=== PATIENT | male | born 1970 | race Caucasian/White ===

== ENCOUNTER 2023-12-08 10:48 | Emergency (ER) | payer SELFPAY ==
[2023-12-08 11:51] VITALS: BP 122/85; PULSE 95; RESP 18; TEMP 36.9; O2SAT 97; BMI 33.0
--- NOTE | 2023-12-08 12:45 | W.ED.RECABL ---
HPI - Recheck/Abnormal Lab/Rx General: Chief Complaint: General Medical Stated Complaint: med refills (just moved in area) Time Seen by Provider: 12/08/23 12:33 Source: patient Mode of arrival: ambulatory Limitations: no limitations History of Present Illness: Patient is a 53-year-old male presents to ED today requesting a prescription for his diabetic needle syringes. Patient states he recently moved from [place] and is out of these. He states they require a prescription. He has no other complaints at this time. He states he has an appointment with primary care in one week to discuss some other chronic issues. MD complaint: medication refill request Initial visit (ago): day(s) Returns today for: request for prescription Symptoms since prior visit: no new symptoms Associated symptoms: none Related Data Allergies Allergy/AdvReac Type Severity Reaction Status Date / Time No Known Allergies Allergy Verified 12/08/23 11:56 Review of Systems Const: Denies: fever(s) Card: Denies: chest pain Resp: Denies: dyspnea GI: Denies: abdominal pain, nausea or vomiting Neuro: Denies: headache(s) or dizziness Physical Exam Const: COMMON NORMALS: no acute distress, patient oriented x3, no limitations, alert and well nourished GENERAL APPEARANCE: cooperative ORIENTATION/CONSCIOUSNESS: Yes awake, Yes oriented to person, Yes oriented to place and Yes oriented to time HENMT: COMMON NORMALS: normocephalic and atraumatic HEAD & SCALP: normal to inspection, normocephalic and atraumatic Resp: COMMON NORMALS: normal respiratory effort and clear to auscultation bilaterally AUSCULTATION: clear to auscultation bilaterally Cardio: COMMON NORMALS: regular rate and regular rhythm RATE: regular rate RHYTHM: regular rhythm : COMMON NORMALS: Yes no CVA tenderness BLADDER/KIDNEY EXAM: Yes no CVA tenderness Back/Pelvis: COMMON NORMALS: no CVA tenderness and thoracic and lumbar spine normal to inspection Extremity: GENERAL: Yes normal exam except as noted Neuro: CHENG COMA SCALE: document GCS findings Cheng coma scale eye opening: Spontaneous Cheng coma scale verbal response: Orientated Cheng coma scale motor response: Obey commands Mcewen coma scale total score: 15 COMMON NORMALS: patient oriented x3, moves all extremities, no focal motor deficits, no sensory deficits noted and gait normal SENSORIUM/ORIENTATION: Yes alert, Yes oriented to person, Yes oriented to place and Yes oriented to time Course Vital Signs: Vital signs: Vital Signs Temperature 97.8 F 12/08/23 12:46 Pulse Rate 90 12/08/23 12:46 Respiratory Rate 18 12/08/23 12:46 Blood Pressure 111/77 12/08/23 12:46 Pulse Oximetry 96 12/08/23 12:46 Oxygen Delivery Me thod Room Air 12/08/23 11:51 MDM - Recheck/Abnormal Lab/Rx Medical Decision Making Akilah Wild was able to speak to Fouzia Merchant/pharmacist and we were able to get patient an entire box of insulin syringes. He is cleared for discharge from an emergency standpoint with instructions to follow-up with primary care next week as scheduled. No radiology studies performed this visit Discharge Plan Discharge Patient Disposition: Home Clinical Impression: Prescription refill Condition: Stable Discharge Orders: Discharge ED (Routine); Ordered 12/08/23 Ordered By: Silva Oneill Coding Level of Care Code ED Technical Solutions Director for Zarina Hernandez
[2023-12-08 12:46] VITALS: BP 111/77; PULSE 90; RESP 18; TEMP 36.6; O2SAT 96
== END 2023-12-08 13:06 | disposition home or self-care (01) ==
PROVIDERS: Emergency Provider Physician Assistant
DX: Z76.0 Encounter for issue of repeat prescription (principal)
CPT/HCPCS: 99281

== ENCOUNTER → 2024-01-25 16:13 | Outpatient (BNVA) | payer BC, MEDICAID, SELFPAY | PROVIDERS: PCP Family Medicine; Visit Provider Family Medicine | DX: I25.5 Ischemic cardiomyopathy (principal); I25.10 Atherosclerotic heart disease of native coronary artery without angina pectoris; E78.00 Pure hypercholesterolemia, unspecified; Z80.42 Family history of malignant neoplasm of prostate; E08.40 Diabetes mellitus due to underlying condition with diabetic neuropathy, unspecified; F17.210 Nicotine dependence, cigarettes, uncomplicated | CPT/HCPCS: 80053; 80061; 83036; 84153; 84443; 85025 ==

== ENCOUNTER → 2024-01-26 09:19 | Outpatient (BNVA) | payer BC, MEDICAID, SELFPAY | PROVIDERS: PCP Family Medicine; Visit Provider Family Medicine | DX: I25.5 Ischemic cardiomyopathy (principal); I25.10 Atherosclerotic heart disease of native coronary artery without angina pectoris; E78.00 Pure hypercholesterolemia, unspecified; E08.40 Diabetes mellitus due to underlying condition with diabetic neuropathy, unspecified; F17.210 Nicotine dependence, cigarettes, uncomplicated; Z80.42 Family history of malignant neoplasm of prostate | CPT/HCPCS: 82043 ==

== ENCOUNTER → 2024-03-14 15:39 | Outpatient (BNVA) | payer BC, MEDICAID, SELFPAY | PROVIDERS: PCP Family Medicine; Visit Provider Internal Medicine Cardiovascular Disease | DX: R07.9 Chest pain, unspecified (principal); R06.02 Shortness of breath; I25.118 Atherosclerotic heart disease of native coronary artery with other forms of angina pectoris; E78.00 Pure hypercholesterolemia, unspecified; I25.5 Ischemic cardiomyopathy; I10 Essential (primary) hypertension; Z86.718 Personal history of other venous thrombosis and embolism; F17.210 Nicotine dependence, cigarettes, uncomplicated; Z82.49 Family history of ischemic heart disease and other diseases of the circulatory system | CPT/HCPCS: 36415; 80048; 83880; 93005 ==

== ENCOUNTER → 2024-04-25 13:45 | Outpatient (BNVA) | payer BC, MEDICAID, SELFPAY | PROVIDERS: PCP Family Medicine; Visit Provider Family Medicine | DX: I25.5 Ischemic cardiomyopathy (principal); E08.40 Diabetes mellitus due to underlying condition with diabetic neuropathy, unspecified | CPT/HCPCS: 80048; 83036 ==

== ENCOUNTER 2024-06-02 10:45 | Emergency (ER) | payer BC, MEDICAID, SELFPAY ==
[2024-06-02 11:11] VITALS: BP 116/79; PULSE 78; RESP 16; TEMP 36.8; O2SAT 100; BMI 30.4
--- NOTE | 2024-06-02 11:17 | USR_ITS ---
PROCEDURE INFORMATION: Exam: US Duplex Left Lower Extremity Arteries Or Arterial Bypass Grafts Exam date and time: 06/02/2024 11:48 AM Age: 53 years old Clinical indication: Pain; Leg, lower; Left; Prior surgery; Surgery date: 6+ months; Surgery type: Unsure of patients correct history. Patient states he had a clot removed from leg and possible stent; Additional info: Leg pain, pvd, TECHNIQUE: Imaging protocol: Left Real-time duplex scan of the arteries or arterial bypass grafts of the left lower extremity with 2-D richard scale, color Doppler flow and spectral waveform analysis. Images documented and saved. COMPARISON: No relevant prior studies available. FINDINGS: Left common femoral artery: No occlusion or significant stenosis. Normal waveform. Left superficial femoral artery: No occlusion or significant stenosis. Normal waveform. Left popliteal artery: No occlusion or significant stenosis. Normal waveform. Left calf/foot arteries: Monophasic waveform is seen in the posterior tibial artery and dorsalis pedis artery. The anterior tibial artery and peroneal artery were not evaluated. Other findings: Ankle-brachial index is 0.55 US/CV arterial duplex [facility] [id number] IMPRESSION: 1. Findings suggest moderate left lower extremity PVD. 2. Findings suggest hemodynamically significant stenosis in the runoff vessels in the calf.
[2024-06-02 11:20] VITALS: BP 116/79; PULSE 76; RESP 18; O2SAT 98
--- NOTE | 2024-06-02 11:37 | W.ED.EXTPRO ---
HPI - Extremity Problem General: Chief complaint: Extremity Problem,Nontraumatic Stated complaint: pain in L leg, numbness, burining, redness Time Seen by Provider: 06/02/24 11:13 History of Present Illness: 53-year-old man with a history of peripheral vascular disease and history of thrombectomy in his left leg, chronic anticoagulation on Eliquis, continued tobacco dependence, hypertension and diabetes who presents to the emergency room with left leg pain. This been going on for few days now worsening. He has noticed some discoloration in his leg. The pain is from scar where he had a fasciotomy in the past when he had a blood clot. He says he also had stents placed. Leg does not feel cool at this time but he says it feels a lot like when he had the clot before. However pain is mostly from his scar down to his foot. Burning type pain. Related Data Home Medications ?Medication ?Instructions ?Recorded ?Confirmed insulin glargine 100 unit/mL 1 unit SUBCUT .sliding scale 12/15/23 06/02/24 subcutaneous solution Previous Rx's ?Medication ?Instructions ?Recorded apixaban 5 mg tablet (Eliquis) 5 mg PO BID #60 tabs 01/25/24 atorvastatin 80 mg tablet 80 mg PO DAILY #30 tabs 01/25/24 empagliflozin 25 mg tablet 25 mg PO DAILY #30 tabs 01/25/24 (Jardiance) losartan 25 mg tablet 12.5 mg (1/2 x 25 mg) PO DAILY #30 01/25/24 tabs methocarbamol 500 mg tablet 500 mg PO TID PRN muscle spasm #90 01/25/24 tabs metoprolol tartrate 25 mg tablet 12.5 mg (1/2 x 25 mg) PO BID #60 01/25/24 tabs spironolactone 25 mg tablet 25 mg PO DAILY #30 tabs 01/25/24 nitroglycerin 0.4 mg sublingual 0.4 mg sublingual Q5M PRN chest 03/14/24 tablet pain 30 days #30 tabs furosemide 20 mg tablet 20 mg PO DAILY PRN fluid retention 03/22/24 #30 tabs potassium chloride 8 mEq 8 meq PO DAILY PRN Take with 03/22/24 capsule,extended release furosemide #30 caps gabapentin 300 mg capsule 300 mg PO TID #90 caps 04/25/24 aspirin 81 mg chewable tablet 81 mg PO DAILY #30 tabs 05/31/24 hydrocodone 5 mg-acetaminophen 325 1 tab PO Q8H PRN pain #14 tabs 06/02/24 mg tablet polyethylene glycol 3350 17 17 g PO DAILY #510 grams 06/02/24 gram/dose oral powder (Miralax) Allergies Allergy/AdvReac Type Severity Reaction Status Date / Time No Known Allergies Allergy Verified 04/25/24 13:13 Review of Systems Narrative: Constitutional symptoms: Negative except as documented in HPI. Skin symptoms: Negative except as documented in HPI. Eye symptoms: Negative except as documented in HPI. ENMT symptoms: Negative except as documented in HPI. Respiratory symptoms: Negative except as documented in HPI. Cardiovascular symptoms: Negative except as documented in HPI. Gastrointestinal symptoms: Negative except as documented in HPI. Genitourinary symptoms: Negative except as documented in HPI. Musculoskeletal symptoms: Negative except as documented in HPI. Neurologic symptoms: Negative except as documented in HPI. Psychiatric symptoms: Negative except as documented in HPI. Endocrine symptoms: Negative except as documented in HPI. PFSH ED PFSH: Medical History Family hx of prostate cancer Uncontrolled type 2 diabetes mellitus with insulin therapy Nicotine dependence, cigarettes, uncomplicated CAD (coronary artery disease) hx of [place] in past (he didn't realize it, testing shows it) Cardiomyopathy EF 21% October 2023; EF 38% on ECHO done in [place] 02.02.24 Diabetic neuropathy associated with diabetes mellitus due to underlying condition History of arterial thrombosis Left leg arterial thromboembolism Hypercholesterolemia Type 2 diabetes mellitus HTN (hypertension) with goal to be determined Surgical History Hx of cardiac cath 10.16.23 [facility]: CAD of LAD and RCA Hx of fasciotomy left lower leg--had 4 compartment fasciotomy for compartment syndrome after arterial thromboembolism 10/24 History of thrombectomy L leg intra-arterial thrombolysis, thromboendarterectomy w/ L SFA stenting Family History Father Hypertension Heart disease Prostate cancer Renal cancer Mother Lung disease Hypertension Brother CAD (coronary artery disease) Chronic kidney disease (CKD) Social History Smoking and tobacco/nicotine status: current every day tobacco/nicotine user cigarettes Packs smoked per day: 1 [ Other cigarette details: now 06/04ppd 04.25.24] Alcohol intake: former Year of sobriety/quit date alcohol: 2019 Substance/Drug Use: never Household members: family Housing: Other Details: currently living with sister and her Marital status: Number of children: 0 Highest education level completed: 10th Grade Current occupational status: unemployed 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 Skin: Warm, dry. There is a mild vasculitic appearing rash on the median side of the left leg. Head: Normocephalic, atraumatic. Neck: Supple, trachea midline. Eye: Extraocular movements are intact. Ears, nose, mouth and throat: mucosa moist. Cardiovascular: Regular, Normal peripheral perfusion. Slightly diminished pedal pulses. However he does have good cap refill. Leg is not cool. Respiratory: Lungs are clear to auscultation, respirations are non-labored, breath sounds are equal, Symmetrical chest wall expansion. Gastrointestinal: Soft, Nontender, Non distended Musculoskeletal: Normal ROM, no deformity. Neurological: Alert and oriented, No focal neurological deficit observed. Psychiatric: Cooperative, appropriate mood & affect. Course Vital Signs: Vital signs: Vital Signs Temperature 98.2 F 06/02/24 11:11 Pulse Rate 76 06/02/24 11:20 Respiratory Rate 18 06/02/24 11:20 Blood Pressure 116/79 06/02/24 11:20 Pulse Oximetry 98 06/02/24 11:20 Oxygen Delivery Me thod Room Air 06/02/24 11:11 MDM - Extremity (Nontraumatic) Medical Decision Making Arterial duplex ultrasound: No evidence of acute arterial occlusion. This was reviewed and interpreted by myself the emergency room physician. I also reviewed the radiology report. Lab Review: Laboratory results were reviewed and interpreted by myself the emergency room physician. No leukocytosis. Stable polycythemia. No renal failure. I reviewed the patient's medical record. Reexamination: Patient remained stable. No increased work of breathing. No altered mental status. No focal motor deficits. Assessment and plan: Neuropathic pain Peripheral vascular disease Tobacco dependence ? Patient is appropriately anticoagulated. I have stressed repeatedly that he must stop smoking. He does appear to have some sort of vasculitic appearing rash on his leg but no major vascular occlusions. He received IV Dilaudid and Zofran here in the emergency room. He will follow-up with his primary care provider and his wrinkle chaser as soon as possible. - Discharged home - Discussed plan with patient. Answered any questions. - Evaluation and treatment of this problem were appropriate in the emergency setting. Lab Data 06/02/24 11:46 06/02/24 11:46 Laboratory Results WBC 10.81 10^3/uL (3.29-11.43) 06/02/24 11:46 RBC 6.14 10^6/uL (3.85-5.65) H 06/02/24 11:46 Hgb 17.00 g/dL (11.27-16.99) H 06/02/24 11:46 Hct 51.6 % (37-53) 06/02/24 11:46 MCV 84.0 fl (82-101) 06/02/24 11:46 MCH 27.7 pg (27-33) 06/02/24 11:46 MCHC 32.9 g/dL (30-55) 06/02/24 11:46 RDW 14.4 % (12.1-15.1) 06/02/24 11:46 Plt Count 867 10^3/cmm (157-399) H 06/02/24 11:46 MPV 9.0 fL (7.4-10.4) 06/02/24 11:46 Neut % (Auto) 59.8 % 06/02/24 11:46 Lymph % (Auto) 32.9 % 06/02/24 11:46 Routt % (Auto) 4.6 % 06/02/24 11:46 Eos % (Auto) 1.9 % 06/02/24 11:46 Baso % (Auto) 0.5 % 06/02/24 11:46 Neut # (Auto) 6.46 10^3/uL (1.8-7.7) 06/02/24 11:46 Lymph # (Auto) 3.6 10^3/uL (0.8-4.8) 06/02/24 11:46 Routt # (Auto) 0.5 10^3/uL (0.2-0.9) 06/02/24 11:46 Eos # (Auto) 0.2 10^3/uL (0.0-0.8) 06/02/24 11:46 Baso # (Auto) 0.1 10^3/uL (0.0-0.1) 06/02/24 11:46 Nucleated RBC % (auto) 0 % 06/02/24 11:46 Nucleated RBCs # 0.0 /100WBC 06/02/24 11:46 PT 14.60 SECONDS (12.1-14.9) 06/02/24 11:46 INR 1.06 (0.8-1.2) 06/02/24 11:46 APTT 34.2 SECONDS (23.9-36.7) 06/02/24 11:46 Sodium 137 mmol/L (136-145) 06/02/24 11:46 Potassium 4.1 mmol/L (3.5-5.1) 06/02/24 11:46 Chloride 100 mmol/L (98-107) 06/02/24 11:46 Carbon Dioxide 24 mmol/L (22-29) 06/02/24 11:46 Anion Gap 17.1 (5-19) 06/02/24 11:46 BUN 17 mg/dL (6-20) 06/02/24 11:46 Creatinine 0.7 mg/dL (0.7-1.2) 06/02/24 11:46 GFR Calculation 118.0 mL/min (90-130) 06/02/24 11:46 Glucose 165 mg/dL (65-115) H 06/02/24 11:46 Calculated Osmolality 289 mOsm/kg (285-295) 06/02/24 11:46 Lactic Acid 1.6 mmol/L (0.5-2.2) 06/02/24 11:46 Calcium 9.2 mg/dL (8.5-10.5) 06/02/24 11:46 Total Bilirubin 0.4 mg/dL (0.15-1.2) 06/02/24 11:46 AST 26 U/L (0-40) 06/02/24 11:46 ALT 43 U/L (0-41) H 06/02/24 11:46 Alkaline Phosphatase 102 U/L (40-130) 06/02/24 11:46 Total Protein 7.4 g/dL (6.6-8.7) 06/02/24 11:46 Albumin 4.2 g/dL (3.5-5.2) 06/02/24 11:46 Globulin 3.2 g/dL (1.3-4.6) 06/02/24 11:46 All radiology interpretation(s) finalized by discharge Discharge Plan Discharge Patient Disposition: Home Clinical Impression: Neuropathic pain, PVD (peripheral vascular disease), Tobacco dependence, Chronic anticoagulation Condition: Stable Prescriptions: New hydrocodone-acetaminophen 5-325 mg tablet 1 tab PO Q8H PRN (Reason: pain) Qty: 14 0RF Rx Instructions: Take 1/2 to 1 tab every 8 hours as needed for pain polyethylene glycol 3350 [Miralax] 17 gram/dose powder 17 g PO DAILY Qty: 510 0RF Rx Instructions: Take 1 scoop daily while taking pain medications. No Action insulin glargine 100 unit/mL solution 1 unit SUBCUT .sliding scale gabapentin 300 mg capsule 300 mg PO TID Qty: 90 1RF Eliquis 5 mg tablet 5 mg PO BID Qty: 60 5RF atorvastatin 80 mg tablet 80 mg PO DAILY Qty: 30 5RF Jardiance 25 mg tablet 25 mg PO DAILY Qty: 30 5RF losartan 25 mg tablet 12.5 mg PO DAILY Qty: 30 5RF methocarbamol 500 mg tablet 500 mg PO TID PRN (Reason: muscle spasm) Qty: 90 5RF metoprolol tartrate 25 mg tablet 12.5 mg PO BID Qty: 60 5RF spironolactone 25 mg tablet 25 mg PO DAILY Qty: 30 5RF nitroglycerin 0.4 mg tablet, sublingual 0.4 mg sublingual Q5M PRN (Reason: chest pain) 30 Days Qty: 30 3RF Rx Instructions: until response; do not exceed 3 doses per episode furosemide 20 mg tablet 20 mg PO DAILY PRN (Reason: fluid retention) Qty: 30 3RF potassium chloride 8 mEq capsule, extended release 8 meq PO DAILY PRN (Reason: Take with furosemide) Qty: 30 3RF aspirin 81 mg tablet,chewable 81 mg PO DAILY Qty: 30 5RF Discharge Orders: Discharge ED (Routine); Ordered 06/02/24 Ordered By: Sonya Addison Referrals: Chayo Gomez MD [Primary Care Provider] - 1-3 days (Please call for urgent follow-up with your primary provider) Discharge Diet: Usual diet Discharge Activity: Increase activity as tolerated Patient Instructions: Opioid Safety, Pain Management Activity Restrictions/Additional Instructions: Thank you for choosing [facility] for your healthcare needs today. Please realize this is an emergency room and that we are providing you with a medical screening exam and this may not be complete and all inclusive of all the testing and or work up that you may need to determine your ailment or severity of your illness. You have been screened and evaluated and felt safe for discharge. Health conditions do change or evolve sometimes and as such it is important that you follow up with your Primary Doctor to be re checked, 3-5 days is a general good time frame for follow up. You are always welcome to return to the ED for re assessment if your symptoms are worsening or you have new concerns Print Language: Maori Coding Level of Care Code ED Certified Welding Inspector for Zarina Hernandez
[2024-06-02 11:53] LABS: Basophils # 0.1 10^3/uL (0.0-0.1); Basophils % 0.5 %; Eosinophils # 0.2 10^3/uL (0.0-0.8); Eosinophils % 1.9 %; Hematocrit 51.6 % (37-53); Lymphocytes # 3.6 10^3/uL (0.8-4.8); Lymphocytes % 32.9 %; Mean Corpuscular HGB Conc 32.9 g/dL (30-55); Mean Corpuscular Hemoglobin 27.7 pg (27-33); Monocytes # 0.5 10^3/uL (0.2-0.9); Monocytes % 4.6 %; Neutrophils # 6.46 10^3/uL (1.8-7.7); Neutrophils % 59.8 %; Nucleated Red Blood Cells % 0 %; Platelet Count 867 10^3/cmm (157-399); Red Blood Count 6.14 10^6/uL (3.85-5.65); Red Cell Distribution Width 14.4 % (12.1-15.1); White Blood Count 10.81 10^3/uL (3.29-11.43)
[2024-06-02 12:03] LABS: INR 1.06 (0.8-1.2)
[2024-06-02 12:04] LABS: Partial Thromboplastin Time 34.2 SECONDS (23.9-36.7)
[2024-06-02 12:08] LABS: Alanine Aminotransferase 43 U/L (0-41); Albumin Level 4.2 g/dL (3.5-5.2); Alkaline Phosphatase 102 U/L (40-130); Anion Gap 17.1 (5-19); Aspartate Amino Transferase 26 U/L (0-40); Blood Urea Nitrogen 17 mg/dL (6-20); Calcium 9.2 mg/dL (8.5-10.5); Carbon Dioxide 24 mmol/L (22-29); Chloride 100 mmol/L (98-107); Creatinine Clr Calc Pharmacy 168.1986; Globulin 3.2 g/dL (1.3-4.6); Glucose 165 mg/dL (65-115); Lactic Sepsis W/Reflex 1.6 mmol/L (0.5-2.2); Osmolality Calculated 289 mOsm/kg (285-295); Potassium 4.1 mmol/L (3.5-5.1); Sodium 137 mmol/L (136-145); Total Bilirubin 0.4 mg/dL (0.15-1.2); Total Protein 7.4 g/dL (6.6-8.7)
[2024-06-02] MEDS: ondansetron 2 mg/ML SDV 2 mL 4 MG IVP (12:27)
[2024-06-02] MEDS: HYDROMORPHONE HCL 0.5 MG/0.5 ML INJ 1 MG IVP (12:29)
[2024-06-02 13:46] VITALS: BP 108/77; PULSE 74; RESP 18; O2SAT 95
== END 2024-06-02 13:48 | disposition home or self-care (01) ==
PROVIDERS: Emergency Provider Emergency Medicine; PCP Family Medicine
DX: I70.202 Unspecified atherosclerosis of native arteries of extremities, left leg (principal); F17.210 Nicotine dependence, cigarettes, uncomplicated; Z79.01 Long term (current) use of anticoagulants; M79.2 Neuralgia and neuritis, unspecified; Z79.4 Long term (current) use of insulin; Z79.82 Long term (current) use of aspirin; I25.10 Atherosclerotic heart disease of native coronary artery without angina pectoris; E11.9 Type 2 diabetes mellitus without complications; I10 Essential (primary) hypertension
CPT/HCPCS: 36415; 80053; 83605; 85025; 85610; 85730; 93926; 96374; 96375; 99284; J1171; J2405

== ENCOUNTER 2024-06-19 15:33 | Outpatient (CLI) | payer BC, MEDICAID, SELFPAY ==
--- NOTE | 2024-06-19 16:00 | CTR_ITS ---
PROCEDURE INFORMATION: Exam: CTA Abdominal Aorta and Bilateral Lower Extremities (Run-off) With Contrast Exam date and time: 06/19/2024 4:00 PM Age: 53 years old Clinical indication: Foot pain; Prior surgery; Surgery date: 1-6 months; Surgery type: Left lower leg blood clot removal and stent; Pain in left lower extremity, left side toes turning black, 1st and 5th with blisters. Heavy smoker; Additional info: Left lower extremity pain TECHNIQUE: Imaging protocol: Computed tomographic angiography of the of the abdominal aorta, pelvis and bilateral lower extremities with contrast. 3D rendering (Not supervised by radiologist): MIP and/or 3D reconstructed images were created by the technologist. Radiation optimization: All CT scans at this facility use at least one of these dose optimization techniques: automated exposure control; mA and/or kV adjustment per patient size (includes targeted exams where dose is matched to clinical indication); or iterative reconstruction. Contrast material: OMNIPAQUE 350; Contrast volume: 125 ml; Contrast route: INTRAVENOUS (IV); COMPARISON: [place] [id number] 06/02/2024 11:48 AM RADIATION DOSE METRICS: Total DLP (mGy-cm): 1871.66 FINDINGS: Aorta: No aortic aneurysm. No aortic dissection. Celiac trunk and mesenteric arteries: No occlusion or significant stenosis. Renal arteries: No occlusion or significant stenosis. Right iliac arteries: The right common iliac and external iliac artery are patent. Right femoral/popliteal arteries: The right common femoral artery, superficial femoral artery and popliteal artery are patent. Right infrapopliteal arteries: The right posterior tibial and peroneal arteries are opacified down to the level of the ankle. The right anterior tibial artery is opacified down to the level of the mid calf. Left iliac arteries: The left common iliac artery and external iliac artery are patent. Left femoral/popliteal arteries: The left common femoral artery is patent. There is severe stenosis in the mid left superficial femoral artery (series 6, image 533) just distal to this stenosis there is a patent stent in the left superficial femoral artery. The left popliteal artery is patent. Left infrapopliteal arteries: The left anterior tibial, posterior tibial and peroneal arteries are occluded at their origin. Lungs: There are 2 juxtapleural pulmonary nodules measuring up to 11 mm (series 6, image 25) impression in the right middle lobe and a triangular juxtapleural pulmonary nodule in the right lung base measuring up to 10 mm. Liver: No mass. Gallbladder and biliary ducts: Unremarkable. No calcified stones. No ductal dilation. Pancreas: Unremarkable. No mass. No ductal dilation. Spleen: Multiple punctate calcifications in the spleen consistent with prior granulomatous infection. Adrenal glands: Normal. No mass. Kidneys and ureters: Bilateral simple appearing renal cysts are present which do not need further follow-up. Stomach and bowel: Unremarkable. No obstruction. No mucosal thickening. Appendix: No evidence of appendicitis. Urinary bladder: Unremarkable. No mass. Reproductive: Unremarkable as visualized. Intraperitoneal space: Unremarkable. No free air. No significant fluid collection. Lymph nodes: No lymphadenopathy. Bones/joints: No acute fracture. No dislocation. Soft tissues: Unremarkable. CT/CT angio abd aorta runof [id number] IMPRESSION: 1. The right common iliac and external iliac artery are patent. 2. The right common femoral artery, superficial femoral artery and popliteal artery are patent. 3. The right posterior tibial and peroneal arteries are opacified down to the level of the ankle. The right anterior tibial artery is opacified down to the level of the mid calf. 4. The left common iliac artery and external iliac artery are patent. 5. The left common femoral artery is patent. There is severe stenosis in the mid left superficial femoral artery (series 6, image 533) just distal to this stenosis there is a patent stent in the left superficial femoral artery. The left popliteal artery is patent. 6. The left anterior tibial, posterior tibial and peroneal arteries are occluded at their origin. 7. There are 2 juxtapleural pulmonary nodules measuring up to 11 mm (series 6, image 25) impression in the right middle lobe and a triangular juxtapleural pulmonary nodule in the right lung base measuring up to 10 mm. For patients at low risk (minimal or absent history of smoking and of other known risk factors), recommend CT Chest at 3-6 months, then consider CT Chest at 18-24 months. For patients at high risk (history of smoking or of other known risk factors), recommend CT Chest at 3-6 months, then CT Chest at 18-24 months. (Reference: Donna) References: Donna Huff et al. Guidelines for Management of Incidental Pulmonary Nodules Detected on CT Images: From the Fleischner Society 2017. Radiology. 2017;284(1):228-243.
[2024-06-19] MEDS: iohexol 350 mg/mL 500 mL Btl (per mL) IV (16:15)
== END 2024-06-19 15:34 | disposition home or self-care (01) ==
PROVIDERS: PCP Family Medicine; Visit Provider Nurse Practitioner Family
DX: Z86.718 Personal history of other venous thrombosis and embolism (principal); R93.89 Abnormal findings on diagnostic imaging of other specified body structures; I70.202 Unspecified atherosclerosis of native arteries of extremities, left leg; I70.8 Atherosclerosis of other arteries; R91.8 Other nonspecific abnormal finding of lung field; D73.89 Other diseases of spleen; N28.1 Cyst of kidney, acquired
CPT/HCPCS: 75635

== ENCOUNTER 2024-06-19 20:08 | Emergency (ER) | payer BC, MEDICAID, SELFPAY ==
[2024-06-19 20:10] VITALS: BP 116/79; PULSE 82; RESP 18; TEMP 36.6; O2SAT 98; BMI 31.0
[2024-06-19 21:35] VITALS: BP 125/94; PULSE 77; RESP 18; O2SAT 95
[2024-06-19] MEDS: morphine 4 mg/mL SDV 1 mL 10 MG IM (21:41)
[2024-06-19] MEDS: ondansetron hcl ODT 4 mg Tab PO (21:41)
[2024-06-19 22:01] VITALS: BP 125/94; PULSE 83; RESP 18; O2SAT 94
[2024-06-19 22:17] VITALS: BP 125/94; PULSE 83; RESP 18; O2SAT 94
--- NOTE | 2024-06-20 03:03 | W.ED.EXTPRO ---
HPI - Extremity Problem General: Chief complaint: Extremity Injury, Lower Stated complaint: Dr Infante Blood Clots in L Leg Below Knee Time Seen by Provider: 06/19/24 20:23 History of Present Illness: This patient is a 53-year-old white male who was sent to the emergency department for arterial clots in the left leg . Patient had undergone a CT angiogram of the lower extremities earlier today. Angiogram did reveal some occlusions. Patient has had pain in the left leg and foot. He has noticed some discoloration of the toes. He does have a history of peripheral vascular disease and had had a stent placed in the left lower extremity in [place]. Related Data Home Medications ?Medication ?Instructions ?Recorded ?Confirmed insulin glargine 100 unit/mL 1 unit SUBCUT .sliding scale 12/15/23 06/17/24 subcutaneous solution Previous Rx's ?Medication ?Instructions ?Recorded apixaban 5 mg tablet (Eliquis) 5 mg PO BID #60 tabs 01/25/24 atorvastatin 80 mg tablet 80 mg PO DAILY #30 tabs 01/25/24 losartan 25 mg tablet 12.5 mg (1/2 x 25 mg) PO DAILY #30 01/25/24 tabs methocarbamol 500 mg tablet 500 mg PO TID PRN muscle spasm #90 01/25/24 tabs metoprolol tartrate 25 mg tablet 12.5 mg (1/2 x 25 mg) PO BID #60 01/25/24 tabs spironolactone 25 mg tablet 25 mg PO DAILY #30 tabs 01/25/24 nitroglycerin 0.4 mg sublingual 0.4 mg sublingual Q5M PRN chest 03/14/24 tablet pain 30 days #30 tabs furosemide 20 mg tablet 20 mg PO DAILY PRN fluid retention 03/22/24 #30 tabs potassium chloride 8 mEq 8 meq PO DAILY PRN Take with 03/22/24 capsule,extended release furosemide #30 caps gabapentin 300 mg capsule 300 mg PO TID #90 caps 04/25/24 aspirin 81 mg chewable tablet 81 mg PO DAILY #30 tabs 05/31/24 polyethylene glycol 3350 17 17 g PO DAILY #510 grams 06/02/24 gram/dose oral powder (Miralax) glimepiride 4 mg tablet 4 mg PO DAILY #90 tabs 03/17/25 oxycodone 5 mg tablet 5 mg PO Q8H PRN pain 7 days #20 06/17/24 tabs oxycodone-acetaminophen 5 mg-325 1 tab PO Q4H PRN pain #30 tabs 06/19/24 mg tablet (Percocet) Allergies Allergy/AdvReac Type Severity Reaction Status Date / Time No Known Allergies Allergy Verified 06/17/24 16:21 Review of Systems General: Reports: 10 or more systems reviewed and unremarkable except in HPI and below Musc: Reports: extremity pain (Left leg and foot) PFSH ED PFSH: Medical History (Updated 06/19/24 @ 22:13 by Luis Gary MD) Blister of foot, left Arterial insufficiency of lower extremity Left lower leg--CTA scheduled 06.19.24 Family hx of prostate cancer Uncontrolled type 2 diabetes mellitus with insulin therapy Nicotine dependence, cigarettes, uncomplicated CAD (coronary artery disease) hx of IA in past (he didn't realize it, testing shows it) Cardiomyopathy EF 21% October 2023; EF 38% on ECHO done in [place] 02.02.24 Diabetic neuropathy associated with diabetes mellitus due to underlying condition History of arterial thrombosis Left leg arterial thromboembolism Hypercholesterolemia Type 2 diabetes mellitus HTN (hypertension) with goal to be determined Surgical History Hx of cardiac cath 10.16.23 [facility]: CAD of LAD and RCA Hx of fasciotomy left lower leg--had 4 compartment fasciotomy for compartment syndrome after arterial thromboembolism 10/24 History of thrombectomy L leg intra-arterial thrombolysis, thromboendarterectomy w/ L SFA stenting Family History Father Hypertension Heart disease Prostate cancer Renal cancer Mother Lung disease Hypertension Brother CAD (coronary artery disease) Chronic kidney disease (CKD) Social History Smoking and tobacco/nicotine status: current every day tobacco/nicotine user cigarettes Packs smoked per day: 1 [ Other cigarette details: now 06/04ppd 04.25.24] Alcohol intake: former Year of sobriety/quit date alcohol: 2019 Substance/Drug Use: never Household members: family Housing: Other Details: currently living with sister and her Marital status: Number of children: 0 Highest education level completed: 10th Grade Current occupational status: unemployed 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 [employer] Physical Exam Const: COMMON NORMALS: no acute distress, patient oriented x3 and no limitations GENERAL APPEARANCE: cooperative and comfortable HENMT: COMMON NORMALS: normocephalic, atraumatic, Normal nasal mucous membranes and turbinates present, moist oral mucous membranes and oropharynx normal HEAD & SCALP: normal to inspection, normocephalic and atraumatic FACE & SINUS: normal facial exam NOSE: Normal nasal mucous membranes and turbinates present Eye: COMMON NORMALS: Equal, round and reactive pupils present, EOMs intact bilaterally and conjunctivae normal GENERAL EYE: appearance normal, both eyes and all related structures CONJUNCTIVA: Yes conjunctivae normal PUPIL: Yes Equal, round and reactive pupils present Neck/C-Spine: COMMON NORMALS: supple and no JVD Chest: COMMONS NORMALS: normal inspection of the chest Resp: COMMON NORMALS: normal respiratory effort and clear to auscultation bilaterally AUSCULTATION: clear to auscultation bilaterally Cardio: COMMON NORMALS: no JVD, regular rate, regular rhythm, No gallops present (Cardio), No murmurs present (Cardio) and No rub (Cardio) RATE: regular rate RHYTHM: regular rhythm GI: COMMON NORMALS: Normal to inspection, nondistended, normoactive bowel sounds present, Soft to palpation and non-tender AUSCULTATION: Yes normoactive bowel sounds PALPATION: Yes Soft to palpation : COMMON NORMALS: Yes no CVA tenderness BLADDER/KIDNEY EXAM: Yes no CVA tenderness Back/Pelvis: COMMON NORMALS: no CVA tenderness and thoracic and lumbar spine normal to inspection Extremity: NARRATIVE EXTREMITY EXAM: The left foot was pink and warm. Brisk capillary refill in all of the toes. He did have some bluish discoloration of the tip of the great toe as well as the second toe on the left foot. Neuro: COMMON NORMALS: patient oriented x3 and CN's II-XII intact bilaterally Psych: COMMON NORMALS: mental status grossly normal, Normal thought process present and cooperative THOUGHT PROCESS: Normal thought process present Skin: COMMON NORMALS: no rashes or lesions noted, turgor normal and no jaundice GENERAL SKIN EXAM: no rashes or lesions noted and turgor normal Course Vital Signs: Vital signs: Vital Signs Temperature 97.9 F 06/19/24 20:10 Pulse Rate 83 06/19/24 22:17 Respiratory Rate 18 06/19/24 22:17 Blood Pressure 125/94 06/19/24 22:17 Pulse Oximetry 94 06/19/24 22:17 Oxygen Delivery Me thod Room Air 06/19/24 21:35 MDM - Extremity (Nontraumatic) Medical Decision Making I discussed the case with the vascular surgeon at [facility], Dr. Engel. I reviewed the CT angiogram with him. He does not feel the patient needs any immediate intervention. He would like the patient contact his clinic tomorrow to schedule an appointment for further workup and recommendations. I did prescribe oxycodone for his pain. Patient was given a morphine injection in the emergency department for his pain. He was discharged in stable condition. No radiology studies performed this visit Discharge Plan Discharge Patient Disposition: Home Clinical Impression: Peripheral vascular disease Condition: Stable Prescriptions: New oxycodone-acetaminophen [Percocet] 5-325 mg tablet 1 tab PO Q4H PRN (Reason: pain) Qty: 30 0RF No Action insulin glargine 100 unit/mL solution 1 unit SUBCUT .sliding scale gabapentin 300 mg capsule 300 mg PO TID Qty: 90 1RF Eliquis 5 mg tablet 5 mg PO BID Qty: 60 5RF atorvastatin 80 mg tablet 80 mg PO DAILY Qty: 30 5RF losartan 25 mg tablet 12.5 mg PO DAILY Qty: 30 5RF methocarbamol 500 mg tablet 500 mg PO TID PRN (Reason: muscle spasm) Qty: 90 5RF metoprolol tartrate 25 mg tablet 12.5 mg PO BID Qty: 60 5RF spironolactone 25 mg tablet 25 mg PO DAILY Qty: 30 5RF nitroglycerin 0.4 mg tablet, sublingual 0.4 mg sublingual Q5M PRN (Reason: chest pain) 30 Days Qty: 30 3RF Rx Instructions: until response; do not exceed 3 doses per episode glimepiride 4 mg tablet 4 mg PO DAILY Qty: 90 0RF oxycodone 5 mg tablet 5 mg PO Q8H PRN (Reason: pain) 7 Days Qty: 20 0RF furosemide 20 mg tablet 20 mg PO DAILY PRN (Reason: fluid retention) Qty: 30 3RF potassium chloride 8 mEq capsule, extended release 8 meq PO DAILY PRN (Reason: Take with furosemide) Qty: 30 3RF aspirin 81 mg tablet,chewable 81 mg PO DAILY Qty: 30 5RF polyethylene glycol 3350 [Miralax] 17 gram/dose powder 17 g PO DAILY Qty: 510 0RF Rx Instructions: Take 1 scoop daily while taking pain medications. Discharge Orders: Discharge ED (Routine); Ordered 06/19/24 Ordered By: Luis Gary Referrals: Chayo Gomez MD [Primary Care Provider] - Patient Instructions: Peripheral Vascular Disease (ED), Opioid Safety, Pain Management Activity Restrictions/Additional Instructions: Call Dr. Engel's office tomorrow to schedule an appointment. Print Language: Macedonian Coding Level of Care Code ED Assistant Administrator for Zarina Hernandez
== END 2024-06-19 22:29 | disposition home or self-care (01) ==
PROVIDERS: Emergency Provider Emergency Medicine; PCP Family Medicine
DX: I73.9 Peripheral vascular disease, unspecified (principal); M79.605 Pain in left leg; Z79.01 Long term (current) use of anticoagulants; Z79.82 Long term (current) use of aspirin; F17.210 Nicotine dependence, cigarettes, uncomplicated; I25.10 Atherosclerotic heart disease of native coronary artery without angina pectoris; I10 Essential (primary) hypertension; E11.40 Type 2 diabetes mellitus with diabetic neuropathy, unspecified
CPT/HCPCS: 96372; 99284; J2270; Q0162

== ENCOUNTER 2024-07-16 15:00 | Outpatient (CLI) | payer BC, MEDICAID, SELFPAY ==
--- NOTE | 2024-07-16 15:05 | XRR_ITS ---
PROCEDURE INFORMATION: Exam: XR Left Foot Exam date and time: 07/16/2024 3:43 PM Age: 53 years old Clinical indication: Pain; Foot; Left; Blood clot in lt leg with stent in lt leg with neuropathy and sores onset after, special attn to L lateral heel and 5th digit, sores present; Additional info: E11.621 - type 2 diabetes mellitus with foot ulcer, special attn to L lateral heel and 5 digit TECHNIQUE: Imaging protocol: Radiologic exam of the left foot. Views: 3 or more views. COMPARISON: CT angio abd aorta runof [id number] 06/19/2024 4:00 PM FINDINGS: Bones/joints: Small plantar calcaneal enthesophyte. Calcaneal Achilles insertional enthesophyte. No acute fracture or dislocation. Mild degenerative changes of the interphalangeal joints. No bone erosion evident. Soft tissues: No significant soft tissue pathology. XR/XR foot LT min 3V* [id number] IMPRESSION: Small plantar calcaneal enthesophyte and mild degenerative change. No acute pathology.
== END 2024-07-16 15:01 | disposition home or self-care (01) ==
PROVIDERS: PCP Family Medicine
DX: E11.621 Type 2 diabetes mellitus with foot ulcer (principal); L97.509 Non-pressure chronic ulcer of other part of unspecified foot with unspecified severity; I73.9 Peripheral vascular disease, unspecified; M77.32 Calcaneal spur, left foot; M19.072 Primary osteoarthritis, left ankle and foot
CPT/HCPCS: 73630; 87070; 87075; 87205

== ENCOUNTER 2024-07-22 08:53 | Outpatient (CLI) | payer BC, MEDICAID, SELFPAY ==
--- NOTE | 2024-07-22 09:15 | USCV_ITS ---
Bennett Millard Age: 53 Gender: M : 1970 Exam Date: 07/22/2024 09:11 Ordering Phys: Silva Pena NP Technologist: Exam Location: [facility] [place] Indication: cp BP: 130 / 80 HR: 70 Rhythm: Sinus Technical Quality: Adequate MEASUREMENTS (Male / Female) Normal Values 2D ECHO LV Diastolic Diameter PLAX 5.7 cm 4.2 - 5.9 / 3.9 - 5.3 cm IVS Diastolic Thickness 1.3 cm 0.6 - 1.0 / 0.6 - 0.9 cm IVS Systolic Thickness 1.9 cm LVPW Diastolic Thickness 1.5 cm 0.6 - 1.0 / 0.6 - 0.9 cm LVPW Systolic Thickness 1.9 cm LVOT Diameter 2.1 cm LV Ejection Fraction 2D Teich 64.8 % LV Ejection Fraction MOD 4C 52.8 % LV Ejection Fraction MOD 2C 46.1 % LV Ejection Fraction 2C AL 44.9 % LA Diameter 4.2 cm Aorta at Sinotubular Diameter 3.5 cm IVC Diameter 2.2 cm M-MODE LA Ao Ratio MM 1.2 AV Cusp Separation MM 2.5 cm DOPPLER AV Peak Velocity 126.7 cm/s LVOT Peak Velocity 114.0 cm/s AV Area Cont Eq vti 3.5 cm squared AV Area Cont Eq pk 3.0 cm squared MV Peak Velocity 101.0 cm/s MV Area PHT 4.0 cm squared Mitral E to A Ratio 0.9 TV Peak Velocity 165.0 cm/s TR Peak Velocity 194.0 cm/s TR Peak Gradient 15.1 mmHg TV Peak E Velocity 88.0 cm/s FINDINGS Left Ventricle Hypokinesis of the mid and apical septum, anteroseptum, apical inferior and inferolateral wall segments. LV ejection fraction around 46%. Mildly dilated LV cavity.Grade I/IV diastolic dysfunction (abnormal relaxation filling pattern), normal to mildly elevated filling pressures. Right Ventricle The right ventricle is normal in size and function. Right Atrium The right atrium is normal in size. Left Atrium The left atrium is normal in size. Mitral Valve Mild mitral valve regurgitation. Aortic Valve No gross abnormalities Tricuspid Valve No gross abnormalities noted Pulmonic Valve Pulmonic valve not well visualized. Pericardium Normal pericardium without effusion. Aorta Normal ascending aorta dimension. IVC Normal inferior vena cava. CONCLUSIONS Hypokinesis of the mid and apical septum, anteroseptum, apical inferior and inferolateral wall segments. LV ejection fraction around 46%. Mildly dilated LV cavity.Grade I/IV diastolic dysfunction (abnormal relaxation filling pattern), normal to mildly elevated filling pressures. Mild mitral valve regurgitation. There is no pericardial effusion. There are no intracardiac masses. No similar previous studies are available for comparison Dr Praveena Bustos MD [facility] (Electronically Signed) Final Date: 24 July 2024 10:02 S
== END 2024-07-22 08:54 | disposition home or self-care (01) ==
LOC: RAD 08:54
PROVIDERS: PCP Family Medicine; Visit Provider Nurse Practitioner Family
DX: I25.5 Ischemic cardiomyopathy (principal); R93.1 Abnormal findings on diagnostic imaging of heart and coronary circulation; I34.0 Nonrheumatic mitral (valve) insufficiency; I51.7 Cardiomegaly
CPT/HCPCS: 93306

== ENCOUNTER → 2024-07-30 13:27 | Outpatient (BNVA) | payer BC, MEDICAID, SELFPAY | PROVIDERS: PCP Family Medicine; Visit Provider Family Medicine | DX: E11.40 Type 2 diabetes mellitus with diabetic neuropathy, unspecified (principal); Z79.4 Long term (current) use of insulin | CPT/HCPCS: 83036 ==

== ENCOUNTER → 2024-10-31 12:15 | Outpatient (BNVA) | payer BC, MEDICAID, SELFPAY | PROVIDERS: PCP Family Medicine; Visit Provider Family Medicine | DX: E11.40 Type 2 diabetes mellitus with diabetic neuropathy, unspecified (principal); I25.5 Ischemic cardiomyopathy | CPT/HCPCS: 80048; 83036 ==

== ENCOUNTER 2024-11-07 09:54 | Outpatient (CLI) | payer BC, MEDICAID, SELFPAY ==
--- NOTE | 2024-11-07 10:00 | CT_ITS ---
WS: [id number] CT chest wo con [id number] HISTORY: R lung nodule on CTA June TECHNIQUE: Axial imaging performed through the thorax. Coronal and sagittal reformats are submitted. All CT scans at [facility] use at least one of these dose optimization techniques: automated exposure control; mA and/or kV adjustment per patient size (includes targeted exams where dose is matched to clinical indication); or iterative reconstruction. CONTRAST: Omnipaque 350; 100 mL IV. DLP: 674.14 mGy.cm COMPARISON: CT 06/19/2024 Lungs and central airway: Hyperexpanded lungs from emphysema. Numerous bilateral nodules and micronodules are present within both lungs. Previously described nodules in the RIGHT middle lobe are reidentified without increase in size. The largest measures 9 mm. Nodule in the RIGHT lower lobe measures 8 mm and is also unchanged. 5 mm nodule medial RIGHT upper lobe abuts the mediastinal fat. There are additional smaller scattered micronodules. Background of chronic emphysema. No pneumonia. Pleura: Normal. No pleural effusion. Heart and pericardium: Normal size heart with no pericardial effusion. Mediastinum and shivani: No pathologically enlarged lymph nodes. Calcified lymph nodes at the LEFT hilum. Vessels: Very mild atherosclerosis aorta. Normal size pulmonary artery. Scattered coronary artery calcifications. Chest wall and lower neck: No soft tissue masses. Upper abdomen: Bilateral upper pole renal cysts. The largest 3.2 cm on the RIGHT. No adrenal mass. Osseous structures: Scoliosis. No destructive bone lesions. CT/CT chest wo con [id number] IMPRESSION: 1. No change in the RIGHT middle and RIGHT lower lobe pulmonary nodule since . 2. There are additional micronodules and nodules as described above. No prior studies for comparison of all of these nodules. Nodules are on a background of emphysema. Recommend follow-up chest CT in [address] abel ging will be necessary to document stability. 3. No adenopathy. 4. Bilateral upper pole renal cyst.
== END 2024-11-07 09:55 | disposition home or self-care (01) ==
LOC: RAD 09:54
PROVIDERS: PCP Family Medicine; Visit Provider Family Medicine
DX: R91.1 Solitary pulmonary nodule (principal); J43.9 Emphysema, unspecified; N28.1 Cyst of kidney, acquired
CPT/HCPCS: 71250

== ENCOUNTER 2024-12-19 11:54 | Emergency (ER) | payer BC, MEDICAID, SELFPAY ==
[2024-12-19] VITALS (7 sets, daily range): BP systolic 105–127; BP diastolic 78–87; PULSE 88–103; RESP 17–18; TEMP 36.4; O2SAT 90–99
--- OUTSIDE RECORDS SUMMARY | 2024-12-19 11:58 | XMS_ITS | Encounter Summary ---
Author Organization [facility] Address [address] [place] [address] Care Team Providers Care Track Car Operator Name Role Phone Unavailable Primary Care Provider Unavailabl e Reason for Visit * Reason Onset Date Comments Question 12/18/2024 Encounter Details Date Type Department Care Team (Late st Contact Info) Description 12/18/2024 Telephone [facility] Vascular Surgery [place] [address] [place] [address] Ronan Engel MD [address] [place] [address] Question Social History Tobacco Use Types Packs/Day Years Used Date Smoking Tobacco: Every Day Cigarettes Alcohol Use Standard Drinks/Week Comments Not Currently 0 (1 standard drink = 0.6 oz pur e alcohol) Feeling Safe Answer Date Recorded Are you in a relationship wi th someone who hurts you emotionally and/or physically? No 08/12/2024 Food Insecurity Answer Date Recorded Patient needs follow up regardin 08/12/2024 Transportation Needs Answer Date Record ed Patient needs follow up regardin 08/12/2024 Utility Needs Answer Date Recorded Patient needs follow up regardin 08/12/2024 Sex and Gender Information Value Date Recorded Sex Assigned at Not on file Legal Sex Male 12:45 PM CDT Gender Identity Not on file Sexual Orientation Not on file documented as of this encounter Miscellaneous Notes * Telephone Encounter - Daniela Varner RN - 12/18/2024 8:56 AM CDT Pt reports pain that radiates up from his foot to his knee but denies any discoloration, temperature change or nonhealing wounds. Pt states his pcp started him on gabapentin so I recommended reachingout to his pcp first to see if there are any adjustments that can be made for his neuropathy as hissymptoms do not seem vascular in nature at this time. * Telephone Encounter - Annette Hutchinson - 12/18/2024 8:47 AM CDT Toro (Provider) MESSAGE PT states had surgery on Left leg October [address] Engel wanted him to call if he had any issues. PT states he is starting to have pain in left leg now and is hard to walk. PT requests an appointment to come in. Please call. documented in this encounter Plan of Treatment Not on file documented as of this encounter Visit Diagnoses Not on filedocumented in this encounter
--- OUTSIDE RECORDS SUMMARY | 2024-12-19 11:58 | XMS_ITS | Clinical Summary ---
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 5 Active glimepiride (AMARYL) 4 mg tablet Take 1 Tablet by mouth daily. 5 Active furosemide (LASIX) 20 mg tablet Take 20 mg by mouth daily. 5 Active potassium CHLORIDE (MICRO-K EXTENCAPS) 8 mEq Extended Release capsule take 1 capsule BY MOUTH DAILY NEEDED; take with furosemide 5 Active nitroglycerin (NITROSTAT) 0.4 mg Tablet, Sublingual Place 0.4 mg under tongue every 5 minutes as needed for Chest Pain. 5 Active methocarbamoL (ROBAXIN) 500 mg tablet Take 500 mg by mouth 3 times daily as needed. for muscle spasms 5 Active losartan (COZAAR) 25 mg tablet Take 0.5 Tablets by mouth daily. 5 Active gabapentin (NEURONTIN) 300 mg capsule Take 1 Capsule by mouth 3 times daily. 5 Active metoprolol tartrate (LOPRESSOR) 25 mg tablet Take 0.5 Tablets by mouth 2 times daily. 5 Active atorvastatin (LIPITOR) 80 mg tablet Take 1 Tablet by mouth daily. 5 Active spironolactone (ALDACTONE) 25 mg tablet Take 1 Tablet by mouth daily. 5 Active aspirin (BART CHEWABLE) 81 mg Tablet, Chewable chew one tablet by mouth every day 5 Active HYDROcodone-rupali taminophen (NORCO) 5-325 mg tablet TAKE 1/2 TO 1 TABLET BY MOUTH EVERY 8 HOURS NEEDED FOR PAIN 5 Active pentoxifylline (TRENtal) 400 mg Extended Release tablet Take 400 mg by mouth 3 times daily. 5 Active Narcan 4 mg/actuation [place], Non-Aerosol CALL 911. SPR CONTENTS OF ONE SPRAYER (0.1ML) INTO ONE NOSTRIL. REPEAT IN 2-3 MIN IF SYMPTOMS OF OPIOID EMERGENCY PERSIST, ALTERNATE NOSTRILS 5 Active clopidogreL (PLAVIX) 75 mg Tablet Take 1 Tablet (75 mg) by mouth daily. 30 Tablet 08/23/2024 4:57 PM CDT 5 Active Active Problems No known active problems Encounters Date Type Department Care Team Description 12/18/2024 Telephone [facility] Vascular Surgery [address] [id number] Ronan Engel MD Question 10/09/2024 3:30 PM CDT Office Visit [facility] Vascular Surgery [address] [phone] Ronan Engel MD PAD (peripheral artery disease) (Primary Dx) 10/09/2024 2:30 PM CDT Ancillary Procedure [facility]- [address] [id number] Ronan Engel MD PAD (peripheral artery disease) 09/24/2024 External Device Data 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, Abstract from Last 3 Months Social History Tobacco Use Types Packs/Day Years Used Date Smoking Tobacco: Every Day Cigarettes Tobacco Cessation:Ready to Q uit: Not Asked; Counseling Given: Not Answered Alcohol Use Standard Drinks/Week Comments Not Currently [...] on file Sexual Orientation Not on file Last Filed Vital Signs Vital Sign Reading Time Taken Comments Blood Pressure 118/84 10/09/2024 3:22 PM CDT Pulse 86 10/09/2024 3:22 PM CDT Temperature 36 C (96.8 F) 08/23/2024 4:40 PM CDT Respiratory Rate 20 08/23/2024 5:00 PM CDT Oxygen Saturation 97% 10/09/2024 3:22 PM CDT Inhaled Oxygen Concentration - - Weight 122.5 kg (270 lb) 10/09/2024 3:22 PM CDT Height 193 cm (6' 4 ) 10/09/2024 3:22 PM CDT Body Mass Index 32.87 10/09/2024 3:22 PM CDT Plan of Treatment Health Maintenance Due Date Last Done Comments Pre-Diabetes and Diabetes Screening 1970 DTAP/TDAP/TD VACCINES (1 - Tdap) 1989 HEPATITIS B VACCINES (1 of 3 - 19+ 3-dose series) 09/02 COLORECTAL SCREENING 09/29/2015 Colorectal Cancer Screening 09/29/2015 FIT-DNA Q 3 years 09/29/2015 FIT/FOBT Q 1 year 09/29/2015 Flex Sig/CT Colonography Q 5 years 09/29/2015 ZOSTER VACCINE (1 of 2) 2020 INFLUENZA VACCINE (#1) 2024 Medical Devices Implanted Type Area Can Filling Room Sweeper Device Identifier Shelf Expiration Date Model / Serial / Lot Dev Closure Angioseal 6fr [facility] [id number] - [id number] Implanted:Qty: 1 on 08/23/2024 by Ronan Engel MD at [facility] Closure Device Right: Groin TERUMO- CARDIOVASC SYS [id number] 05/10/2025 [id number] / / [id number] Procedures Procedure Name Priority Date/Time Associated Diagnosis Comments US DUPLEX ARTERIAL LEG LEFT Routine 10/09/2024 3:45 PM CDT PAD (peripheral artery disease) from Last 3 Months Results * US DUPLEX ARTERIAL LEG LEFT (10/09/2024 3:45 PM CDT) Anatomical Region Laterality Modality Lower Extremity Ultrasound 10/09/2024 2:54 PM CDT Narrative 10/09/2024 3:47 PM CDT [facility] [address] [place] [id number] Noninvasive Vascular Lab Limited Lower Extremity Arterial Duplex Study Patient: Bennett Millard Study ID: 1 Gender: M : 1970 Age: 54 Room: Height: 193cm Weight: 119.6kg BSA: 2.56m^2 Pt status: Study Date: 10/09/2024 Study Time: 02:54:00 PM BSA: 2.56m^2 Ordering: Ronan Engel Interpreting:Ronan Engel Pump Installation And Servicer: Amrita Romano Indications: 6 weeks post angio. Summary Impression: 1. Patent left femoral artery stent. 2. Mild to moderate atherosclerosis visualized throughout extremity. 3. No arterial insufficiency at rest in bilateral extremities. Study data: Limited lower extremity arterial duplex study. Ankle-brachial index. Height: 193cm. Height: 76in. Weight: 119.6kg. Weight: 263.6lb. BMI: 32.1kg/m^2. BSA: 2.56m^2. Procedure: A vascular evaluation was performed with the patient in the supine position. Imaged vessel(s): the left common femoral, left deep femoral, left femoral, left popliteal, left anterior tibial, left posterior tibial, and left dorsal pedal arteries. Presentation case quality. Arterial flow: - Left common femoral: Left common femoral 1.36m/sec Triphasic - Left deep femoral: Left deep femoral 1.33m/sec Triphasic - Left femoral proximal: Left femoral proximal 0.7m/sec Triphasic - Left femoral mid: Left femoral mid 0.93m/sec Triphasic - Left femoral distal: Left femoral distal 0.66m/sec Triphasic - Left popliteal proximal: Left popliteal proximal 0.63m/sec Triphasic - Left anterior tibial distal: Left anterior tibial distal 0.22m/sec Monophasic - Left posterior tibial proximal: Left posterior tibial proximal 0.48m/sec Triphasic - Left posterior tibial distal: Left posterior tibial distal 0.12m/sec Biphasic - Left peroneal proximal: Left peroneal proximal 0.32m/sec Triphasic - Left peroneal distal: Left peroneal distal No apparent waveform Photoplethysmography: - R 1st toe Severely dampened Tbi .73. - R 2nd toe Severely dampened - R 3rd toe Moderately dampened - R 4th toe Moderately dampened - R 5th toe Mildly dampened - L 1st toe Moderately dampened Tbi .77. - L 2nd toe Mildly dampened - L 3rd toe Mildly dampened - L 4th toe Mildly dampened - L 5th toe Moderately dampened Ankle brachial indices Baseline Baseline Rt PT: 124mm Hg Rt DP: 93mm Hg Rt PT: 1.12 Rt DP: 0.84 Lt PT: 98mm Hg Lt DP: 105mm Hg Lt PT: 0.88 Lt DP: 0.95 Brachial pressures: - Rt brachial pressure (sys): 111mm Hg - Lt brachial pressure (sys): 105mm Hg - Max brachial pressure (sys): 111mm Hg [facility] is accredited with the [employer] Commission for the Accreditation of Vascular Laboratories (ICAVL) Prepared and Electronically Authenticated Ronan Engel Confirmed 10/09/2024 15:47 Procedure Note Ronan Engel MD - 10/09/2024 [facility] [address] [place] [address] Noninvasive Vascular Lab Limited Lower Extremity Arterial Duplex Study Patient: Bennett Millard Study ID: 1 Gender: M : 1970 Age: 54 Room: Height: 193cm Weight: 119.6kg BSA: 2.56m^2 Pt status: Study Date: 10/09/2024 Study Time: 02:54:00 PM BSA: 2.56m^2 Ordering: Ronan Engel Interpreting:Ronan Engel Pump Installation And Servicer: Amrita Romano Indications: 6 weeks post angio. Summary Impression: 1. Patent left femoral artery stent. 2. Mild to moderate atherosclerosis visualized throughout extremity. 3. No arterial insufficiency at rest in bilateral extremities. Study data: Limited lower extremity arterial duplex study.Ankle-brachial index. Height: 193cm. Height: 76in. Weight: 119.6kg. Weight:263.6lb. BMI: 32.1kg/m^2. BSA: 2.56m^2. Procedure: A vascular evaluationwas performed with the patient in the supine position. Imaged vessel(s): theleft common femoral, left deep femoral, left femoral, left popliteal, leftanterior tibial, left posterior tibial, and left dorsal pedal arteries.Presentation case quality. Arterial flow: - Left common femoral: Left common femoral 1.36m/sec Triphasic - Left deep femoral: Left deep femoral 1.33m/sec Triphasic - Left femoral proximal: Left femoral proximal 0.7m/sec Triphasic - Left femoral mid: Left femoral mid 0.93m/sec Triphasic - Left femoral distal: Left femoral distal 0.66m/sec Triphasic - Left popliteal proximal: Left popliteal proximal 0.63m/sec Triphasic - Left anterior tibial distal: Left anterior tibial distal 0.22m/sec Monophasic - Left posterior tibial proximal: Left posterior tibial proximal0.48m/sec Triphasic - Left posterior tibial distal: Left posterior tibial distal 0.12m/sec Biphasic - Left peroneal proximal: Left peroneal proximal 0.32m/sec Triphasic - Left peroneal distal: Left peroneal distal No apparent waveform Photoplethysmography: - R 1st toe Severely dampened Tbi .73. - R 2nd toe Severely dampened - R 3rd toe Moderately dampened - R 4th toe Moderately dampened - R 5th toe Mildly dampened - L 1st toe Moderately dampened Tbi .77. - L 2nd toe Mildly dampened - L 3rd toe Mildly dampened - L 4th toe Mildly dampened - L 5th toe Moderately dampened Ankle brachial indices Baseline Baseline Rt PT: 124mm Hg Rt DP:93mm Hg Rt PT: 1.12 Rt DP: 0.84 Lt PT: 98mm Hg Lt DP: 105mm Hg Lt PT: 0.88 Lt DP:0.95 Brachial pressures: - Rt brachial pressure (sys): 111mm Hg - Lt brachial pressure (sys): 105mm Hg - Max brachial pressure (sys): 111mm Hg [facility] is accredited withthe [facility] Commission for the Accreditation of Vascular Laboratories (ICAVL) Prepared and Electronically Authenticated Ronan Engel Confirmed 10/09/2024 15:47 Ronan Engel MD ORDERABLES Final Result from Last 3 Months Insurance [facility] MEDICAID RX INFOCROSSING Medicaid DISABILITY DETERMINATION
--- NOTE | 2024-12-19 13:27 | USR_ITS ---
PROCEDURE INFORMATION: Exam: US Duplex Left Lower Extremity Arteries Or Arterial Bypass Grafts Exam date and time: 12/19/2024 2:36 PM Age: 54 years old Clinical indication: Pain; Leg, lower; Left; Prior surgery; Surgery date: 6+ months; Surgery type: Vascular; Additional info: Lle pain, HX pad with stent TECHNIQUE: Imaging protocol: Left Real-time duplex scan of the arteries or arterial bypass grafts of the left lower extremity with 2-D richard scale, color Doppler flow and spectral waveform analysis. Images documented and saved. COMPARISON: CT angio abd aorta runof [id number] 06/19/2024 4:00 PM FINDINGS: Left common femoral artery: No occlusion or significant stenosis. Normal waveform. Left superficial femoral artery: No occlusion or significant stenosis. Normal waveform. A stent is present. Left popliteal artery: No occlusion or significant stenosis. Possible stent present. Normal waveform. Left calf/foot arteries: No occlusion or significant stenosis in the visualized arteries. Monophasic waveforms the left posterior tibial.. Dorsalis pedis artery is patent. Monophasic waveform. US/[place] [id number] IMPRESSION: Patent SFA stent. If a popliteal stent is present it is patent as well.
--- NOTE | 2024-12-19 13:27 | USCV_ITS ---
Bennett Millard Age: 54 Gender: M : 1970 Exam Date: 12/19/2024 14:29 Ordering Phys: Aidan Johnson MD Technologist: Exam Location: [facility] Indication: lt leg pain art disease PROCEDURES: Venous duplex imaging was performed in only the left lower extremity. The following venous structures were evaluated: common femoral vein, profunda vein, proximal portion of the greater saphenous vein, superficial femoral vein, and the popliteal vein. In addition, the posterior tibial and peroneal trunk were evaluated. FINDINGS: Normal 2-D Doppler and augmentation and compressibility throughout the lower extremity venous structures. Additional imaging through the proximal calf veins also reveals no thrombus. Limited evaluation of the greater saphenous vein is patent with no thrombus. CONCLUSIONS No DVT left lower extremity. Dr. Padmini Cerda DO (Electronically Signed) Final Date: 19 December 2024 15:18 S
[2024-12-19] MEDS: oxyCODONE-APAP 5-325 mg Tablet 1 TAB PO (13:39)
[2024-12-19 13:42] LABS: Hematocrit 49.8 % (37-53); Hemoglobin 16.30 g/dL (11.27-16.99); Mean Corpuscular HGB Conc 32.7 g/dL (30-55); Mean Corpuscular Hemoglobin 27.7 pg (27-33); Mean Corpuscular Volume 84.7 fl (82-101); Nucleated Red Blood Cells % 0 %; Platelet Count 1033 10^3/cmm (157-399); Red Blood Count 5.88 10^6/uL (3.85-5.65); White Blood Count 21.40 10^3/uL (3.29-11.43)
--- NOTE | 2024-12-19 13:58 | W.ED.EXTPRO ---
HPI - Extremity Problem General: Chief complaint: Extremity Problem,Nontraumatic Stated complaint: lt leg inj Time Seen by Provider: 12/19/24 12:51 History of Present Illness: Patient presenting to the emergency department with approximately 2-day history of constant left leg pain, reports that it radiates from the foot up to the knee, pain is present at rest or with weightbearing/exertion, he denies any numbness, he denies any swelling, he denies any falls or trauma, he has an extensive history of vascular issues with peripheral arterial disease requiring emergency surgery and stenting in the past, he follows with vascular surgery at [facility] in [place], he had spoken to his vascular surgeon a couple days ago about the symptoms and was recommended to get ultrasounds performed, he reached out to his PCP but was leaving for vacation and unable to see him for couple weeks so came to the ER. Denies any fevers or chills Related Data Previous Rx's ?Medication ?Instructions ?Recorded losartan 25 mg tablet 12.5 mg (1/2 x 25 mg) PO DAILY #30 01/25/24 tabs metoprolol tartrate 25 mg tablet 12.5 mg (1/2 x 25 mg) PO BID #60 01/25/24 tabs nitroglycerin 0.4 mg sublingual 0.4 mg sublingual Q5M PRN chest 03/14/24 tablet pain 30 days #30 tabs aspirin 81 mg chewable tablet 81 mg PO DAILY #30 tabs 05/31/24 apixaban 5 mg tablet (Eliquis) See Rx Instructions .Route 07/26/24 .COMPLEX #60 tabs atorvastatin 80 mg tablet See Rx Instructions .Route 07/26/24 .COMPLEX #30 tabs spironolactone 25 mg tablet See Rx Instructions .Route 07/26/24 .COMPLEX #30 tabs methocarbamol 500 mg tablet 500 mg PO TID PRN muscle spasm #90 08/23/24 tabs glimepiride 4 mg tablet 4 mg PO DAILY #90 tabs 09/19/24 blood sugar diagnostic (OneTouch #100 ea 10/31/24 Ultra Test strips) blood-glucose meter #1 ea 10/31/24 dulaglutide 0.75 mg/0.5 mL 0.75 mg (0.5 mL) SUBCUT .qwk #1 mL 10/31/24 subcutaneous pen injector (Trulicity) lancets 33 gauge (OneTouch Delica #100 ea 10/31/24 Plus Lancet) furosemide 20 mg tablet See Rx Instructions .Route 11/11/24 .COMPLEX #30 tabs gabapentin 300 mg capsule 600 mg (2 x 300 mg) PO TID #180 12/08/24 caps pentoxifylline 400 mg 400 mg PO TID #90 tabs 12/18/24 tablet,extended release doxycycline hyclate 100 mg capsule 100 mg PO BID 10 days #20 caps 12/19/24 pregabalin 75 mg capsule (Lyrica) 75 mg PO Q12H PRN pain 3 days #6 12/19/24 caps Allergies Allergy/AdvReac Type Severity Reaction Status Date / Time No Known Allergies Allergy Verified 12/19/24 11:59 COUNTS INCLUDE 234 BEDS AT THE [facility] ED PFS: Medical History Lung nodule seen on imaging study CT done 8.10.25--need to repeat 6 months Hypertension, essential Arterial insufficiency of lower extremity Left lower leg--CTA abnormal 06.19.24--now seeing [facility] vascular surgeon Family hx of prostate cancer Uncontrolled type 2 diabetes mellitus with insulin therapy Nicotine dependence, cigarettes, uncomplicated had CT in October 2023 in [place] CAD (coronary artery disease) hx of [place] in past (he didn't realize it, testing shows it) Cardiomyopathy EF 21% October 2023; EF 38% on ECHO done in [place] 02.02.24; .25 46% 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 Engel at [facility]: L lower leg angiogram with balloon angioplasty Hx of cardiac cath 10.16.23 [facility]: CAD of LAD and RCA Hx of fasciotomy left lower leg--had 4 compartment fasciotomy for compartment syndrome after arterial thromboembolism 10/24 History of thrombectomy L leg intra-arterial thrombolysis, thromboendarterectomy w/ L SFA stenting Family History Father Hypertension Heart disease Prostate cancer Renal cancer Mother Lung disease Hypertension Brother CAD (coronary artery disease) Chronic kidney disease (CKD) Social History Smoking and tobacco/nicotine status: current every day tobacco/nicotine user cigarettes Packs smoked per day: 1 [ Other cigarette details: now 06/04ppd 04.25.24] Alcohol intake: former Year of sobriety/quit date alcohol: 2020 Substance/Drug Use: never Household members: family Housing: Other Details: currently living with sister and her Marital status: Number of children: 0 Highest education level completed: 10th Grade Current occupational status: unemployed 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 Physical Exam Narrative: EXAM NARRATIVE: Gen: A&Ox4, no acute distress, nontoxic appearing HEENT: Normocephalic, atraumatic, no scleral icterus, external ears normal, moist mucous membranes Neck: Supple, full range of motion, no observable masses Lungs: No Respiratory distress, Lungs clear to auscultation bilaterally no rales, rhonchi, wheezing CV: Regular rate and rhythm, no murmur, no pitting edema to lower extremities bilaterally Abdomen: Soft, nondistended, nontender to palpation MSK: No joint swelling, FROM all 4 extremities, the left lower extremity has no significant pitting edema, there is a positive strong biphasic dorsalis pedis pulse by Doppler and palpable, there is a weaker dopplerable posterior tibialis pulse that is symmetric to the contralateral leg which has weak dopplerable pulses to both DP and PT in the right lower extremity, there is a palpable and dopplerable popliteal pulse to the left lower extremity, there is medial and lateral calf surgical incisions clean dry and intact, there is no warmth, there is no erythema, there is no obvious deformity or ulcerations, there is some minor areas of patchy redness to the posterior medial lower leg a few centimeters superior to and posterior to the medial malleolus that is mildly tender to touch Skin: No rashes, petechiae, lesions. Normal color per patient. Neuro: Alert and oriented, no slurred speech, sensation and strength grossly intact all 4 extremities Psych: Appropriate for situation. Course Reevaluation(s): Reevaluation #1: Patient reassessed at this time, he was sleeping comfortably, the redness on the lower part of his leg does not appear to be extending or any different than on my initial evaluation, he has no crepitus to exam, his workup shows negative DVT and arterial duplex studies, at this time given the unexplained leukocytosis and acute onset pain we will treat as a possible cellulitis given the new rash although peripheral neuropathy is an alternative consideration. Will trial a 3-day course of Lyrica, doxycycline here in the ED and then at home x 7 days twice daily, follow-up with PCP and vascular surgery in the outpatient setting. Return precautions for any progressively worsening rash or pain, fevers, worsening pain to the leg inability to ambulate color changes or temperature changes to the leg, numbness or weakness, or any other concerns Time: 15:25 Vital Signs: Vital signs: Vital Signs Temperature 97.6 F 12/19/24 11:55 Pulse Rate 103 H 12/19/24 11:55 Respiratory Rate 17 12/19/24 13:39 Blood Pressure 107/78 12/19/24 14:35 Pulse Oximetry 94 12/19/24 14:35 Oxygen Delivery Me thod Room Air 12/19/24 14:35 MDM - Extremity (Nontraumatic) Medical Decision Making 54-year-old male history of PAD, status post what sounds like possible embolectomy and stent placement for acute limb ischemia in the past follows with vascular surgery in [facility], history of hypertension and fdl-qrpekmw-wqarhynzc diabetes, history of hyperlipidemia, history of CAD, on blood thinners aspirin and Eliquis with compliance, presenting with 2-day history of resting left lower extremity pain from the knee down, on exam the foot is warm and well-perfused, there are dopplerable pulses to the DP PT and popliteal regions, there is a couple patchy areas of erythema to the medial lower leg of unclear significance although does not appear to clinically entirely consistent with cellulitis although possibly early infectious, plan for arterial and venous ultrasounds, labs, reassess for disposition. Lab Data Workup significant for leukocytosis and thrombocytosis, no anemia, mild acidosis, normal kidney function, mild hyperglycemia 173, review of old blood work shows episodes of leukocytosis as well but he is not chronically leukocytotic, he does have a history of significant thrombocytosis in the past and I do not see history of a diagnosis related to this in his chart 12/19/24 13:36 12/19/24 13:36 Radiology Impressions Duplex Scan Lower Extremity Artery 12/19/24 13:27 IMPRESSION: Patent SFA stent. If a popliteal stent is present it is patent as well. Laboratory Results WBC 21.40 10^3/uL (3.29-11.43) H 12/19/24 13:36 RBC 5.88 10^6/uL (3.85-5.65) H 12/19/24 13:36 Hgb 16.30 g/dL (11.27-16.99) 12/19/24 13:36 Hct 49.8 % (37-53) 12/19/24 13:36 MCV 84.7 fl (82-101) 12/19/24 13:36 MCH 27.7 pg (27-33) 12/19/24 13:36 MCHC 32.7 g/dL (30-55) 12/19/24 13:36 RDW 14.9 % (12.1-15.1) 12/19/24 13:36 Plt Count 1033 10^3/cmm (157-399) H 12/19/24 13:36 MPV 9.0 fL (7.4-10.4) 12/19/24 13:36 Neut % (Auto) 75.7 % 12/19/24 13:36 Lymph % (Auto) 16.3 % 12/19/24 13:36 Reynolds % (Auto) 5.4 % 12/19/24 13:36 Eos % (Auto) 1.5 % 12/19/24 13:36 Baso % (Auto) 0.5 % 12/19/24 13:36 Neut # (Auto) 16.22 10^3/uL (1.8-7.7) H 12/19/24 13:36 Lymph # (Auto) 3.5 10^3/uL (0.8-4.8) 12/19/24 13:36 Reynolds # (Auto) 1.2 10^3/uL (0.2-0.9) H 12/19/24 13:36 Eos # (Auto) 0.3 10^3/uL (0.0-0.8) 12/19/24 13:36 Baso # (Auto) 0.1 10^3/uL (0.0-0.1) 12/19/24 13:36 Nucleated RBC % (auto) 0 % 12/19/24 13:36 Nucleated RBCs # 0.0 /100WBC 12/19/24 13:36 PT 14.30 SECONDS (12.1-14.9) 12/19/24 13:36 INR 1.04 (0.8-1.2) 12/19/24 13:36 APTT 32.4 SECONDS (23.9-36.7) 12/19/24 13:36 Sodium 137 mmol/L (136-145) 12/19/24 13:36 Potassium 4.0 mmol/L (3.5-5.1) 12/19/24 13:36 Chloride 101 mmol/L (98-107) 12/19/24 13:36 Carbon Dioxide 20 mmol/L (22-29) L 12/19/24 13:36 Anion Gap 20.0 (5-19) H 12/19/24 13:36 BUN 23 mg/dL (6-20) H 12/19/24 13:36 Creatinine 0.7 mg/dL (0.7-1.2) 12/19/24 13:36 GFR Calculation 117.5 mL/min (90-130) 12/19/24 13:36 Glucose 173 mg/dL (65-115) H 12/19/24 13:36 Calculated Osmolality 292 mOsm/kg (285-295) 12/19/24 13:36 Calcium 9.3 mg/dL (8.5-10.5) 12/19/24 13:36 All radiology interpretation(s) finalized by discharge ED provider radiology interpretation(s): Arterial ultrasound with no acute limb ischemia, there is patent stents and positive waveforms to the DP and PT region DVT study negative for DVT to the left lower extremity Discharge Plan Discharge Patient Disposition: Home Clinical Impression: Acute pain of left lower extremity, Leukocytosis, Thrombocytosis Condition: Stable Prescriptions: New pregabalin [Lyrica] 75 mg capsule 75 mg PO Q12H PRN (Reason: pain) 3 Days Qty: 6 0RF doxycycline hyclate 100 mg capsule 100 mg PO BID 10 Days Qty: 20 0RF No Action losartan 25 mg tablet 12.5 mg PO DAILY Qty: 30 5RF metoprolol tartrate 25 mg tablet 12.5 mg PO BID Qty: 60 5RF nitroglycerin 0.4 mg tablet, sublingual 0.4 mg sublingual Q5M PRN (Reason: chest pain) 30 Days Qty: 30 3RF Rx Instructions: until response; do not exceed 3 doses per episode (DME) OneTouch Ultra Test Strip See Rx Instructions .Route Qty: 100 3RF Rx Instructions: As directed (DME) blood-glucose meter Kit See Rx Instructions .Route Qty: 1 0RF Rx Instructions: As directed; ONe Touch (DME) lancets [OneTouch Delica Plus Lancet] 33 gauge misc See Rx Instructions .Route Qty: 100 3RF Rx Instructions: As directed Trulicity 0.75 mg/0.5 mL pen injector 0.75 mg SUBCUT .qwk Qty: 1 3RF aspirin 81 mg tablet,chewable 81 mg PO DAILY Qty: 30 5RF atorvastatin 80 mg tablet See Rx Instructions .ROUTE .COMPLEX Qty: 30 5RF Dose Instruction: TAKE 1 TABLET BY MOUTH EVERY DAY Rx Instructions: TAKE 1 TABLET BY MOUTH EVERY DAY spironolactone 25 mg tablet See Rx Instructions .ROUTE .COMPLEX Qty: 30 5RF Dose Instruction: TAKE 1 TABLET BY MOUTH EVERY DAY Rx Instructions: TAKE 1 TABLET BY MOUTH EVERY DAY Eliquis 5 mg tablet See Rx Instructions .ROUTE .COMPLEX Qty: 60 5RF Dose Instruction: TAKE 1 TABLET BY MOUTH TWICE DAILY Rx Instructions: TAKE 1 TABLET BY MOUTH TWICE DAILY methocarbamol 500 mg tablet 500 mg PO TID PRN (Reason: muscle spasm) Qty: 90 5RF glimepiride 4 mg tablet 4 mg PO DAILY Qty: 90 0RF furosemide 20 mg tablet See Rx Instructions .ROUTE .COMPLEX Qty: 30 3RF Dose Instruction: TAKE 1 TABLET BY MOUTH DAILY as needed for fluid retention Rx Instructions: TAKE 1 TABLET BY MOUTH DAILY as needed for fluid retention gabapentin 300 mg capsule 600 mg PO TID Qty: 180 1RF pentoxifylline 400 mg tablet extended release 400 mg PO TID Qty: 90 4RF Rx Instructions: must administer with a meal/food Discharge Orders: Discharge ED (Routine); Ordered 12/19/24 Ordered By: Aidan Johnson Referrals: Chayo Gomez MD [Primary Care Provider, Family Practice] Patient Instructions: Patient Portal & Stacey Instructions, Leg Pain (ED), Pregabalin (By mouth) Activity Restrictions/Additional Instructions: You were seen in the emergency department for acute onset of left-sided leg pain x 2 days, your ultrasound shows no blockages in your arteries or blood clots in your veins, your blood work did show an elevation in white and your white blood cell count as well as an elevation in your platelet count, the elevation in your platelet count appears chronic but I do recommend you follow-up both of these results with your primary care doctor to discuss alternative management strategies, I also recommend that you discuss your pain management regimen with your doctor for your neuropathy as well. Follow-up with your vascular surgeon regarding your leg pain and vascular issues. Return to the ED for any progressively worsening rash or pain, fevers, worsening pain to the leg inability to ambulate color changes or temperature changes to the leg, numbness or weakness, or any other concerns Print Language: Niuean Coding Level of Care Code ED Bag Machine Adjuster for Zarina Hernandez
[2024-12-19 13:59] LABS: INR 1.04 (0.8-1.2); Partial Thromboplastin Time 32.4 SECONDS (23.9-36.7); Prothrombin Time 14.30 SECONDS (12.1-14.9)
[2024-12-19 14:07] LABS: Anion Gap 20.0 (5-19); Blood Urea Nitrogen 23 mg/dL (6-20); Calcium 9.3 mg/dL (8.5-10.5); Carbon Dioxide 20 mmol/L (22-29); Chloride 101 mmol/L (98-107); Creatinine Clr Calc Pharmacy 172.4573; Glucose 173 mg/dL (65-115); Osmolality Calculated 292 mOsm/kg (285-295); Potassium 4.0 mmol/L (3.5-5.1); Sodium 137 mmol/L (136-145)
== END 2024-12-19 15:38 | disposition home or self-care (01) ==
PROVIDERS: Emergency Provider Student in an Organized Health Care Education/Training Program; PCP Family Medicine
DX: M79.605 Pain in left leg (principal); D72.829 Elevated white blood cell count, unspecified; D75.839 Thrombocytosis, unspecified; Z79.82 Long term (current) use of aspirin; Z79.85 Long-term (current) use of injectable non-insulin antidiabetic drugs; Z79.01 Long term (current) use of anticoagulants; F17.210 Nicotine dependence, cigarettes, uncomplicated; I25.10 Atherosclerotic heart disease of native coronary artery without angina pectoris; E11.49 Type 2 diabetes mellitus with other diabetic neurological complication; I10 Essential (primary) hypertension
CPT/HCPCS: 36415; 80048; 85025; 85610; 85730; 93926; 93971; 99284; J9999

== ENCOUNTER 2025-01-03 19:35 | Inpatient (IN) | payer BC, SELFPAY ==
[2025-01-03] VITALS (7 sets, daily range): BP systolic 101–118; BP diastolic 73–88; PULSE 75–93; RESP 10–18; O2SAT 93–98
--- OUTSIDE RECORDS SUMMARY | 2025-01-03 19:38 | XMS_ITS | Clinical Summary ---
Author Organization [facility] field Address [address] [place] [address] Phone Care Team Providers Care Recreational Specialist Name Role Phone Unavailable Primary Care Provider [...] times daily. 5 Active Narcan 4 mg/actuation Williams, Non-Aerosol CALL 911. SPR CONTENTS OF ONE SPRAYER (0.1ML) INTO ONE NOSTRIL. REPEAT IN 2-3 MIN IF SYMPTOMS OF OPIOID EMERGENCY PERSIST, ALTERNATE NOSTRILS 5 Active clopidogreL (PLAVIX) 75 mg Tablet Take 1 Tablet (75 mg) by mouth daily. 30 Tablet 08/23/2024 4:57 PM CDT 5 Active Active Problems No known active problems Encounters Date Type Department Care Team Description 12/18/2024 Telephone [facility] Vascular Surgery [address] [phone] Ronan Engel MD Question 10/09/2024 3:30 PM CDT Office Visit [facility] Vascular Surgery [address] [phone] Ronan Engel MD PAD (peripheral artery disease) (Primary Dx) 10/09/2024 2:30 PM CDT Ancillary Procedure [facility]- [address] [phone] Ronan Engel MD PAD (peripheral artery disease) from Last 3 Months Social History Tobacco [...] (#1) 2024 Medical Devices Implanted Type Area Process Artist Device Identifier Shelf Expiration Date Model / Serial / Lot Dev Closure Angioseal 6fr Vip [id number] - [id number] Implanted:Qty: 1 on 08/23/2024 by Ronan Engel MD at [facility] Closure Device Right: Groin TERUMO- CARDIOVASC SYS [id number] 05/10/2025 [id number] / / [id number] Procedures Procedure Name Priority Date/Time Associated Diagnosis Comments US DUPLEX ARTERIAL LEG LEFT Routine 10/09/2024 3:45 PM CDT PAD (peripheral artery disease) from Last 3 Months Results * US DUPLEX ARTERIAL LEG LEFT (10/09/2024 3:45 PM CDT) Anatomical Region Laterality Modality Lower Extremity Ultrasound 10/09/2024 2:54 PM CDT Narrative 10/09/2024 3:[address] [facility] [address] [place] [id number] Noninvasive Vascular Lab Limited Lower Extremity Arterial Duplex Study Patient: Bennett Millard Study ID: [id number] Gender: M : 1970 Age: 54 Room: Height: 193cm Weight: 119.6kg BSA: 2.56m^2 Pt status: Study Date: 10/09/2024 Study Time: 02:54:00 PM BSA: 2.56m^2 Ordering: Ronan Engel Interpreting:Ronan Engel Newspaper Copy Editor: Amrita Romano Indications: 6 weeks post angio. [...] - Max brachial pressure (sys): 111mm Hg [facility] is accredited with the Intersocietal Commission for the Accreditation of Vascular Laboratories (ICAVL) Prepared and Electronically Authenticated Ronan Engel Confirmed 10/09/2024 15:47 Procedure Note Ronan Engel MD - 10/09/2024 [facility] [address] [place] [id number] Noninvasive Vascular Lab Limited Lower Extremity Arterial Duplex Study Patient: Bennett Millard Study ID: [id number] Gender: M : 1970 Age: 54 Room: Height: 193cm Weight: 119.6kg BSA: 2.56m^2 Pt status: Study Date: 10/09/2024 Study Time: 02:54:00 PM BSA: 2.56m^2 Ordering: Ronan Engel Interpreting:Ronan Engel Newspaper Copy Editor: Amrita Romano Indications: 6 weeks post angio. [...] - Max brachial pressure (sys): 111mm Hg [facility] is accredited withthe Intersocietal Commission for the Accreditation of Vascular Laboratories (ICAVL) Prepared and Electronically Authenticated Ronan Engel 10/09/2024 15:47 Ronan Engel MD ORDERABLES Final Result from Last 3 Months Insurance [facility] MEDICAID RX INFOCROSSING Medicaid DISABILITY DETERMINATION [place] [address]
--- OUTSIDE RECORDS SUMMARY | 2025-01-03 19:38 | XMS_ITS | Patient Health Record ---
Author Organization [facility] Address [address] [place] [address] [id number] [id number] Care Team Providers Care Manager Landscape Name Role Phone Manager PrivacyValerieWayne Primary Care Provider Reason For Referral No Information Medications Medication SIG (Take, Route, Frequency, Duration) Notes Start Date End Date Status metFORMIN 1000 mg tablet 1 tab(s) orally 2 times a day; Duration: 30 days Active metoprolol 25 mg tablet 1 tab(s) orally once a day; Duration: 30 day(s) Active Clindamycin Hydrochloride 300 mg capsule 1 cap(s) orally TID; Duration: 10 day(s) Active lisinopril 20 mg tablet 1 tab(s) orally twice a day; Duration: 30 day(s) Active simvastatin 40 mg tablet 1 tab(s) orally once a day (at bedtime); Duration: 30 day(s) Active Farxiga 10 mg tablet 1 tab(s) orally onc e a day SAMPLES GIVEN; Duration: 30 day(s) 01/08/2020 Active Social History Tobacco Use: Social History Observation Description Date Details (start date - stop date) Current Smoker NA - NA Social History General Social Info Question Answer Notes SO/GI Sexual Orientation Straight Gender Identity Male Exercise: Are you physically Active? No Self Management Does Patient require assistance with any activities of daily living? No Mammogram Have you had a Mammogram? No Drug use: TYPE pt denies Colonoscopy: Colonoscopy No Influenza Vaccination: Have you had a flu shot? NO Tobacco Use: Additional Findings: Tobacco User Heavy cigarette smoker (20-39 cigs/day) DO YOU CURRENTLY USE TOBACCO PRODUCTS? current s moker HOW LONG HAVE YOU USED TOBACCO PRODUCTS? 15 OR M ORE YEARS Additional Details Category Social Info Options Details General Occupation: Unemployed at t he moment Travel ouside [place]: no Alcohol: no socially occ Home smoke detector use: yes Caffeine: yes frequency: 2 cup s coffee tea later Marital Status: single Household Status Lives in home Problems Problem Type SNOMED Code ICD Code Onset Dates Problem Status W/U Status Risk Notes Problem Mixed hyperlipidemia (890243060) Mixed hyperlipidemia (E78.2) Active confirmed Problem Tobacco use (147458523) Tobacco use (Z72.0) Active confirmed Problem Essential hypertension (00171926) Essential hypertension (I10) Active confirmed Problem Body mass index 40+ - morbidly obese (715057218) BMI 40.0-44.9, adult (Z68.41) Active confirmed Problem Type II diabetes mellitus without complication (475055492) Type 2 diabetes mellitus without complication, without long-term current use of insulin (E11.9) Active confirmed Plan Of Treatment No Information Insurance Providers Payer Name Payer Address Payer Phone Subscriber Number Group Number Insured Name Patient Relationship to Insured Coverage Start Date Coverage End Date [facility] [address] [facility] [address] [place] [address] [phone] [id number] YULIANA CABRERA Self - patient is the insured Medical (General) History Medical History History ICD Code hypertension Hypercholesterolemia NIDDM Surgical History Surgery Date(Month/Year)
--- NOTE | 2025-01-03 19:40 | ECG_ITS ---
[employer] Test Date: 2025-01-03 Pat Name: Bennett Millard Department: Room: Gender: Male [employer] Maintainer: : 1970 Requested By: Sahwn Guajardo Order Number: [id number] Oneal MD: Praveena Bustos M.D. Measurements Intervals [place] Rate: 91 P: 35 ID: [id number] QRS: -48 QRSD: 111 T: 82 QT: 372 QTc: 459 Interpretive Statements SINUS RHYTHM WITH OCCASIONAL VENTRICULAR PREMATURE COMPLEXES POSSIBLE LEFT ATRIAL ENLARGEMENT [-0.1mV P-WAVE IN V1/V2] LOW QRS VOLTAGE IN PRECORDIAL LEADS [QRS DEFLECTION < 1.0 mV IN CHEST LEADS] LEFT ANTERIOR FASCICULAR BLOCK [QRS AXIS <= -45, QR IN I, RS IN II] ANTEROSEPTAL MYOCARDIAL INFARCTION , OF INDETERMINATE AGE [40+ ms Q WAVE IN V1-V4] Non Specific ST-T changes Compared to ECG 03/14/2024 15:55:20 Ventricular premature complex(es) now present Myocardial infarct finding still present Electronically Signed On 01-03-2025 23:09:33 CDT by Praveena Bustos M.D. [id number]
--- NOTE | 2025-01-03 19:56 | XRR_ITS ---
PROCEDURE INFORMATION: Exam: XR Chest Exam date and time: 01/03/2025 8:09 PM Age: 54 years old Clinical indication: Pain; Chest pressure; Prior surgery; Surgery date: 6+ months; Surgery type: Cardiac cath; Additional info: Cp TECHNIQUE: Imaging protocol: Radiologic exam of the chest. Views: 1 view. COMPARISON: CT chest con [id number] 11/07/2024 10:13 AM FINDINGS: Lungs: Right lower lobe 9.6 mm pulmonary nodule more prominent compared to prior exam, dedicated chest CT could further evaluate this. Emphysematous changes. Pleural spaces: Unremarkable. No pleural effusion. No pneumothorax. Heart/Mediastinum: Borderline cardiomegaly. Bones/joints: Unremarkable. XR/XR chest 1V portable [id number] IMPRESSION: 1. Right lower lobe 9.6 mm pulmonary nodule more prominent compared to prior exam, dedicated chest CT could further evaluate this. 2. Emphysematous changes. 3. Borderline cardiomegaly.
[2025-01-03] MEDS: ondansetron 2 mg/ML SDV 2 mL 4 MG IVP (20:26)
[2025-01-03] MEDS: morphine 4 mg/mL SDV 1 mL IVP (20:27)
[2025-01-03] MEDS: nitroglycerin 1 gm/inch oint Pkt 1 INCH TOPICAL (20:27)
[2025-01-03 20:39] LABS: Troponin(5th) Baseline 69 ng/L (0-15)
[2025-01-03 20:42] LABS: Hematocrit 51.3 % (37-53); Hemoglobin 16.80 g/dL (11.27-16.99); Mean Corpuscular HGB Conc 32.7 g/dL (30-55); Mean Corpuscular Hemoglobin 27.8 pg (27-33); Mean Corpuscular Volume 84.9 fl (82-101); Nucleated Red Blood Cells % 0 %; Platelet Count 1048 10^3/cmm (157-399); Red Blood Count 6.04 10^6/uL (3.85-5.65); White Blood Count 16.99 10^3/uL (3.29-11.43)
[2025-01-03 20:49] LABS: Alanine Aminotransferase 50 U/L (0-41); Albumin Level 4.4 g/dL (3.5-5.2); Alkaline Phosphatase 100 U/L (40-130); Anion Gap 19.1 (5-19); Aspartate Amino Transferase 35 U/L (0-40); Blood Urea Nitrogen 15 mg/dL (6-20); Calcium 9.8 mg/dL (8.5-10.5); Carbon Dioxide 22 mmol/L (22-29); Chloride 99 mmol/L (98-107); Creatinine Clr Calc Pharmacy 134.1335; Globulin 3.1 g/dL (1.3-4.6); Glucose 136 mg/dL (65-115); NT Pro B Type Natriuretic Pept 697 pg/mL (0-125); Osmolality Calculated 285 mOsm/kg (285-295); Potassium 4.1 mmol/L (3.5-5.1); Sodium 136 mmol/L (136-145); Total Protein 7.5 g/dL (6.6-8.7)
--- NOTE | 2025-01-03 21:11 | ED_ITS ---
HPI - Chest Pain 2 General: Chief Complaint: Chest Pain Stated Complaint: CP SOb right arm pain Time Seen by Provider: 01/03/25 19:53 History of Present Illness: Patient is a 54-year-old male who presents with episodic chest pain that began at approximately 2:00 AM this morning. The initial episode lasted about 20-30 minutes and resolved spontaneously without intervention. The pain recurred around 11:00 AM and again this evening. The current episode has been gradually improving. Patient describes the pain as 'real tight in the chest' accompanied by cold sweats, right arm tightness, shortness of breath, lightheadedness, and mild nausea. He reports becoming lightheaded again during IV placement. Patient did not take any medications for the pain, though he brought his cardiac medications with him. 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 His last cardiac evaluation was approximately two months ago. Related Data Previous Rx's ?Medication ?Instructions ?Recorded losartan 25 mg tablet 12.5 mg (1/2 x 25 mg) PO MIRNA LY #30 01/25/24 tabs metoprolol tartrate 25 mg tablet 12.5 mg (1/2 x 25 mg) PO BID #60 01/25/24 tabs nitroglycerin 0.4 mg sublingual 0.4 mg sublingual Q5M PRN chest 03/14/24 tablet pain 30 days #30 tabs aspirin 81 mg chewable tablet 81 mg PO DAILY #30 tabs 05/31/24 apixaban 5 mg tablet (Eliquis) See Rx Instructions .Ro naseem 07/26/24 .COMPLEX #60 tabs atorvastatin 80 mg tablet See Rx Instructions .Route 0 07/26/24 .COMPLEX #30 tabs spironolactone 25 mg tablet See Rx Instructions .Route 07/26/24 .COMPLEX #30 tabs methocarbamol 500 mg tablet 500 mg PO TID PRN muscle s pasm #90 08/23/24 tabs glimepiride 4 mg tablet 4 mg PO DAILY #90 tabs 09/19 blood sugar diagnostic (OneTouch #100 ea 10/31/24 Ultra Test strips) blood-glucose meter #1 ea 10/31/24 dulaglutide 0.75 mg/0.5 mL 0.75 mg (0.5 mL) SUBCUT .qw k #1 mL 10/31/24 subcutaneous pen injector (Trulicity) lancets 33 gauge (LuisaTouch Delica #100 ea 10/31/24 Plus Lancet) furosemide 20 mg tablet See Rx Instructions .Route 0 11/11/24 .COMPLEX #30 tabs gabapentin 300 mg capsule 600 mg (2 x 300 mg) PO TID # 180 12/08/24 caps pentoxifylline 400 mg 400 mg PO TID #90 tabs 12/18 tablet,extended release Allergies Allergy/AdvReac Type Severity Reaction Status Date / Time No Known Allergies Allergy Verified 12/19/24 11:59 Review of Systems 2 Narrative: Cardiovascular: Chest tightness, right arm tightness Respiratory: Shortness of breath Neurological: Lightheadedness Gastrointestinal: Mild nausea Constitutional: Cold sweats PFSH ED 2 PFSH: Medical History (Updated 01/04/25 @ 00:18 by Shawn Dave DO) Lung nodule seen on imaging study CT done 11.07.24--need to repeat 6 months Hypertension, essential Arterial insufficiency of lower extremity Left lower leg--CTA abnormal 06.19.24--now seeing [facility] vascular surgeon Family hx of prostate cancer Uncontrolled type 2 diabetes mellitus with insulin therapy Nicotine dependence, cigarettes, uncomplicated had CT in October 2023 in [place] CAD (coronary artery disease) hx of DE in past (he didn't realize it, testing shows it) Cardiomyopathy EF 21% October 2023; EF 38% on ECHO done in [place] ..24; 4.25 46% Other diabetic neurological complication associated with diabetes mellitus due to underlying condition History of arterial thrombosis Left leg arterial thromboembolism Hypercholesterolemia Type 2 diabetes mellitus with diabetic neuropathy, with long-term current use of insulin HTN (hypertension) with goal to be determined Surgical History Hx of vascular surgery 08.23.24 Dr. Engel at [facility]: L lower leg angiogram with balloon angioplasty Hx of cardiac cath 10.16.23 [facility]: CAD of LAD and RCA Hx of fasciotomy left lower leg--had 4 compartment fasciotomy for compartment syndrome after arterial thromboembolism 10/24 History of thrombectomy L leg intra-arterial thrombolysis, thromboendarterectomy w/ L SFA stenting Family History Father Hypertension Heart disease Prostate cancer Renal cancer Mother Lung disease Hypertension Brother CAD (coronary artery disease) Chronic kidney disease (CKD) Social History Smoking and tobacco/nicotine status: current every day tobacco/nicotine user cigarettes Packs smoked per day: 1 [ Other cigarette details: now 06/04ppd 04.25.24] Alcohol intake: former Year of sobriety/quit date alcohol: 2019 Substance/Drug Use: never Household members: family Housing: Other Details: currently living with sister and her Marital status: Number of children: 0 Highest education level completed: 10th Grade Current occupational status: unemployed 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, [employer] Physical Exam 2 Const: GENERAL APPEARANCE: cooperative, ill appearing and diaphoretic; not frail appearing HENMT: COMMON NORMALS: normocephalic, atraumatic and Normal external nose present HEAD & SCALP: normocephalic and atraumatic FACE & SINUS: normal facial exam and face symmetric NOSE: Normal external nose present Eye: COMMON NORMALS: Equal, round and reactive pupils present and EOMs intact bilaterally PUPIL: Yes Equal, round and reactive pupils present Neck/C-Spine: GENERAL: Yes trachea midline Chest: CHEST: Yes Symmetrical chest wall rise Resp: COMMON NORMALS: normal respiratory effort, No retractions, No use of accessory muscles and clear to auscultation bilaterally AUSCULTATION: clear to auscultation bilaterally Cardio: COMMON NORMALS: regular rate and regular rhythm RATE: regular rate RHYTHM: regular rhythm GI: COMMON NORMALS: Normal to inspection, nondistended, normoactive bowel sounds present Extremity: COMMON NORMALS: no pedal edema Neuro: CHENG COMA SCALE: document GCS findings Cheng coma scale eye opening: Spontaneous [place] coma scale verbal response: Orientated [place] coma scale motor response: Obey commands [place] coma scale total score: 15 S ENSORY EXAM: Yes extremities (intact) Psych: COMMON NORMALS: speech normal SPEECH: Yes normal speech Skin: COMMON NORMALS: no rashes or lesions noted GENERAL SKIN EXAM: no rashes or lesions noted Course 2 Vital Signs: Vital signs: Vital Signs Pulse Rate 92 01/03/25 23:35 Respiratory Rate 14 01/03/25 23:35 Blood Pressure 105/73 01/03/25 23:35 Pulse Oximetry 96 01/03/25 23:35 Oxygen Delivery Me thod Room Air 01/03/25 20:35 MDM - Chest Pain Medical Decision Making Patient appeared somewhat diaphoretic, short of breath. Pain is improved after morphine and nitroglycerin paste. In fact, his chest discomfort and right arm pain are resolved at this point. However, he had some mild EKG changes, nonspecific ST wave changes in the anterior leads in the precordial leads both on his 0-hour and 2-hour EKG. He has Q waves present in his anterior leads as well indicative of likely old injury. His first troponin was elevated at 69, his 2-hour delta is over 16. Chest x-ray shows a pulmonary nodule, that is slightly increased in size since his prior exam, but no acute infiltrates. Given the rise in his troponin, previous history, and history of this episode, he will be admitted for non-STEMI. I spoke with cardiology regarding EKG changes, and he does not meet STEMI criteria at this time. Spoke with the hospitalist who is willing to admit. Cardiology will consult. He will go to the [facility]. He received Lovenox and Plavix 300 mg as well as aspirin. Lab Data 01/03/25 20:00 01/03/25 20:00 Radiology Impressions Chest X-Ray 01/03/25 19:56 IMPRESSION: 1. Right lower lobe 9.6 mm pulmonary nodule more prominent compared to prior exam, dedicated chest CT could further evaluate this. 2. Emphysematous changes. 3. Borderline cardiomegaly. Laboratory Results WBC 16.99 10^3/uL (3.29-11.43) H 01/03/25 20:00 RBC 6.04 10^6/uL (3.85-5.65) H 01/03/25 20:00 Hgb 16.80 g/dL (11.27-16.99) 01/03/25 20:00 Hct 51.3 % (37-53) 01/03/25 20:00 MCV 84.9 fl (82-101) 01/03/25 20:00 MCH 27.8 pg (27-33) 01/03/25 20:00 MCHC 32.7 g/dL (30-55) 01/03/25 20:00 RDW 14.8 % (12.1-15.1) 01/03/25 20:00 Plt Count 1048 10^3/cmm (157-399) H 01/03/25 20:00 MPV 9.1 fL (7.4-10.4) 01/03/25 20:00 Neut % (Auto) 66.5 % 01/03/25 20:00 Lymph % (Auto) 25.1 % 01/03/25 20:00 [place] % (Auto) 5.6 % 01/03/25 20:00 Eos % (Auto) 1.7 % 01/03/25 20:00 Baso % (Auto) 0.6 % 01/03/25 20:00 Neut # (Auto) 11.30 10^3/uL (1.8-7.7) H 01/03/25 20:00 Lymph # (Auto) 4.3 10^3/uL (0.8-4.8) 01/03/25 20:00 [place] # (Auto) 1.0 10^3/uL (0.2-0.9) H 01/03/25 20:00 Eos # (Auto) 0.3 10^3/uL (0.0-0.8) 01/03/25 20:00 Baso # (Auto) 0.1 10^3/uL (0.0-0.1) 01/03/25 20:00 Nucleated RBC % (auto) 0 % 01/03/25 20:00 Nucleated RBCs # 0.0 /100WBC 01/03/25 20:00 Sodium 136 mmol/L (136-145) 01/03/25 20:00 Potassium 4.1 mmol/L (3.5-5.1) 01/03/25 20:00 Chloride 99 mmol/L (98-107) 01/03/25 20:00 Carbon Dioxide 22 mmol/L (22-29) 01/03/25 20:00 Anion Gap 19.1 (5-19) H 01/03/25 20:00 BUN 15 mg/dL (6-20) 01/03/25 20:00 Creatinine 0.9 mg/dL (0.7-1.2) 01/03/25 20:00 GFR Calculation 87.9 mL/min (90-130) L 01/03/25 20:00 Glucose 136 mg/dL (65-115) H 01/03/25 20:00 Calculated Osmolality 285 mOsm/kg (285-295) 01/03/25 20:00 Calcium 9.8 mg/dL (8.5-10.5) 01/03/25 20:00 Total Bilirubin 0.7 mg/dL (0.15-1.2) 01/03/25 20:00 AST 35 U/L (0-40) 01/03/25 20:00 ALT 50 U/L (0-41) H 01/03/25 20:00 Alkaline Phosphatase 100 U/L (40-130) 01/03/25 20:00 Troponin T Baseline 69 ng/L (0-15) H 01/03/25 20:00 Troponin T 120 Minute 85.20 ng/L (0-15) H 01/03/25 21:47 Delta Troponin T 16.20 ABS# (0-10) H* 01/03/25 21:47 NT-Pro-B Natriuret Pep 697 pg/mL (0-125) H 01/03/25 20:00 Total Protein 7.5 g/dL (6.6-8.7) 01/03/25 20:00 Albumin 4.4 g/dL (3.5-5.2) 01/03/25 20:00 Globulin 3.1 g/dL (1.3-4.6) 01/03/25 20:00 All radiology interpretation(s) finalized by discharge Critical Care Time 2 Critical Care Time: Critical Care Time: Yes Total Critical Care Time: 35 Attestation: This case had a high probability of a clinically significant, sudden, or life threatening deterioration of this patient's condition which required my full and direct attention, intervention and personal management. Time is independent of any procedures performed Discharge Plan Discharge Patient Disposition: Admitted As Inpatient Admit Provider: Paolo Mccrary Clinical Impression: Non-ST elevated myocardial infarction (non-STEMI) Condition: Fair Coding Level of Care Code ED Store Assistant for Chg Fwd Heart Score HEART Score Components History: Moderately Suspicious EKG: Non-specific Changes Age: 45-64 yrs Risk Factors: 1 or 2 Risk Factors Troponin: Baseline Trop >45 ng/L HEART Score RESULT HEART Score: 6
--- NOTE | 2025-01-03 21:47 | ECG_ITS ---
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 Measurements Intervals [place] Rate: 88 P: 45 TN: 171 QRS: -44 QRSD: 114 T: 92 QT: 379 QTc: 460 Interpretive Statements SINUS RHYTHM LEFT AXIS DEVIATION [QRS AXIS < -30] LOW QRS VOLTAGE IN PRECORDIAL LEADS [QRS DEFLECTION < 1.0 mV IN CHEST LEADS] ANTEROSEPTAL MYOCARDIAL INFARCTION , OF INDETERMINATE AGE [40+ ms Q WAVE IN V1-V4] Non Specific ST-T changes Compared to ECG 01/03/2025 19:40:14 Left-axis deviation now present Ventricular premature complex(es) no longer present Left anterior fascicular block no longer present Myocardial infarct finding still present Electronically Signed On 01-03-2025 23:08:38 CDT by Praveena Bustos M.D. [email or web address]
[2025-01-03 22:11] LABS: Troponin 5 2HR 85.20 ng/L (0-15)
[2025-01-03 22:15] LABS: Troponin 5 2HR Delta 16.20 ABS# (0-10)
--- NOTE | 2025-01-03 23:29 | PM.CONSULT ---
Providers/Reason For Consult Consulting Physician/Specialty*: ARIAN Bustos MD/cardiology Reason for Consult*: Patient with chest pain and elevated troponin T Requesting Physician: Dr. Mccrary Attending Physician: Dr. Mccrary Primary Care Provider: Chayo Gomez MD History of Present Illness History of Present Illness Bennett Millard is a 54 year old male is being admitted to the hospital through the emergency room where he presented with increasing episodes of chest pain. This patient apparently has been in his baseline state of health up until 2:00 this morning when he woke up with chest pain for the first time. The pain made to last for 15 to 20 minutes. He was diaphoretic with some shortness of breath. Pain subsided spontaneously and he went back to bed. Around 11:00 in the morning, he again started having similar chest pain. No definite varying factors. The pain was in the mid substernal region and the left side of the chest. Had some associated shortness of breath and sweating. The patient subsided spontaneously. He had the third episode of pain around 7:00 this evening. Similar quality of pain. Because of the recurrent episodes of this chest pain, he was brought to the hospital. He did not have any other associated symptoms or radiation of pain. No fever, chills or cough. No orthopnea or PND. This patient is known to have atherosclerotic heart disease and had a myocardial infarction. In October of last year, he developed acute limb ischemia and underwent emergency thrombectomy of the SFA on the left side. He apparently developed compartment syndrome in the left leg for which he underwent fasciotomy. Couple of months ago, he underwent some intervention of the left lower extremity in [place]. Details are not available. His LV ejection fraction was around 28% by angiogram in October of last year. In July of this year, the LV ejection fraction was found to be 46% by echocardiogram. He was found to have total occlusion of the left descending artery proximally. He had a 70% lesion in the first relatively small caliber obtuse marginal artery. The PLV branch of the right coronary artery also was found to be totally occluded. No other significant disease. He did not have any coronary intervention at that time. He has a history of hypertension, dyslipidemia, type 2 diabetes and? Kidney disease. He is on long-term oral anticoagulation for possible LV thrombus?.The source of superficial femoral artery embolization, possibly from the left Ventricle. Apparently he was found to have atherosclerosis in the abdominal aorta as well. It is not clear to me whether the thrombus came from the abdominal aorta or from the left ventricle. He continues to smoke a pack a day for the last more than 30 years. No alcohol abuse or any substance abuse. He has a strong family history for premature atherosclerotic heart diseas. His brother had a myocardial infarction in his late 30s. He had multiple PCI's. He at age of 42 with cancer. His father also had a multiple PCI's in his 40s. He also of cancer. No other relevant family history. Review of Systems Narrative: CONSTITUTIONAL: No fever or chills. EYES: No blurring of vision or other visual disturbances lately. ENT: No hoarseness of voice, auditory disturbances or sore throat. CARDIOVASCULAR: As mentioned above. RESPIRATORY: Ongoing smoking abuse GASTROINTESTINAL: No hematemesis or melena. GENITOURINARY: No dysuria or hematuria. INTEGUMENTARY: No skin rashes or history of skin cancer. NEURO: No transient ischemic attacks or amaurosis. PSYCHIATRIC: No history of psychosis or major depression. HEMATOLOGIC: No bleeding disorders or significant anemia. ENDOCRINE: History of type 2 diabetes MUSCULOSKELETAL: No recent joint pain or swelling. ALLERGY/IMMUNOLOGY: As mentioned above. Medications/Allergies Home Medications ?Medication ?Instructions ?Recorded ?Confirmed ?Last Taken ?Type losartan 25 mg tablet 12.5 mg (1/2 x 25 mg) PO DAILY #30 01/25/24 12/19/24 12/19/24 Rx tabs metoprolol tartrate 25 mg tablet 12.5 mg (1/2 x 25 mg) PO BID #60 01/25/24 12/19/24 12/19/24 Rx tabs nitroglycerin 0.4 mg sublingual 0.4 mg sublingual Q5M PRN chest 03/14/24 12/19/24 Unknown Rx tablet pain 30 days #30 tabs aspirin 81 mg chewable tablet 81 mg PO DAILY #30 tabs 05/31/24 12/19/24 06/02/24 Rx apixaban 5 mg tablet (Eliquis) See Rx Instructions .Route 07/26/24 12/19/24 12/19/24 Rx .COMPLEX #60 tabs atorvastatin 80 mg tablet See Rx Instructions .Route 07/26/24 12/19/24 12/18/24 Rx .COMPLEX #30 tabs spironolactone 25 mg tablet See Rx Instructions .Route 07/26/24 12/19/24 12/19/24 Rx .COMPLEX #30 tabs methocarbamol 500 mg tablet 500 mg PO TID PRN muscle spasm #90 08/23/24 12/19/24 12/18/24 Rx tabs glimepiride 4 mg tablet 4 mg PO DAILY #90 tabs 09/19/24 12/19/24 12/19/24 Rx blood sugar diagnostic ([employer] #100 ea 10/31/24 12/19/24 Unknown Rx Ultra Test strips) blood-glucose meter #1 ea 10/31/24 12/19/24 Unknown Rx dulaglutide 0.75 mg/0.5 mL 0.75 mg (0.5 mL) SUBCUT .qwk #1 mL 10/31/24 12/19/24 Unknown Rx subcutaneous pen injector (Trulicaitainment) lancets 33 gauge ([employer] Delica #100 ea 10/31/24 12/19/24 Unknown Rx Plus Lancet) furosemide 20 mg tablet See Rx Instructions .Route 11/11/24 12/19/24 12/19/24 Rx .COMPLEX #30 tabs gabapentin 300 mg capsule 600 mg (2 x 300 mg) PO TID #180 12/08/24 12/19/24 12/19/24 10:00 Rx caps pentoxifylline 400 mg 400 mg PO TID #90 tabs 12/18/24 12/19/24 12/19/24 Rx tablet,extended release Allergies Allergy/AdvReac Type Severity Reaction Status Date / Time No Known Allergies Allergy Verified 12/19/24 11:59 PFSH Acute PFSH: Medical History Lung nodule seen on imaging study CT done 8--need to repeat 6 months Hypertension, essential Arterial insufficiency of lower extremity Left lower leg--CTA abnormal 06.19.24--now seeing [facility] [place] vascular surgeon Family hx of prostate cancer Uncontrolled type 2 diabetes mellitus with insulin therapy Nicotine dependence, cigarettes, uncomplicated had CT in October 2023 in [place] CAD (coronary artery disease) hx of NH in past (he didn't realize it, testing shows it) Cardiomyopathy EF 21% October 2023; EF 38% on ECHO done in [place] 11.1.24; 4.25 46% 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 Engel at [facility] [place]: L lower leg angiogram with balloon angioplasty Hx of cardiac cath 10.16.23 [facility]: CAD of LAD and RCA Hx of fasciotomy left lower leg--had 4 compartment fasciotomy for compartment syndrome after arterial thromboembolism 10/24 History of thrombectomy L leg intra-arterial thrombolysis, thromboendarterectomy w/ L SFA stenting Family History Father Hypertension Heart disease Prostate cancer Renal cancer Mother Lung disease Hypertension Brother CAD (coronary artery disease) Chronic kidney disease (CKD) Social History Smoking and tobacco/nicotine status: current every day tobacco/nicotine user cigarettes Packs smoked per day: 1 [ Other cigarette details: now 04.25.24] Alcohol intake: former Year of sobriety/quit date alcohol: 2019 Substance/Drug Use: never Household members: family Housing: Other Details: currently living with sister and her Marital status: Number of children: 0 Highest education level completed: 10th Grade Current occupational status: unemployed 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 Not in any acute distress. HEENT: No significant pallor, icterus or lymphadenopathy.Oral cavity: There are no mucous membrane lesions. NECK: Trachea appears to be central. No masses noted. No JVD or thyromegaly appreciated. RESPIRATORY: Chest is symmetrical. No intercostals muscle retraction or any accessory muscle activation. There is no chest wall tenderness. Breath sounds are heard bilaterally. No rales or rhonchi heard. No evidence of any consolidation. BREASTS: Deferred. HEART: The heart sounds are normal. No S3 or S4. No significant murmurs. No pericardial rub ABDOMEN: No vessel pulsations or distention. No tenderness. No organomegaly appreciated. Bowel sounds are normally heard. : Deferred. RECTAL: Deferred. LYMPHATIC: No lymphadenopathy noted in the neck. EXTREMITIES: The left little toe has bluish discoloration. This is somewhat chronic. It is painful as well. Dorsalis pedis and posterior to pulses are nonpalpable on the left side. Posterior tibial pulse is palpable on the right side but he is weak. MUSCULOSKELETAL: No acute joint deformities or swelling SKIN: There are no significant rashes or ecchymosis NEUROPSYCHIATRIC: The patient is alert and oriented x3. Appears to be in a good mood. No tremors or rigidity noted. Data 01/03/25 20:00 01/03/25 20:00 Other Labs: Laboratory Last Values WBC 16.99 10^3/uL (3.29-11.43) H 01/03/25 20:00 RBC 6.04 10^6/uL (3.85-5.65) H 01/03/25 20:00 Hgb 16.80 g/dL (11.27-16.99) 01/03/25 20:00 Hct 51.3 % (37-53) 01/03/25 20:00 MCV 84.9 fl (82-101) 01/03/25 20: MCH 27.8 pg (27-33) 01/03/25 20: MCHC 32.7 g/dL (30-55) 01/03/25 20:00 RDW 14.8 % (12.1-15.1) 01/03/25 20:00 Plt Count 1048 10^3/cmm (157-399) H 01/03/25 20:00 MPV 9.1 fL (7.4-10.4) 01/03/25 20:00 Neut % (Auto) 66.5 % 01/03/25 20:00 Lymph % (Auto) 25.1 % 01/03/25 20: [place] % (Auto) 5.6 % 01/03/25 20:00 Eos % (Auto) 1.7 % 01/03/25 20:00 Baso % (Auto) 0.6 % 01/03/25 20:00 Neut # (Auto) 11.30 10^3/uL (1.8-7.7) H 01/03/25 20:00 Lymph # (Auto) 4.3 10^3/uL (0.8-4.8) 01/03/25 20:00 [place] # (Auto) 1.0 10^3/uL (0.2-0.9) H 01/03/25 20:00 Eos # (Auto) 0.3 10^3/uL (0.0-0.8) 01/03/25 20:00 Baso # (Auto) 0.1 10^3/uL (0.0-0.1) 01/03/25 20:00 Nucleated RBC % (auto) 0 % 01/03/25 20:00 Nucleated RBCs # 0.0 /100WBC 01/03/25 20:00 Sodium 136 mmol/L (136-145) 01/03/25 20:00 Potassium 4.1 mmol/L (3.5-5.1) 01/03/25 20:00 Chloride 99 mmol/L (98-107) 01/03/25 20:00 Carbon Dioxide 22 mmol/L (22-29) 01/03/25 20:00 Anion Gap 19.1 (5-19) H 01/03/25 20:00 BUN 15 mg/dL (6-20) 01/03/25 20:00 Creatinine 0.9 mg/dL (0.7-1.2) 01/03/25 20:00 GFR Calculation 87.9 mL/min (90-130) L 01/03/25 20:00 Glucose 136 mg/dL (65-115) H 01/03/25 20:00 Calculated Osmolality 285 mOsm/kg (285-295) 01/03/25 20:00 Calcium 9.8 mg/dL (8.5-10.5) 01/03/25 20:00 Total Bilirubin 0.7 mg/dL (0.15-1.2) 01/03/25 20:00 AST 35 U/L (0-40) 01/03/25 20:00 ALT 50 U/L (0-41) H 01/03/25 20:00 Alkaline Phosphatase 100 U/L (40-130) 01/03/25 20:00 Troponin T Baseline 69 ng/L (0-15) H 01/03/25 20:00 Troponin T 120 Minute 85.20 ng/L (0-15) H 01/03/25 21:47 Delta Troponin T 16.20 ABS# (0-10) H* 01/03/25 21:47 NT-Pro-B Natriuret Pep 697 pg/mL (0-125) H 01/03/25 20:00 Total Protein 7.5 g/dL (6.6-8.7) 01/03/25 20:00 Albumin 4.4 g/dL (3.5-5.2) 01/03/25 20:00 Globulin 3.1 g/dL (1.3-4.6) 01/03/25 20:00 A&P Assessment and plan 1. Atherosclerosis of [place] coronary artery of [place] heart with unstable angina pectoris: Patient has features suggestive of unstable angina complicated with non-ST elevation myocardial infarction. Hemodynamically seems to be stable. At this point, he may be treated with subcu Lovenox, beta-joyce, aspirin, Plavix and other symptomatic measures. He may be kept on dual current medications. I may hold off on the Eliquis at this time. 2. Hypercholesterolemia: May continue on the current medications. 3. History of arterial thrombosis: Patient seems to have acute on chronic limb ischemia involving the left lower extremity. I may Go ahead and do an arterial Doppler examination of both lower extremities to further evaluate. Patient had recent invention at the [facility]. We will try to get the results of the peripheral intervention. 4. Ischemic cardiomyopathy: The LV ejection fraction was 46% by echocardiogram. We may do a repeat echocardiogram to evaluate LV function and rule out any other pathology. 5. Nicotine dependence, cigarettes, uncomplicated: Patient strongly advised to quit smoking 6. Hypertension, essential: 7. Type 2 diabetes mellitus with diabetic neuropathy, with long-term current use of insulin: The blood sugar need to be closely monitored. Plan: Patient will get couple more cardiac enzymes to evaluate the troponin trend. Hold off on Eliquis. Echocardiogram and artery duplex to the lower extremities as mentioned above. Patient requested repeat cardiac catheterization to reevaluate the coronary arteries. Also will try to get the medical records from [place] regarding the recent peripheral arterial intervention. After reviewing the above and also based on the patient's clinical progress, further recommendations will be made. Thank you for the opportunity to evaluate this patient and make these recommendations PDMP PDMP Reviewed: Not Reviewed Consult Attestations Medical Necessity Statement: Patient requires continued hospital stay for close monitoring and further management Coding Level of Care Code 31390 Diagnoses Atherosclerosis of [place] coronary artery of [place] heart with unstable angina pectoris I25.110 [place] vs. transplanted heart: [place] heart Hypercholesterolemia E78.00 History of arterial thrombosis Z86.718 Ischemic cardiomyopathy I25.5 Nicotine dependence, cigarettes, uncomplicated F17.210 Hypertension, essential I10 Type 2 diabetes mellitus with diabetic neuropathy, with long-term current use of insulin E11.40; Z79.4 Diabetes mellitus correction insulin use: with termite exterminator use Diabetes mellitus complication status: with neurologic complications Diabetes mellitus complication detail: with unspecified neuropathy
--- NOTE | 2025-01-03 23:42 | P.HP_ITS ---
Providers/Chief Complaint 2 Admitting Physician: Paolo Mccrary MD Primary Care Provider: Chayo Gomez MD Chief Complaint: CP SOb right arm pain History of Present Illness as per the patient and the retrospect notes: Bennett Millard is a 54 year old male with past medical history of hypertension, arterial insufficiency of the lower extremities s/p stenting, diabetes mellitus, coronary artery disease, nicotine dependence, hyperlipidemia, presented to the hospital with chest pain that felt like chest pressure, mid central, radiating to right arm with diaphoresis and mild dizziness. The patient did not report any nausea, vomiting, any syncope or abdominal pain. The patient had chronic lower leg pains/neuropathy secondary to arterial insufficiency. And he also suffers shortness of breath on exertion with claudication symptoms of his legs especially on the left side. The patient has been compliant to his medications however has been actively smoking about a pack a day. Patient did not report any fever, chills or any signs of infectious pathology. Rest of the review of system was unremarkable Review of Systems 2 General: Reports: 10 or more systems reviewed and unremarkable except in HPI and below Medications/Allergies Home Medications ?Medication ?Instructions ?Recorded ?Confirmed ?Last Taken ?Type losartan 25 mg tablet 12.5 mg (1/2 x 25 mg) PO MIRNA LY #30 01/25/24 12/19/24 12/19/24 Rx tabs metoprolol tartrate 25 mg tablet 12.5 mg (1/2 x 25 mg) PO BID #60 01/25/24 12/19/24 12/19/24 Rx tabs nitroglycerin 0.4 mg sublingual 0.4 mg sublingual Q5M PRN chest 03/14/24 12/19/24 Unknown Rx tablet pain 30 days #30 tabs aspirin 81 mg chewable tablet 81 mg PO DAILY #30 tabs 05/31/24 12/19/24 06/02/24 Rx apixaban 5 mg tablet (Eliquis) See Rx Instructions .Ro naseem 07/26/24 12/19/24 12/19/24 Rx .COMPLEX #60 tabs atorvastatin 80 mg tablet See Rx Instructions .Route 0 07/26/24 12/19/24 12/18/24 Rx .COMPLEX #30 tabs spironolactone 25 mg tablet See Rx Instructions .Route 07/26/24 12/19/24 12/19/24 Rx .COMPLEX #30 tabs methocarbamol 500 mg tablet 500 mg PO TID PRN muscle s pasm #90 08/23/24 12/19/24 12/18/24 Rx tabs glimepiride 4 mg tablet 4 mg PO DAILY #90 tabs 09/1912/19/24 12/19/24 Rx blood sugar diagnostic (OneTouch #100 ea 10/31/2412/02 Unknown Rx Ultra Test strips) blood-glucose meter #1 ea 10/31/24 12/19/24 Unkn own Rx dulaglutide 0.75 mg/0.5 mL 0.75 mg (0.5 mL) SUBCUT .qw k #1 mL 10/31/24 12/19/24 Unknown Rx subcutaneous pen injector ([employer]It) lancets 33 gauge (OneTouch Delica #100 ea 10/31/24 Unknown Rx Plus Lancet) furosemide 20 mg tablet See Rx Instructions .Route 0 11/11/24 12/19/24 12/19/24 Rx .COMPLEX #30 tabs gabapentin 300 mg capsule 600 mg (2 x 300 mg) PO TID # 180 12/08/24 12/19/24 12/19/24 10:00 Rx caps pentoxifylline 400 mg 400 mg PO TID #90 tabs 12/1812/19/24 12/19/24 Rx tablet,extended release Allergies Allergy/AdvReac Type Severity Reaction Status Date / Time No Known Allergies Allergy Verified 12/19/24 11:59 PFSH Acute 2 PFSH: Medical History (Updated 01/04/25 @ 00:18 by Shawn Dave DO) Lung nodule seen on imaging study CT done 11.07.24--need to repeat 6 months Hypertension, essential Arterial insufficiency of lower extremity Left lower leg--CTA abnormal 06.19.24--now seeing [facility] vascular surgeon Family hx of prostate cancer Uncontrolled type 2 diabetes mellitus with insulin therapy Nicotine dependence, cigarettes, uncomplicated had CT in October 2023 in [place] CAD (coronary artery disease) hx of NH in past (he didn't realize it, testing shows it) Cardiomyopathy EF 21% October 2023; EF 38% on ECHO done in [place] 11.1.24; .25 46% Other diabetic neurological complication associated with diabetes mellitus due to underlying condition History of arterial thrombosis Left leg arterial thromboembolism Hypercholesterolemia Type 2 diabetes mellitus with diabetic neuropathy, with long-term current use of insulin HTN (hypertension) with goal to be determined Surgical History Hx of vascular surgery 08.23.24 Dr. Engel at [facility]: L lower leg angiogram with balloon angioplasty Hx of cardiac cath 10.16.23 [facility]: CAD of LAD and RCA Hx of fasciotomy left lower leg--had 4 compartment fasciotomy for compartment syndrome after arterial thromboembolism 10/24 History of thrombectomy L leg intra-arterial thrombolysis, thromboendarterectomy w/ L SFA stenting Family History Father Hypertension Heart disease Prostate cancer Renal cancer Mother Lung disease Hypertension Brother CAD (coronary artery disease) Chronic kidney disease (CKD) Social History Smoking and tobacco/nicotine status: current every day tobacco/nicotine user cigarettes Packs smoked per day: 1 [ Other cigarette details: now 04.25.24] Alcohol intake: former Year of sobriety/quit date alcohol: 2019 Substance/Drug Use: never Household members: family Housing: Other Details: currently living with sister and her Marital status: Number of children: 0 Highest education level completed: 10th Grade Current occupational status: unemployed 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, [email or web address] Vitals/I&O/Wt Last Vital Signs Pulse 92 01/03/25 23:35 Resp 14 01/03/25 23:35 BP 105/73 01/03/25 23:35 Pulse Ox 96 01/03/25 23:35 O2 Del Method Room Air 01/03/25 20:35 Weight last 48 hrs Weight 122.47 kg Physical Exam 2 Narrative: General: Alert and oriented, lying comfortably without any distress HEENT: Normocephalic, atraumatic, grossly unremarkable exam Cardio: normal rate rhythm, normal S1-S2 without any murmurs, rubs, or gallops and JVD normal Respiratory: normal vascular breathing on auscultation without any wheezes, stridor, rhonchi GI: Abdomen soft, nontender, nondistended, normoactive bowel sounds present all 4 quadrants, Neuro: intact cranial nerves motor and sensory and cerebellar/coordination function without any focal neurological deficit Behavior: Appropriate and cooperative Extremities: Adequate palpable pulses however dorsalis pedis on the left side was feeble, having some discoloration of his little toe and side of the heel. Patient has Surgery alonso on medial and lateral side of the [place]. Trace pedal edema Skin: As mentioned above Data 01/03/25 20:00 01/03/25 20:00 A&P Assessment and plan 1. Non-ST elevated myocardial infarction (non-STEMI): - Cardiology on board, recommended to start on subcutaneous Lovenox therapeutic dose 100 mg twice daily started - Beta-joyce aspirin and Plavix to continue as per home medications - Held Eliquis - Statins - Telemetry monitoring -Cardiology on board and to follow-up the plan for tomorrow 2. Atherosclerosis of [place] coronary artery of [place] heart with unstable angina pectoris: - Continue dual antiplatelet therapy with statins - Telemetry monitoring 3. Hypertension, essential: - Continue home dose medications after reconciliation (patient taking losartan total 25 mg daily) - 4. Diabetic ulcer of left fifth toe: Insulin sliding scale Wound care for the left foot small toe and heel discoloration 5. Arterial insufficiency of lower extremity: Continue on dual antiplatelet therapy with statins Patient following with the vascular surgeon at [facility] Outpatient management or referral at the time of discharge 6. Claudication: History of peripheral artery disease with stenting Currently actively smoking Emphasis on abstinence/cessation of smoking has been provided adequately 21 mg nicotine patch Continue on dual antiplatelet therapy with statins 7. Type 2 diabetes mellitus with diabetic neuropathy, with long-term current use of insulin: Insulin sliding scale and monitoring of blood glucose 8. Hypercholesterolemia: Home dose statins to continue PDMP PDMP Reviewed: Not Reviewed Attestations 2 Medical Necessity Statement*: Bennett Millard's hospital stay will require greater than 2 midnights for management of NSTEMI considering patient having increased oxygen and presentation of chest pain. Time Spent in Patient Care: 16 - 35 minutes (>than 50% of time sp ent in counselling and/or direct pt care on unit) . Other Attestations: Patient condition has been discussed at length with the patient/family, I have independently reviewed the chart labs imaging/diagnostics/EKG. the goals of care and code status with the patient/family/NOK/legal physician relations representative, and documented accordingly. The patient/family has been informed about the current condition and further plan of care. Agreed with the plan of care and understood without any language barrier. Every effort was made to ensure accuracy of grinder mill operator. Any obvious errors or omissions should be clarified with the author of the document. Coding Level of Care Code Acute Code for Chg Fwd Diagnoses Non-ST elevated myocardial infarction (non-STEMI) I21.4 Atherosclerosis of [place] coronary artery of [place] heart with unstable angina pectoris I25.110 [place] vs. transplanted heart: [place] heart Hypertension, essential I10 Diabetic ulcer of left fifth toe E11.621; L97.529 Arterial insufficiency of lower extremity I73.9 Claudication I73.9 Type 2 diabetes mellitus with diabetic neuropathy, with long-term current use of insulin E11.40; Z79.4 Diabetes mellitus fpc insulin use: with manager intermediate use Diabetes mellitus complication status: with neurologic complications Diabetes mellitus complication detail: with unspecified neuropathy Hypercholesterolemia E78.00
[2025-01-04] VITALS (12 sets, daily range): BP systolic 95–115; BP diastolic 69–92; PULSE 70–84; RESP 12–20; TEMP 35.7–36.9; O2SAT 95–97; BMI 33.8
--- NOTE | 2025-01-04 | PC.NURSE ---
Patient report was called to Lashanda in [facility]. All questions and concerns were addressed at time of report.
[2025-01-04 00:14] LABS: Magnesium 2.3 mg/dL (1.7-2.3); Thyroid Stimulating Hormone 1.50 uIU/mL (0.27-4.20)
--- NOTE | 2025-01-04 02:18 | ECG_ITS ---
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 Measurements Intervals [place] Rate: 79 P: 43 [place]: 183 QRS: -33 QRSD: 118 T: 89 QT: 392 QTc: 451 Interpretive Statements SINUS RHYTHM LEFT AXIS DEVIATION [QRS AXIS < -30] LOW QRS VOLTAGE IN PRECORDIAL LEADS [QRS DEFLECTION < 1.0 mV IN CHEST LEADS] ANTEROSEPTAL MYOCARDIAL INFARCTION , OF INDETERMINATE AGE [40+ ms Q WAVE IN V1-V4] Compared to ECG 01/03/2025 21:47:46 ST (T wave) deviation no longer present Myocardial infarct finding still present Electronically Signed On 01-04-2025 14:39:38 CDT by Praveena Bustos M.D. [email or web address]
[2025-01-04 02:52] LABS: Hematocrit 47.8 % (37-53); Hemoglobin 15.40 g/dL (11.27-16.99); Mean Corpuscular HGB Conc 32.2 g/dL (30-55); Mean Corpuscular Hemoglobin 27.6 pg (27-33); Mean Corpuscular Volume 85.7 fl (82-101); Nucleated Red Blood Cells % 0 %; Platelet Count 892 10^3/cmm (157-399); Red Blood Count 5.58 10^6/uL (3.85-5.65); White Blood Count 16.95 10^3/uL (3.29-11.43)
[2025-01-04 02:58] LABS: Alanine Aminotransferase 44 U/L (0-41); Albumin Level 4.4 g/dL (3.5-5.2); Alkaline Phosphatase 98 U/L (40-130); Anion Gap 15.8 (5-19); Aspartate Amino Transferase 35 U/L (0-40); Blood Urea Nitrogen 20 mg/dL (6-20); Calcium 9.5 mg/dL (8.5-10.5); Carbon Dioxide 25 mmol/L (22-29); Chloride 99 mmol/L (98-107); Creatinine Clr Calc Pharmacy 153.1487; Globulin 2.3 g/dL (1.3-4.6); Glucose 114 mg/dL (65-115); Osmolality Calculated 283 mOsm/kg (285-295); Potassium 4.8 mmol/L (3.5-5.1); Sodium 135 mmol/L (136-145); Total Protein 6.7 g/dL (6.6-8.7)
[2025-01-04 03:13] LABS: Troponin 5 6HR 178.0 ng/L (0-15); Troponin 5 6HR Delta 109.0 ng/L (0-12)
[2025-01-04] MEDS: morphine 4 mg/mL SDV 1 mL 2 MG IVP ×2 (05:49→12:12)
--- NOTE | 2025-01-04 06:03 | PC.NURSE ---
Notified Dr. Mccrary that patient BP is 106/72 HR 80. Patient has metoprolol 12.5 and losartan 12.5 mg ordered now. Per MD hold losartan and give metoprolol.
[2025-01-04 08:31] LABS: Cholesterol 121 mg/dL (0-200); HDL Cholesterol 22 mg/dL (60-100); Iron 52 ug/dL (59-158); Total Iron Binding Capacity 252 mcg/dl; Triglycerides 224 mg/dL (0-150); Unsaturated Iron Binding 200 ug/dL (112-347); VLDL Cholestrol Calculation 45 mg/dL (0-30)
[2025-01-04 08:46] LABS: Vitamin B12 638 pg/mL (232-1245)
[2025-01-04] MEDS: perflutren protein-a microsphr 0.22 mg/mL SDV 3 mL IV (08:48)
--- NOTE | 2025-01-04 09:11 | P.PN_ITS ---
Subjective 2 Subjective: The patient is feeling okay. No chest pain or chest tightness. No unusual shortness of breath. Vitals are stable. Medications: Medication Review Details: Current Medications Hydrocodone Bitart/Acetaminophen (Hydrocodone-Acetaminophen 5-325 Mg Tablet) 1 tab PO Q4H PRN PRN Reason: MODERATE TO SEVERE PAIN Al Hydrox/Mg Hydrox/Simethicone (Ntxw-Ntb-Cxkbbvvgh-Katiana 30 Ml Udc) 15 ml PO Q6H PRN PRN Reason: INDIGESTION Aspirin (Aspirin 81 Mg Chew Tablet) 81 mg PO DAILY [facility] Last Admin: 01/04/25 05:48 Dose: 81 mg Atorvastatin Calcium (Atorvastatin 40 Mg Tablet) 80 mg PO DAILY [facility] Last Admin: 01/04/25 05:47 Dose: 80 mg Calcium Carbonate (Calcium Carbonate 500 Mg Chew Tablet) 1,000 mg PO Q4H PRN PRN Reason: DYSPEPSI Enoxaparin Sodium (Enoxaparin 100 Mg/Ml Syringe) 100 mg SUBCUT Q12H [facility] Gabapentin (Gabapentin 300 Mg Capsule) 600 mg PO TID [facility] Last Admin: 01/04/25 05:48 Dose: Not Given Metoprolol Tartrate (Metoprolol Tartrate 25 Mg Tablet) 12.5 mg PO BID [facility] Last Admin: 01/04/25 05:48 Dose: 12.5 mg Morphine Sulfate (Morphine 4 Mg/Ml Sdv 1 Ml) 2 mg IVP Q4H PRN PRN Reason: SEVERE PAIN Last Admin: 01/04/25 05:49 Dose: 2 mg Nicotine (Nicotine 21 Mg Patch) 1 patch TRANSDERMA DAILY [facility] Last Admin: 01/04/25 01:29 Dose: 1 patch Nitroglycerin (Nitroglycerin 0.4 Mg Sublingual Tablet) 0.4 mg SUBLINGUAL Q5M PRN PRN Reason: CHEST PAIN Ondansetron HCl (Ondansetron 2 Mg/Ml Sdv 2 Ml) 4 mg IVP Q8H PRN PRN Reason: vomiting, or N/V if npo Pantoprazole Sodium (Pantoprazole Dr 40 Mg Tablet) 40 mg PO DAILY [facility] Last Admin: 01/04/25 05:48 Dose: 40 mg Vitals/I&O/Wt Last Vital Signs Temp 96.7 F L 01/04/25 07:51 Pulse 75 01/04/25 08:06 Resp 18 01/04/25 07:51 BP 104/76 01/04/25 07:51 Pulse Ox 97 01/04/25 08:06 O2 Del Method Nasal Cannula 01/04/25 08:06 O2 Flow Rate 2 01/04/25 08:06 01/03/25 01/04/25 01/04/25 22:59 06:59 14:59 Intake Total 480 / 480 120 / 120 Balance 480 / 480 120 / 120 Weight last 48 hrs Weight 275 lb 9.6 oz Weight 278 lb 4.8 oz Weight 270 lb Physical Exam 2 Narrative: GENERAL: The patient is alert and oriented times three. Not in any acute distress. HEENT: No significant pallor, icterus or lymphadenopathy.Oral cavity: There are no mucous membrane lesions. NECK: Trachea appears to be central. No masses noted. No JVD or thyromegaly appreciated. RESPIRATORY: Chest is symmetrical. No intercostals muscle retraction or any accessory muscle activation. There is no chest wall tenderness. Breath sounds are heard bilaterally. No rales or rhonchi heard. No evidence of any consolidation. BREASTS: Deferred. HEART: The heart sounds are normal. No S3 or S4. No significant murmurs. No pericardial rub ABDOMEN: No vessel pulsations or distention. No tenderness. No organomegaly appreciated. Bowel sounds are normally heard. : Deferred. RECTAL: Deferred. LYMPHATIC: No lymphadenopathy noted in the neck. EXTREMITIES: The left little toe has bluish discoloration. This is somewhat chronic. It is painful as well. Dorsalis pedis and posterior to pulses are nonpalpable on the left side. Posterior tibial pulse is palpable on the right side but he is weak. MUSCULOSKELETAL: No acute joint deformities or swelling SKIN: There are no significant rashes or ecchymosis NEUROPSYCHIATRIC: The patient is alert and oriented x3. Appears to be in a good mood. No tremors or rigidity noted. Data 01/04/25 02:12 01/04/25 02:12 Other Labs: Laboratory Last Values WBC 16.95 10^3/uL (3.29-11.43) H 01/04/25 02:12 RBC 5.58 10^6/uL (3.85-5.65) 01/04/25 02:12 Hgb 15.40 g/dL (11.27-16.99) 01/04/25 02:12 Hct 47.8 % (37-53) 01/04/25 02:12 MCV 85.7 fl (82-101) 01/04/25 02:12 MCH 27.6 pg (27-33) 01/04/25 02:12 MCHC 32.2 g/dL (30-55) 01/04/25 02:12 RDW 14.9 % (12.1-15.1) 01/04/25 02:12 Plt Count 892 10^3/cmm (157-399) H 01/04/25 02:12 MPV 9.0 fL (7.4-10.4) 01/04/25 02:12 Neut % (Auto) 60.0 % 01/04/25 02:12 Lymph % (Auto) 30.3 % 01/04/25 02:12 [place] % (Auto) 7.1 % 01/04/25 02:12 Eos % (Auto) 1.6 % 01/04/25 02:12 Baso % (Auto) 0.6 % 01/04/25 02:12 Neut # (Auto) 10.17 10^3/uL (1.8-7.7) H 01/04/25 02:12 Lymph # (Auto) 5.1 10^3/uL (0.8-4.8) H 01/04/25 02:12 [place] # (Auto) 1.2 10^3/uL (0.2-0.9) H 01/04/25 02:12 Eos # (Auto) 0.3 10^3/uL (0.0-0.8) 01/04/25 02:12 Baso # (Auto) 0.1 10^3/uL (0.0-0.1) 01/04/25 02:12 Nucleated RBC % (auto) 0 % 01/04/25 02:12 Nucleated RBCs # 0.0 /100WBC 01/04/25 02:12 Sodium 135 mmol/L (136-145) L 01/04/25 02:12 Potassium 4.8 mmol/L (3.5-5.1) 01/04/25 02:12 Chloride 99 mmol/L (98-107) 01/04/25 02:12 Carbon Dioxide 25 mmol/L (22-29) 01/04/25 02:12 Anion Gap 15.8 (5-19) 01/04/25 02:12 BUN 20 mg/dL (6-20) 01/04/25 02:12 Creatinine 0.8 mg/dL (0.7-1.2) 01/04/25 02:12 GFR Calculation 100.7 mL/min (90-130) 01/04/25 02:12 Glucose 114 mg/dL (65-115) 01/04/25 02:12 POC Glucose 117 mg/dL (70-110) H 01/04/25 06:40 Calculated Osmolality 283 mOsm/kg (285-295) L 01/04/25 02:12 Calcium 9.5 mg/dL (8.5-10.5) 01/04/25 02:12 Magnesium 2.3 mg/dL (1.7-2.3) 01/03/25 20:00 Iron 52 ug/dL (59-158) L 01/04/25 02:12 TIBC 252 mcg/dl 01/04/25 02:12 % Saturation 20.6 % (20-50) 01/04/25 02:12 Unsat Iron Binding 200 ug/dL (112-347) 01/04/25 02:12 Total Bilirubin 0.3 mg/dL (0.15-1.2) 01/04/25 02:12 AST 35 U/L (0-40) 01/04/25 02:12 ALT 44 U/L (0-41) H 01/04/25 02:12 Alkaline Phosphatase 98 U/L (40-130) 01/04/25 02:12 Troponin T Baseline 69 ng/L (0-15) H 01/03/25 20:00 Troponin T 120 Minute 85.20 ng/L (0-15) H 01/03/25 21:47 Delta Troponin T 16.20 ABS# (0-10) H* 01/03/25 21:47 Troponin T Hi Sens 6Hr 178.0 ng/L (0-15) H 01/04/25 02:12 Troponin T Hi Sens 6Hr Delta 109.0 ng/L (0-12) H* 01/04/25 02:12 NT-Pro-B Natriuret Pep 697 pg/mL (0-125) H 01/03/25 20:00 Total Protein 6.7 g/dL (6.6-8.7) 01/04/25 02:12 Albumin 4.4 g/dL (3.5-5.2) 01/04/25 02:12 Globulin 2.3 g/dL (1.3-4.6) 01/04/25 02:12 Triglycerides 224 mg/dL (0-150) H 01/04/25 02:12 Cholesterol 121 mg/dL (0-200) 01/04/25 02:12 LDL Cholesterol, Calc 54 mg/dL (50-129) 01/04/25 02:12 Total VLDL Cholesterol 45 mg/dL (0-30) H 01/04/25 02:12 HDL Cholesterol 22 mg/dL (60-100) L 01/04/25 02:12 Cholesterol/HDL Ratio 5.50 mg/dL (1.0-5.00) H 01/04/25 02:12 Vitamin B12 638 pg/mL (232-1245) 01/04/25 02:12 TSH 1.50 uIU/mL (0.27-4.20) 01/03/25 20:00 A&P Assessment and plan 1. Atherosclerosis of [place] coronary artery of [place] heart with unstable angina pectoris: Patient has features suggestive of unstable angina complicated with non-ST elevation myocardial infarction. Hemodynamically seems to be stable. At this point, he may be treated with subcu Lovenox, beta-joyce, aspirin, Plavix and other symptomatic measures. He may be kept on dual current medications. I may hold off on the Eliquis at this time. The 6-hour delta on the troponin T was 109. Will continue on the Lovenox 2. Hypercholesterolemia: May continue on the current medications. 3. History of arterial thrombosis: Patient seems to have acute on chronic limb ischemia involving the left lower extremity. I may Go ahead and do an arterial Doppler examination of both lower extremities to further evaluate. Patient had recent invention at the [facility]. We will try to get the results of the peripheral intervention. Medical records are pending. The duplex function of the lower extremity also is pending 4. Ischemic cardiomyopathy: The LV ejection fraction was 46% by echocardiogram. We may do a repeat echocardiogram to evaluate LV function and rule out any other pathology. Echocardiogram is pending 5. Nicotine dependence, cigarettes, uncomplicated: Patient strongly advised to quit smoking 6. Hypertension, essential: Currently the patient is normotensive. 7. Type 2 diabetes mellitus with diabetic neuropathy, with long-term current use of insulin: The blood sugar need to be closely monitored. Plan: EKG today Echocardiogram in the duplex admission of the lower extremity arteries today Try to get the medical records from [place] Continue on the current medications Possible cardiac catheterization tomorrow Based on clinical progress on the results of the above, further recommendations will be PDMP PDMP Reviewed: Not Reviewed Attestations 2 Medical Necessity Statement*: Patient requires continued hospital stay for close monitoring and further management Coding Level of Care Code 68870 Diagnoses Atherosclerosis of [place] coronary artery of [place] heart with unstable angina pectoris I25.110 [place] vs. transplanted heart: [place] heart Hypercholesterolemia E78.00 History of arterial thrombosis Z86.718 Ischemic cardiomyopathy I25.5 Nicotine dependence, cigarettes, uncomplicated F17.210 Hypertension, essential I10 Type 2 diabetes mellitus with diabetic neuropathy, with long-term current use of insulin E11.40; Z79.4 Diabetes mellitus complication detail: with unspecified neuropathy Diabetes mellitus complication status: with neurologic complications Diabetes mellitus fpc insulin use: with supervisor intermediates use
--- NOTE | 2025-01-04 14:03 | P.PN_ITS ---
Subjective 2 Subjective: Denies any active chest pain. pain has resolved since being admitted. had lower limb balloon angioplasty done 6 months ago. Denies any nausea, vomiting, headache. has not taken aspirin over last 6 months as it was never refilled. Has been taking Eliquis regularly. Vitals/I&O/Wt Last Vital Signs Temp 96.2 F L 01/04/25 12:00 Pulse 78 01/04/25 12:00 Resp 13 01/04/25 12:12 BP 103/74 01/04/25 12:00 Pulse Ox 96 01/04/25 12:12 O2 Del Method Nasal Cannula 01/04/25 12:00 O2 Flow Rate 2 01/04/25 08:06 01/03/25 01/04/25 01/04/25 22:59 06:59 14:59 Intake Total 480 / 480 240 / 240 Balance 480 / 480 240 / 240 Weight last 48 hrs Weight 125.01 kg Weight 126.235 kg Weight 122.47 kg Physical Exam 2 Narrative: General: Alert and oriented, lying comfortably without any distress HEENT: Normocephalic, atraumatic, grossly unremarkable exam Cardio: normal rate rhythm, normal S1-S2 without any murmurs, rubs, or gallops and JVD normal Respiratory: normal vascular breathing on auscultation without any wheezes, stridor, rhonchi GI: Abdomen soft, nontender, nondistended, normoactive bowel sounds present all 4 quadrants, Neuro: intact cranial nerves motor and sensory and cerebellar/coordination function without any focal neurological deficit Behavior: Appropriate and cooperative Extremities: Adequate palpable pulses however dorsalis pedis on the left side was feeble, having some discoloration of his little toe and side of the heel. Patient has Surgery alonso on medial and lateral side of the stee[place]. Trace pedal edema Skin: As mentioned above Data 01/04/25 02:12 01/04/25 02:12 A&P Assessment and plan 1. Non-ST elevated myocardial infarction (non-STEMI): Appreciate troponin cycled. Loaded with aspirin and Plavix on admission. Continue with aspirin, statin. Full dose Lovenox 1 mg/kg body weight every 12 hourly. Eliquis on hold. Metoprolol 12.5 mg twice daily. Echocardiogram done. Results awaited. Plan for cardiac angiogram in a.m. possibly. N.p.o. after midnight. Will confirm with cardiology. 2. Atherosclerosis of [place] coronary artery of [place] heart with unstable angina pectoris: 3. Hypertension, essential: Goal blood pressure less than 140/90 L[place]. Continue with home dose of metoprolol. Holding off on losartan as patient might need cardiac angiogram. Uptitrate as for goal blood pressure. 4. Diabetic ulcer of left fifth toe: A1c 6.3 recently. Insulin sliding scale Wound care for the left foot small toe and heel discoloration 5. Arterial insufficiency of lower extremity: Continue on dual antiplatelet therapy with statins As per patient post balloon angioplasty 6 months ago. Awaiting documents from [facility]. 6. Claudication: Appreciate cardiology recommendations. Patient continues to smoke. Awaiting lower limb arterial duplex. 7. Type 2 diabetes mellitus with diabetic neuropathy, with long-term current use of insulin: Insulin sliding scale and monitoring of blood glucose 8. Hypercholesterolemia: Home dose statins to continue Plan: Leukocytosis: Seems to be chronic. Going over 21,000 in the past as well. Patient does not have any infectious source for now. Check urinalysis. Hold off on antibiotics for now. Check blood culture. Full code Cardiac carb consistent diet Full dose Lovenox will be sufficient for DVT prophylaxis Protonix for PUD prophylaxis PDMP PDMP Reviewed: Not Reviewed Attestations 2 Medical Necessity Statement*: Requires further hospitalization for management of non-ST elevation IA in a patient with history of A-fib, peripheral arterial disease Diagnoses Non-ST elevated myocardial infarction (non-STEMI) I21.4 Atherosclerosis of [place] coronary artery of [place] heart with unstable angina pectoris I25.110 [place] vs. transplanted heart: [place] heart Hypertension, essential I10 Diabetic ulcer of left fifth toe E11.621; L97.529 Arterial insufficiency of lower extremity I73.9 Claudication I73.9 Type 2 diabetes mellitus with diabetic neuropathy, with long-term current use of insulin E11.40; Z79.4 Diabetes mellitus intermediate insulin use: with intermediate use Diabetes mellitus complication status: with neurologic complications Diabetes mellitus complication detail: with unspecified neuropathy Hypercholesterolemia E78.00
--- NOTE | 2025-01-04 20:14 | P.EN_ITS ---
Event Note Event Note: Marked thrombocytosis: patient having marked thrombocytosis, that hasnt been worked and no Sunil stat mutation analysis in the records or any other hematology/oncology note? probably will benefit from outpatient referral to hematology/oncology? consider at the time of discharge Event Notes Attestations Time Spent in Patient Care: less than 15 minutes (>than 50% of time spent in counselling and/or direct pt care on unit) .
[2025-01-04] MEDS: HYDROcodone-acetaminophen 5-325 mg Tablet 1 TAB PO (20:37)
--- NOTE | 2025-01-04 23:52 | USCV_ITS ---
Bennett Millard Age: 54 Gender: M : 1970 Exam Date: 01/04/2025 13:29 Ordering Phys: Praveena Bustos MD ([email or web address]) Technologist: ZEKE Exam Location: [facility] [place] Indication: leg pain Risk Factors: Previous Vascular Surgery: RIGHT LEFT BP: 113.0 / 89.00 BP: 107.0/ 79.00 0 0 Waveform Velocity (cm/s) Velocity (cm/s) Waveform Triphasic 54.0 Iliac Prox 71.0 Triphasic Triphasic 59.0 Iliac Mid 84.0 Triphasic Triphasic 45.0 Iliac Distal 83.0 Triphasic Triphasic 66.0 SUPERVISOR GEAR REPAIR 102.0 Triphasic Triphasic 63.0 SFA Prox 106.0 Triphasic Triphasic 61.0 SFA Mid 66.0 Triphasic Triphasic 45.0 SFA Dist 42.0 Triphasic Triphasic 44.0 POP 112.0 Triphasic Triphasic 68.0 CONTACT CENTER ASSISTANT 27.0 Monophasic Triphasic 24.0 DPA 19.0 Monophasic ARIS 0.6 FINDINGS aris right n/a noncrompressible aris left .62 Normal arterial Doppler waveforms and velocities on the right side. Mild diffuse plaque in the iliac and femoral arteries. The ankle vessels were noncompressible so the ARIS could not be obtained. Normal Doppler waveforms and velocities in the on the left side up to the popliteal artery. The antecubital and vertebral arteries on the left side were found to have monophasic Doppler waveforms , continuous and low amplitude. CONCLUSIONS 1. Abnormal resting ARIS on the left side suggesting moderate peripheral artery disease. The abnormal Doppler waveforms are suggesting infrapopliteal occlusion with collateral filling of the posterior tibial and antecubital arteries 2. Noncompressible ankle vessels on the right side suggesting extensive arterial sclerosis. Compared to the study from 12/19/2024, there may not be a significant change Dr Praveena Bustos MD [facility] (Electronically Signed) Final Date: 04 January 2025 16:53 S
--- NOTE | 2025-01-04 23:52 | USCV_ITS ---
Bennett Millard Age: 54 Gender: M : 1970 Exam Date: 01/04/2025 07:54 Ordering Phys: Praveena Bustos MD ([email or web address]) Technologist: Jose Luis Broussard [place] [facility] [place]: NSTEMI BP: 104 / 76 HR: 76 Rhythm: Sinus Technical Quality: Adequate MEASUREMENTS (Male / Female) Normal Values 2D ECHO LV Diastolic Diameter PLAX 5.6 cm 4.2 - 5.9 / 3.9 - 5.3 cm IVS Diastolic Thickness 1.2 cm 0.6 - 1.0 / 0.6 - 0.9 cm IVS Systolic Thickness 1.6 cm LVPW Diastolic Thickness 1.5 cm 0.6 - 1.0 / 0.6 - 0.9 cm LVPW Systolic Thickness 1.0 cm LVOT Diameter 2.0 cm LV Ejection Fraction 2D Teich 40.0 % LV Ejection Fraction MOD 4C 40.5 % LV Ejection Fraction MOD 2C 48.5 % LV Ejection Fraction 2C AL 45.9 % LA Diameter 4.7 cm RA Systolic Volume 4C AL 33.5 ml RA Systolic Volume 4C MOD 31.7 ml LA Sys Volume AL 80.6 cm cubed LA Sys Volume Index AL 30.8 cm cubed/m squared Aorta at Sinotubular Diameter 2.8 cm IVC Diameter 1.9 cm M-MODE LA Ao Ratio MM 1.3 AV Cusp Separation MM 2.0 cm DOPPLER AV Peak Velocity 124.0 cm/s LVOT Peak Velocity 63.0 cm/s AV Area Cont Eq vti 1.7 cm squared AV Area Cont Eq pk 1.6 cm squared MV Peak Velocity 101.0 cm/s MV Area PHT 5.1 cm squared Mitral E to A Ratio 0.7 TR Peak Velocity 295.0 cm/s TR Peak Gradient 34.8 mmHg TR Mean Velocity 244.0 cm/s TR Mean Gradient 24.9 mmHg TR Velocity Time Integral 102.1 cm PV Peak Velocity 101.0 cm/s RV Ejection Time 0.2 s FINDINGS Left Ventricle Moderate hypokinesia of the mid and apical septum and the anteroseptal segment. Severe diffuse hypokinesia of the LV apex. Mildly dilated LV cavity.mild left ventricular hypertrophy. Grade I/IV diastolic dysfunction (abnormal relaxation filling pattern), normal to mildly elevated filling pressures. LV ejection fraction was 48%. Right Ventricle Normal right ventricular size and systolic function. Right Atrium Normal right atrial size. Left Atrium Mildly increased left atrial size. IA Septum Normal appearance of the interatrial septum. Mitral Valve Trace to mild mitral valve regurgitation. Aortic Valve No gross abnormalities Tricuspid Valve Trace tricuspid valve regurgitation. Pulmonic Valve Pulmonic valve not well visualized. Pericardium No pericardial effusion. Aorta Normal aortic annulus size. IVC Inferior vena cava not visualized. CONCLUSIONS Moderate hypokinesia of the mid and apical septum and the anteroseptal segment. Severe diffuse hypokinesia of the LV apex. Mildly dilated LV cavity.mild left ventricular hypertrophy. Grade I/IV diastolic dysfunction (abnormal relaxation filling pattern), normal to mildly elevated filling pressures. LV ejection fraction was 48%. Trace to mild mitral valve regurgitation. Trace tricuspid valve regurgitation. Contrast echocardiogram revealed no evidence of any LV thrombus Compared to study from 07/22/2024, there may not be significant change Dr Praveena Bustos MD [facility] (Electronically Signed) Final Date: 04 January 2025 19:02 S
[2025-01-05] VITALS (60 sets, daily range): BP systolic 94–129; BP diastolic 70–93; PULSE 67–85; RESP 11–29; TEMP 37; O2SAT 93–98
[2025-01-05 05:06] LABS: Hematocrit 51.0 % (37-53); Hemoglobin 16.40 g/dL (11.27-16.99); Mean Corpuscular HGB Conc 32.2 g/dL (30-55); Mean Corpuscular Hemoglobin 27.7 pg (27-33); Mean Corpuscular Volume 86.1 fl (82-101); Nucleated Red Blood Cells % 0 %; Platelet Count 886 10^3/cmm (157-399); Red Blood Count 5.92 10^6/uL (3.85-5.65); White Blood Count 14.78 10^3/uL (3.29-11.43)
[2025-01-05 05:15] LABS: Glucose Urine UA 3+ (Normal); Nitrate Urine Negative (Negative); Specific Gravity, Urine 1.019 (1.005-1.030)
[2025-01-05 05:24] LABS: Alanine Aminotransferase 43 U/L (0-41); Albumin Level 4.2 g/dL (3.5-5.2); Alkaline Phosphatase 93 U/L (40-130); Anion Gap 15.4 (5-19); Aspartate Amino Transferase 32 U/L (0-40); Blood Urea Nitrogen 14 mg/dL (6-20); Calcium 9.3 mg/dL (8.5-10.5); Carbon Dioxide 26 mmol/L (22-29); Chloride 103 mmol/L (98-107); Globulin 3.1 g/dL (1.3-4.6); Glucose 105 mg/dL (65-115); Magnesium 2.3 mg/dL (1.7-2.3); Osmolality Calculated 291 mOsm/kg (285-295); Potassium 4.4 mmol/L (3.5-5.1); Sodium 140 mmol/L (136-145); Total Protein 7.3 g/dL (6.6-8.7)
[2025-01-05 05:27] LABS: Creatinine Clr Calc Pharmacy 202.7896
[2025-01-05 05:29] LABS: Add Urine Microscopic? YES; UA Manual Slide Review YES
[2025-01-05] MEDS: HYDROcodone-acetaminophen 5-325 mg Tablet 1 TAB PO (05:51)
[2025-01-05] MEDS: morphine 4 mg/mL SDV 1 mL 2 MG IVP ×3 (09:18→22:16)
--- NOTE | 2025-01-05 09:58 | P.PN_ITS ---
Subjective 2 Subjective: Patient denies any chest pain or chest tightness. Has some shortness of breath with activities. No orthopnea or PND. Medications: Medication Review Details: Current Medications Hydrocodone Bitart/Acetaminophen (Hydrocodone-Acetaminophen 5-325 Mg Tablet) 1 tab PO Q4H PRN PRN Reason: MODERATE TO SEVERE PAIN Last Admin: 01/05/25 05:51 Dose: 1 tab Al Hydrox/Mg Hydrox/Simethicone (Bpmk-Wem-Flsnxdxoo-Katiana 30 Ml Udc) 15 ml PO Q6H PRN PRN Reason: INDIGESTION Aspirin (Aspirin 81 Mg Chew Tablet) 81 mg PO DAILY [facility] Last Admin: 01/05/25 04:44 Dose: 81 mg Atorvastatin Calcium (Atorvastatin 40 Mg Tablet) 80 mg PO DAILY [facility] Last Admin: 01/05/25 04:45 Dose: 80 mg Calcium Carbonate (Calcium Carbonate 500 Mg Chew Tablet) 1,000 mg PO Q4H PRN PRN Reason: DYSPEPSI Enoxaparin Sodium (Enoxaparin 120 Mg/0.8 Ml Syringe) 120 mg SUBCUT Q12H [facility] Last Admin: 01/04/25 23:08 Dose: 120 mg Gabapentin (Gabapentin 300 Mg Capsule) 600 mg PO TID [facility] Last Admin: 01/05/25 04:46 Dose: Not Given Sodium Chloride (Sodium Chloride 0.9%) 1,000 mls @ 50 mls/hr IV .Q20H ONE Stop: 01/06/25 04:17 Last Admin: 01/05/25 09:18 Dose: 50 mls/hr Metoprolol Tartrate (Metoprolol Tartrate 25 Mg Tablet) 12.5 mg PO BID [facility] Last Admin: 01/05/25 04:45 Dose: 12.5 mg Morphine Sulfate (Morphine 4 Mg/Ml Sdv 1 Ml) 2 mg IVP Q4H PRN PRN Reason: SEVERE PAIN Last Admin: 01/05/25 09:18 Dose: 2 mg Nicotine (Nicotine 21 Mg Patch) 1 patch TRANSDERMA DAILY [facility] Last Admin: 01/05/25 04:45 Dose: 1 patch Nitroglycerin (Nitroglycerin 0.4 Mg Sublingual Tablet) 0.4 mg SUBLINGUAL Q5M PRN PRN Reason: CHEST PAIN Ondansetron HCl (Ondansetron 2 Mg/Ml Sdv 2 Ml) 4 mg IVP Q8H PRN PRN Reason: vomiting, or N/V if npo Pantoprazole Sodium (Pantoprazole Dr 40 Mg Tablet) 40 mg PO DAILY ERASMO Last Admin: 01/05/25 04:45 Dose: 40 mg Vitals/I&O/Wt Last Vital Signs Temp 98.6 F 01/05/25 08:00 Pulse 72 01/05/25 08:00 Resp 20 H 01/05/25 09:18 BP 104/70 01/05/25 08:00 Pulse Ox 93 01/05/25 09:18 O2 Del Method Room Air 01/05/25 08:00 O2 Flow Rate 2 01/04/25 20:00 01/04/25 01/05/25 01/05/25 22:59 06:59 14:59 Intake Total 358 / 598 720 / 1318 Output Total 0 / 0 Balance 358 / 598 720 / 1318 Weight last 48 hrs Weight 274 lb 6.4 oz Weight 275 lb 9.6 oz Weight 278 lb 4.8 oz Weight 270 lb Physical Exam 2 Narrative: GENERAL: The patient is alert and oriented times three. Not in any acute distress. HEENT: No significant pallor, icterus or lymphadenopathy.Oral cavity: There are no mucous membrane lesions. NECK: Trachea appears to be central. No masses noted. No JVD or thyromegaly appreciated. RESPIRATORY: Chest is symmetrical. No intercostals muscle retraction or any accessory muscle activation. There is no chest wall tenderness. Breath sounds are heard bilaterally. No rales or rhonchi heard. No evidence of any consolidation. BREASTS: Deferred. HEART: The heart sounds are normal. No S3 or S4. No significant murmurs. No pericardial rub ABDOMEN: No vessel pulsations or distention. No tenderness. No organomegaly appreciated. Bowel sounds are normally heard. : Deferred. RECTAL: Deferred. LYMPHATIC: No lymphadenopathy noted in the neck. EXTREMITIES: The left little toe has bluish discoloration. This is somewhat chronic. It is painful as well. Dorsalis pedis and posterior to pulses are nonpalpable on the left side. Posterior tibial pulse is palpable on the right side but he is weak. MUSCULOSKELETAL: No acute joint deformities or swelling SKIN: There are no significant rashes or ecchymosis NEUROPSYCHIATRIC: The patient is alert and oriented x3. Appears to be in a good mood. No tremors or rigidity noted. Data 01/05/25 04:40 01/05/25 04:40 Other Labs: Laboratory Last Values WBC 14.78 10^3/uL (3.29-11.43) H 01/05/25 04:40 RBC 5.92 10^6/uL (3.85-5.65) H 01/05/25 04:40 Hgb 16.40 g/dL (11.27-16.99) 01/05/25 04:40 Hct 51.0 % (37-53) 01/05/25 04:40 MCV 86.1 fl (82-101) 01/05/25 04:40 MCH 27.7 pg (27-33) 01/05/25 04:40 MCHC 32.2 g/dL (30-55) 01/05/25 04:40 RDW 14.8 % (12.1-15.1) 01/05/25 04:40 Plt Count 886 10^3/cmm (157-399) H 01/05/25 04:40 MPV 8.9 fL (7.4-10.4) 01/05/25 04:40 Neut % (Auto) 57.6 % 01/05/25 04:40 Lymph % (Auto) 32.5 % 01/05/25 04:40 [place] % (Auto) 6.8 % 01/05/25 04:40 Eos % (Auto) 2.0 % 01/05/25 04:40 Baso % (Auto) 0.7 % 01/05/25 04:40 Neut # (Auto) 8.51 10^3/uL (1.8-7.7) H 01/05/25 04:40 Lymph # (Auto) 4.8 10^3/uL (0.8-4.8) 01/05/25 04:40 [place] # (Auto) 1.0 10^3/uL (0.2-0.9) H 01/05/25 04:40 Eos # (Auto) 0.3 10^3/uL (0.0-0.8) 01/05/25 04:40 Baso # (Auto) 0.1 10^3/uL (0.0-0.1) 01/05/25 04:40 Nucleated RBC % (auto) 0 % 01/05/25 04:40 Nucleated RBCs # 0.0 /100WBC 01/05/25 04:40 Sodium 140 mmol/L (136-145) 01/05/25 04:40 Potassium 4.4 mmol/L (3.5-5.1) 01/05/25 04:40 Chloride 103 mmol/L (98-107) 01/05/25 04:40 Carbon Dioxide 26 mmol/L (22-29) 01/05/25 04:40 Anion Gap 15.4 (5-19) 01/05/25 04:40 BUN 14 mg/dL (6-20) 01/05/25 04:40 Creatinine 0.6 mg/dL (0.7-1.2) L 01/05/25 04:40 GFR Calculation 140.4 mL/min (90-130) H 01/05/25 04:40 Glucose 105 mg/dL (65-115) 01/05/25 04:40 POC Glucose 117 mg/dL (70-110) H 01/04/25 06:40 Calculated Osmolality 291 mOsm/kg (285-295) 01/05/25 04:40 Calcium 9.3 mg/dL (8.5-10.5) 01/05/25 04:40 Magnesium 2.3 mg/dL (1.7-2.3) 01/05/25 04:40 Magnesium Cancelled 01/05/25 04:40 Iron 52 ug/dL (59-158) L 01/04/25 02:12 TIBC 252 mcg/dl 01/04/25 02:12 % Saturation 20.6 % (20-50) 01/04/25 02:12 Unsat Iron Binding 200 ug/dL (112-347) 01/04/25 02:12 Total Bilirubin 0.6 mg/dL (0.15-1.2) 01/05/25 04:40 AST 32 U/L (0-40) 01/05/25 04:40 ALT 43 U/L (0-41) H 01/05/25 04:40 Alkaline Phosphatase 93 U/L (40-130) 01/05/25 04:40 Troponin T Baseline 69 ng/L (0-15) H 01/03/25 20:00 Troponin T 120 Minute 85.20 ng/L (0-15) H 01/03/25 21:47 Delta Troponin T 16.20 ABS# (0-10) H* 01/03/25 21:47 Troponin T Hi Sens 6Hr 178.0 ng/L (0-15) H 01/04/25 02:12 Troponin T Hi Sens 6Hr Delta 109.0 ng/L (0-12) H* 01/04/25 02:12 NT-Pro-B Natriuret Pep 697 pg/mL (0-125) H 01/03/25 20:00 Total Protein 7.3 g/dL (6.6-8.7) 01/05/25 04:40 Albumin 4.2 g/dL (3.5-5.2) 01/05/25 04:40 Globulin 3.1 g/dL (1.3-4.6) 01/05/25 04:40 Triglycerides 224 mg/dL (0-150) H 01/04/25 02:12 Cholesterol 121 mg/dL (0-200) 01/04/25 02:12 LDL Cholesterol, Calc 54 mg/dL (50-129) 01/04/25 02:12 Total VLDL Cholesterol 45 mg/dL (0-30) H 01/04/25 02:12 HDL Cholesterol 22 mg/dL (60-100) L 01/04/25 02:12 Cholesterol/HDL Ratio 5.50 mg/dL (1.0-5.00) H 01/04/25 02:12 Vitamin B12 638 pg/mL (232-1245) 01/04/25 02:12 Folate 13.3 ng/mL (4.5-32.2) 01/05/25 04:40 TSH 1.50 uIU/mL (0.27-4.20) 01/03/25 20:00 Urine Color Yellow (Yellow) 01/05/25 04:35 Urine Appearance Clear (CLEAR) 01/05/25 04:35 Urine pH 5.0 (5-7) 01/05/25 04:35 Ur Specific [place] 1.019 (1.005-1.030) 01/05/25 04:35 Urine Protein Negative (Negative) 01/05/25 04:35 Urine Glucose (UA) 3+ (Normal) H 01/05/25 04:35 Urine Ketones Negative (Negative) 01/05/25 04:35 Urine Blood Negative (Negative) 01/05/25 04:35 Urine Nitrate Negative (Negative) 01/05/25 04:35 Urine Bilirubin Negative (Negative) 01/05/25 04:35 Urine Urobilinogen 0.2 mg/dL (Negative) 01/05/25 04:35 Ur Leukocyte Esterase Negative (Negative) 01/05/25 04:35 Urine RBC 0-2 /hpf (0-2) 01/05/25 04:35 Urine WBC 5-10 /hpf (0-5) H 01/05/25 04:35 Ur Squamous Epith Cells 5-10 /hpf (0-5) H 01/05/25 04:35 Amorphous Sediment Not Reportable 01/05/25 04:35 Urine Bacteria None /hpf (NONE) 01/05/25 04:35 Micro: Microbiology 01/05/25 04:40 Blood Culture - Preliminary Blood SPECIMEN COLLECTED 01/05/25 04:38 Blood Culture - Preliminary Blood SPECIMEN COLLECTED A&P Assessment and plan 1. Atherosclerosis of [place] coronary artery of [place] heart with unstable angina pectoris: Patient has features suggestive of unstable angina complicated with non-ST elevation myocardial infarction. Hemodynamically seems to be stable. Will continue on the current management Planning to have the cardiac catheterization today. 2. Hypercholesterolemia: May continue on the current medications. 3. History of arterial thrombosis: Patient seems to have acute on chronic limb ischemia involving the left lower extremity. I may Go ahead and do an arterial Doppler examination of both lower extremities to further evaluate. Patient had recent invention at the [facility]. We will try to get the results of the peripheral intervention. Received medical records from the [facility]. Patient had total occlusion of 90 tibial artery which was intervened and underwent balloon angioplasty. Patient was supposed to be taking Eliquis and Plavix. For some reason, he was taking only Eliquis. 4. Ischemic cardiomyopathy: Echocardiogram was done yesterday. The LV ejection fraction was found to be 48%. Patient seems to have class II-III heart failure symptoms. We may consider GDMT 5. Nicotine dependence, cigarettes, uncomplicated: Patient strongly advised to quit smoking 6. Hypertension, essential: Currently the patient is normotensive. Continue on the current medications. 7. Type 2 diabetes mellitus with diabetic neuropathy, with long-term current use of insulin: The blood sugar need to be closely monitored. Blood sugar seems to be fairly under control. Plan: Discussed with the patient about the cardiac catheterization. The risk and benefits were discussed. The risk of bleeding, hematoma, vascular injury, myocardial infarction, myocardial perforation, malignant cardiac arrhythmias ,CVA, renal failure and other concomitant complications were explained in detail. Patient understood this well and consented to proceed. Based on the angiogram findings, further recommendations will be made PDMP PDMP Reviewed: Not Reviewed Attestations 2 Medical Necessity Statement*: Patient requires continued hospital stay for close monitoring and further management Coding Level of Care Code 84576 Diagnoses Atherosclerosis of [place] coronary artery of [place] heart with unstable angina pectoris I25.110 [place] vs. transplanted heart: [place] heart Hypercholesterolemia E78.00 History of arterial thrombosis Z86.718 Ischemic cardiomyopathy I25.5 Nicotine dependence, cigarettes, uncomplicated F17.210 Hypertension, essential I10 Type 2 diabetes mellitus with diabetic neuropathy, with long-term current use of insulin E11.40; Z79.4 Diabetes mellitus complication detail: with unspecified neuropathy Diabetes mellitus complication status: with neurologic complications Diabetes mellitus group home insulin use: with group home use
--- NOTE | 2025-01-05 11:50 | P.PN_ITS ---
Subjective 2 Subjective: No acute events overnight. Patient continues to have occasional episodes of chest heaviness. Denies any nausea, vomiting. Vitals/I&O/Wt Last Vital Signs Temp 98.6 F 01/05/25 08:00 Pulse 72 01/05/25 08:00 Resp 20 H 01/05/25 09:18 BP 104/70 01/05/25 08:00 Pulse Ox 93 01/05/25 09:18 O2 Del Method Room Air 01/05/25 08:00 O2 Flow Rate 2 01/04/25 20:00 01/04/25 01/05/25 01/05/25 22:59 06:59 14:59 Intake Total 358 / 598 720 / 1318 Output Total 0 / 0 Balance 358 / 598 720 / 1318 Weight last 48 hrs Weight 124.466 kg Weight 125.01 kg Weight 126.235 kg Weight 122.47 kg Physical Exam 2 Narrative: General: Alert and oriented, lying comfortably without any distress HEENT: Normocephalic, atraumatic, grossly unremarkable exam Cardio: normal rate rhythm, normal S1-S2 without any murmurs, rubs, or gallops and JVD normal Respiratory: normal vascular breathing on auscultation without any wheezes, stridor, rhonchi GI: Abdomen soft, nontender, nondistended, normoactive bowel sounds present all 4 quadrants, Neuro: intact cranial nerves motor and sensory and cerebellar/coordination function without any focal neurological deficit Behavior: Appropriate and cooperative Extremities: Adequate palpable pulses however dorsalis pedis on the left side was feeble, having some discoloration of his little toe and side of the heel. Patient has Surgery alonso on medial and lateral side of the [place]. Trace pedal edema Skin: As mentioned above Data 01/05/25 04:40 01/05/25 04:40 Micro: Microbiology 01/05/25 04:40 Blood Culture - Preliminary Blood SPECIMEN COLLECTED 01/05/25 04:38 Blood Culture - Preliminary Blood SPECIMEN COLLECTED A&P Assessment and plan 1. Non-ST elevated myocardial infarction (non-STEMI): Appreciate troponin cycled. Loaded with aspirin and Plavix on admission. Continue with aspirin, statin. Full dose Lovenox 1 mg/kg body weight every 12 hourly. Eliquis on hold. Metoprolol 12.5 mg twice daily. Echocardiogram done. Results awaited. Plan for cardiac angiogram in a.m. possibly. N.p.o. after midnight. Will confirm with cardiology. 2. Atherosclerosis of [place] coronary artery of [place] heart with unstable angina pectoris: 3. Hypertension, essential: Goal blood pressure less than 140/90 L[place]. Continue with home dose of metoprolol. Holding off on losartan as patient might need cardiac angiogram. Uptitrate as for goal blood pressure. 4. Diabetic ulcer of left fifth toe: A1c 6.3 recently. Insulin sliding scale Wound care for the left foot small toe and heel discoloration 5. Arterial insufficiency of lower extremity: Continue on dual antiplatelet therapy with statins As per patient post balloon angioplasty 6 months ago. Awaiting documents from [facility]. 6. Claudication: Appreciate cardiology recommendations. Patient continues to smoke. Awaiting lower limb arterial duplex. 7. Type 2 diabetes mellitus with diabetic neuropathy, with long-term current use of insulin: A1c 6.3. Continue with carb consistent diet. Insulin sliding scale. 8. Hypercholesterolemia: Home dose statins to continue Plan: Leukocytosis: Seems to be chronic. Going over 21,000 in the past as well. Patient does not have any infectious source for now. Check urinalysis. Hold off on antibiotics for now. Check blood culture. Full code Cardiac carb consistent diet Full dose Lovenox will be sufficient for DVT prophylaxis Protonix for PUD prophylaxis Plan for the day: Appreciate cardiology recommendations. Plan for cardiac angiogram today. Continue with aspirin, full dose Lovenox. Plan for loading with Plavix 100 mg one-time. Continue with statin Appreciate documentation from [facility]. Patient did have peripheral balloon angioplasty. Appreciate arterial duplex with JOSH of 0.6 on the left side. Goal blood pressure less than 140/90 mmHg. PDMP PDMP Reviewed: Not Reviewed Attestations 2 Medical Necessity Statement*: Requires further hospitalization for management of unstable angina/non-ST elevation [place] requiring cardiac angiogram, peripheral angiography for PAD Diagnoses Non-ST elevated myocardial infarction (non-STEMI) I21.4 Atherosclerosis of [place] coronary artery of [place] heart with unstable angina pectoris I25.110 [place] vs. transplanted heart: [place] heart Hypertension, essential I10 Diabetic ulcer of left fifth toe E11.621; L97.529 Arterial insufficiency of lower extremity I73.9 Claudication I73.9 Type 2 diabetes mellitus with diabetic neuropathy, with long-term current use of insulin E11.40; Z79.4 Diabetes mellitus long term care administrator insulin use: with skilled nursing use Diabetes mellitus complication status: with neurologic complications Diabetes mellitus complication detail: with unspecified neuropathy Hypercholesterolemia E78.00
--- NOTE | 2025-01-05 14:13 | W.PM.OPSUD ---
Surgery/Procedure H&P Update DATE OF PROCEDURE: January 05, 2025 DATE H&P PERFORMED: 01/03/25 H&P UPDATE INFORMATION: I have reviewed H&P completed within last 30 days, I have examined patient prior to procedure and No changes to prior documentation PREOP DIAGNOSIS: ASHD/ NSTEMI PRIMARY INDICATION FOR PROCEDURE: Unstable angina/non-ST elevation myocardial infarction/LV dysfunction PLANNED PROCEDURE: Operation Date: 01/05/25 14:30 Proposed Procedures p Cardiac Catheterization(Not Applicable) - Praveena Bustos MD PATIENT REASSESSED PRIOR TO SEDATION, WITH NO CHANGE NOTED: Yes PHYSICAL EXAM: alert, oriented x 3, clear to auscultation bilaterally and regular rate & rhythm AIRWAY EVAL/ANESTHESIA PLAN: normal airway, see other exam findings, ASA IV, Monitored Anesthesia, Local Anesthesia, Risks, benefits & alternatives of sedation and/or procedure discussed and Patient agrees to continue as planned
--- NOTE | 2025-01-05 14:25 | PC.NURSE ---
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
--- NOTE | 2025-01-05 14:30 | XACV_ITS ---
Exam Room: [facility] Ht: 193 cm Wt: 124 kg BSA: 2.61 m2 Gender: Male : 1970 Any Known Allergies: No known allergies Exam Priority: Routine Procedure(s): Procedure Description: Diagnostic procedure Procedure Description: PCI procedure Procedure Description: Left Heart Catheterization Procedure Description: Aortic Arch Angiography Procedure Description: Coronary IVUS Procedure Description: Drug Eluting Coronary Stent Procedure Description: Coronary Angiography Akash NAVA; Diagnostic Cath Status: Urgent Diagnostic Findings * The left main is a medium caliber vessel with no significant stenotic lesion. * The Left anterior descending artery appears to be flush occluded at the ostium. * The left circumflex artery is a medium caliber vessel which gives off 2 obtuse marginal arteries proximally.. First obtuse marginal branch has 85% stenosis involving the ostium. The distal artery appears to have minimal intimal irregularities. The proximal circumflex artery appears to an elongated recurrent atrial branch. * The right coronary artery is a medium caliber vessel which was found to have mild diffuse intimal regularities. The distal artery was found to be diffusely ectatic. The PLV branch is a relatively small caliber vessel which has a high-grade ostial stenosis. It was reportedly occluded in the previous angiogram. The PDA branch was found to have around 30% proximal narrowing. Diffuse intimal irregularities are noted in the distal vessel. Grade 2 right left collaterals were noted through septal perforators. PCI Status: Urgent PCI Indication: NSTE - ACS Interventional Findings * First Obtuse Marginal Branch Segment: 85% stenosis treated with a AB TREK 3.00X15 RX BALLOON, MDT R IRENE 3.5X18 GUSTABO, and MDT DMITRI EUPHORA RX 3.03H09NT BALLOON. 0% residual stenosis, MALINA: 3 flow. * Procedure detail: We engaged the left main artery with a JL 4.5 guide catheter. Run-through wire was used to cross the stenosis in OM. We predilated the stenosis with a 3.0 x 15 mm semicompliant balloon. IVUS was used to size the vessel. We then placed 3.5 x 18 mm resolute [place] drug-eluting stent. This was followed by post dilation with 3.75 x 15 mm NC balloon. Final angiogram was performed that showed excellent stent expansion and no residual stenosis. Guidewire and guide catheter were removed. Patient left the Horticulture Superintendent in a stable condition.. Conclusions 1. 54-year-old white male with a history of previous myocardial infarction and peripheral artery disease, presenting with features of an acute coronary syndrome. Had elevated troponin T suggesting non-ST elevation myocardial infarction. He underwent left heart catheterization with left and right coronary angiogram and aortogram today. Aortogram was performed because of the dilated aortic root. The findings are as follows. 2. No significant left main disease. Chronic total occlusion of the LAD at the ostium.'s left circumflex artery was found to be bifurcating proximally, giving off 2 obtuse marginal branches. The first obtuse marginal branch was found to have a high-grade around 85% lesion proximally. The right coronary artery was found to have mild diffuse disease with diffuse ectasia distally. A small PLV branch was found to have a high-grade lesion proximally, possibly recanalized vessel. LVEDP of 30 mmHg. Dilated ascending aorta measuring 4.2 cm maximum diameter. 3. I reviewed and discussed the cardiac catheterization data with Dr. Zhao. It was thought to be appropriate to consider PCI of the OM lesion. Dr. Zhao concurred with this plan and took over further management of this patient at this point. 4. S/p PCI of OM 1 with 1 stent. 5. First Obtuse Marginal Branch Segment was treated with a Balloon, Drug Eluting Stent, and Balloon. Recommendations * Triple therapy with aspirin, plavix and elquis. * High intensity statin therapy. * Outpatient cardiology follow up in 2 weeks. Interventional RX Recommendation: PCI w/o planned CABG Diagnostic RX Recommendation: PCI w/o planned CABG LV EDP: 13 mmHg Left Ventriculography Findings: * LV gram was not performed to minimize the dye overload. LVEDP was 30 mmHg. An aortogram was performed because of the dilated aortic root. * Aortogram was performed in the shallow CHADIAN view. The ascending aorta appears to be diffusely ectatic. The maximum diameter was around 4.2 cm. No significant aortic regurgitation was noted. No evidence of an aortic dissection. Pressures Phase:Rest AO : 114 / 75 ( 92 ) @ 3:47:00 PM 97 / 76 ( 87 ) @ 3:58:00 PM 110 / 58 ( 86 ) @ 4:02:00 PM 115 / 51 ( 83 ) @ 4:02:00 PM 95 / 71 ( 83 ) @ 4:18:00 PM 109 / 81 ( 95 ) @ 4:36:00 PM LV : 119 / -7 / 13 @ 4:02:00 PM 120 / -9 / 11 @ 4:02:00 PM Valves Phase:DefaultPhase AV : 2.0 @ 3:47:44 PM AV Mean Gradient: 5.0 @ 3:47:44 PM Clinical Evaluation EBL: 5mL-10mL Procedural Details Procedure Consent Obtained. Admit Source: In Patient. Pre-Procedure Time Out. Identified patient by full name and date of as verbalized by the patient/guarantor. Does the consent match the physician's order: Yes. Accurate & Complete Informed Consent: Yes. Inpatient/Outpatient History & Physical on Chart: Yes. If H&P is completed, is and addenduem needed: No; If yes, is the addendum complete: N/A. Visualize and Verify Site with Patient/Guarantor: N/A. Relevant Radiology Images available: N/A. Pre-op teaching completed and patient verbalized understanding. The risks, benefits, and alternatives of sedation and/or procedure were discussed by physician. The patient agrees to continue. Procedure started. [facility] Clinical Fraility Score: 4: Vulnerable. Horticulture Superintendent Indications: Other. Chest Pain Symptom Assessment: Typical Angina Symptoms. Cardiovascular Instability: Yes, if yes, Persistant Ischemic Symptoms. Correct patient, site and procedure confirmed by cath team. Current diagnosis: NSTEMI. PERRLA. Strong, equal hand personal banking advisor bilaterally. Lungs clear x 5 lobes. IV Site on Arrival: 20 gauge in the left anticubital. IV Fluids: 0.9% NaCl at KVO. 250 mL infused prior to laboratory animal facility supervisor. Pre Procedural Pulses: left dorsalis pedis was Doppled. Pre Procedural Pulses: right dorsalis pedis was 3+. Pre Procedural Pulses: left posterior tibial was Doppled. Pre Procedural Pulses: right posterior tibial was 3+. Oxygen started at 2liters/min via nasal canula. bilateral groins was prepped with chloroprep then draped in the usual sterile fashion. Physician notified. Baseline sample Acquired. HR: 75 BPM. Physician arrived. Physician scrubbed in. Immediate Pre-Procedure Time Out. Correct Patient: Yes; Correct Procedure: Yes; Correct Site: Yes; Correct Patient Position: Yes; Correct Supplies: Yes; Dried Flammable Prep: Yes; Blood Products Available: N/A;. Lidocaine 1% infiltrated to the right groin. Arterial access obtained with micropuncture set. A 5 lithuanian JL4 catheter in over wire. Catheter removed over the exchange wire. A 5 lithuanian JL4.5 catheter in over wire. Catheter removed over the exchange wire. A 5 lithuanian JL5 catheter in over wire. Multiple views taken of left coronary artery. Catheter inserted over the exchange wire. A 5 lithuanian JR4 catheter in over wire. Multiple views taken of right coronary artery. Catheter removed over the exchange wire. A 5 lithuanian Angled Pig catheter in over wire. EDP Sample taken: LV 119/-8,13; HR: 80 BPM; SpO2: 95%. Pullback taken: LV 120/-10,11; AO 110/58(86); Mean: 5mmHg, Peak to Peak: 2mmHg, SEP: 17sec/min; HR: 82 BPM; SpO2: 94%. Aortic root performed in CHADIAN @ 12 mL/second for a total of 36 mL. Aortic Root Visualized. Dr Zhao reviewing cine films. Catheter removed over the exchange wire. Side port of sheath attached to Normal Saline flush at KVO to maintain patency. Dr. Zhao scrubbed in to perform intervention. Patient's family updated. 6 lithuanian JL 4.5 guide catheter was inserted over the wire. Runthrough guidewire was advanced through the guide catheter to lesion in the OM. Balloon inserted to lesion in the OM. Inflation number : 1 A AB TREK 3.00X15 RX BALLOON was prepped and advanced across the 1st Ob Tabitha , then inflated to 8 ROMEO for 0:08 seconds. Inflation number: 2 The AB TREK 3.00X15 RX BALLOON was reinflated across the 1st Ob Tabitha, to 8 ROMEO for 0:02 seconds. Inflation number: 3 The AB TREK 3.00X15 RX BALLOON was reinflated across the 1st Ob Tabitha, to 10 ROMEO for 0:14 seconds. Balloon out. Stent inserted to lesion in the OM. IVUS catheter inserted over the wire. IVUS run performed of Proximal OM. IVUS catheter out. Inflation Number : 4 A LINDA Valenzuela IRENE 3.5X18 GUSTABO -Lot Number# [id number] Exp 06/12/2027 was prepped and advanced across the 1st Ob Tabitha. The stent was deployed at 12 ROMEO for 0:22 seconds. Stent balloon out over wire. Balloon inserted to lesion in the OM. Inflation number : 5 A LINDA RIZVI EUPHORA RX 3.36N32KP BALLOON was prepped and advanced across the 1st Ob Tabitha , then inflated to 14 ROMEO for 0:17 seconds. Results checked. Wire out. Guide catheter out. A Suture was successful obtaining hemostatsis at the Right Femoral artery insertion site. Physician scrubbed out. Sheath(s) sutured into position with 2-0 silk and sterile 4x4's and Op-site applied over the site. No oozing or signs and symptoms of hematoma noted. Arterial sheath flushed and connected to tranducer and pressure bag with heparinized saline. Post Procedure: Pulses reassessed and unchanged. PERRLA. Strong, equal hand personal banking advisor bilaterally. No VTE prophylaxis required. Medication's Wasted: Lidocaine 1% = 10 mL. Medication's Wasted: Nitro = 50 mg. Medication's Wasted: Verapamil = 5 mg. Medication's Wasted: Heparin = 4000 u. Medication's Wasted: Other = Fentanyl 50 mcg. Total IV fluids: 50 mL. PCI Indication: NSTE. Post-op diagnosis: Stenosis of Ostial OM S/P successful stenting x1. Complications: none. Estimated blood loss: 5mL-10mL. Responsiveness - Normal response to verbal stimuli; alert and oriented, PERRLA. Airway - Unaffected, no intervention required; spontaneous ventilation. Circulation: W/N/L, pulses unchanged. Nausea/Vomiting: No. Procedure completed. Patient transferred by bed to 1st floor. Vital chart was stopped. Access Site Site: Right Femoral artery Sheath Size: 6 Fr Hemostasis Method: Suture Hemostasis Success: Successful Procedure Medications Start: 2:34 PM Stop: 2:34 PM Medication: Versed Amount: 1 mg Route: I.V. Start: 2:35 PM Stop: 2:35 PM Medication: Fentanyl Amount: 50 mcg Route: I.V. Start: 2:41 PM Stop: 2:41 PM Medication: Versed Amount: 1 mg Route: I.V. Start: 2:55 PM Stop: 2:55 PM Medication: Versed Amount: 1 mg Route: I.V. Start: 2:55 PM Stop: 2:55 PM Medication: Fentanyl Amount: 25 mcg Route: I.V. Start: 3:15 PM Stop: 3:15 PM Medication: Versed Amount: 1 mg Route: I.V. Start: 3:17 PM Stop: 3:17 PM Medication: Fentanyl Amount: 25 mcg Route: I.V. Start: 3:29 PM Stop: 3:29 PM Medication: Aggrastat 12.5 mg/250 mL Amount: 62.5 ml Route: I.V. bolus Start: 3:29 PM Stop: 3:29 PM Medication: Aggrastat 12.5 mg/250 mL Amount: 22.5 ml/hr Route: I.V. drip Start: 3:33 PM Stop: 3:33 PM Medication: Fentanyl Amount: 25 mcg Route: I.V. I, the attending physician, have reviewed and verified all procedure medications. Yes, all medications given per verbal order History/Risk Factors Hypertension: Yes Dyslipidemia: No Peripheral Arterial Disease (PAD): Yes Myocardial Infarction (DC): No Obesity: Yes Renal Disease: No Tobacco Use: Current/Recent(w/in 1 year) Prior Interventions PCI: No CABG: No Valve Surgery: No Report Signatures Interventional Workflow Finalized by Madhu Zhao MD on 01/06/2025 10:40 AM Diagnostic Workflow Finalized by Dr Praveena Bustos MD [facility] on 01/05/2025 06:25 PM
--- NOTE | 2025-01-05 15:43 | PM.OP ---
Operative Report Date of procedure: January 05, 2025 Surgeon: Praveena Bustos MD Procedure: This patient underwent left heart catheterization with left and right coronary angiogram and an aortogram. Coronary angiogram revealed total chronic occlusion of the proximal LAD. The circumflex artery appears to gives off 2 obtuse marginal branches proximally. One of the OM branches are found to have 85% ostial stenosis. There is a very small caliber intermedius artery with mild diffuse disease. The right coronary artery was found to have diffuse ectasia distally. The PLV branch, a small caliber vessel was found to have a high-grade lesion proximally. Apparently it was completely occluded based on the previous angiogram report. The PDA branch was found to have mild diffuse intimal irregularities. The aortogram revealed a dilated aortic root with a maximum of 4.5 cm at the level of the ascending aorta. Based on the above angiographic findings, it was thought to be appropriate to consider PCI of the OM lesion. I reviewed and discussed the cardiac catheterization findings with Dr. Zhao. Dr. Zhao concurred with this plan and took over further management of this patient at this point
--- NOTE | 2025-01-05 15:45 | PM.PROC ---
Procedure Note: Date of procedure: 01/05/25 Pre-procedure diagnosis: NSTEMI Post-procedure diagnosis: other (Severe OM 1 stenosis s/p PCI with 1 stent) Procedure: (Diagnostic cath performed by Dr Bustos, PCI performed by Dr Zhao) Severe OM 1 stenosis s/p PCI with 1 stent. LAD is totally occluded and is chronic. RCA is patent with PLV disease. Aggrastat for 4 hours. Will recommend triple therapy with aspirin, plavix and eliquis for atleast 1 month and then plavix and eliquis after that. Patient will benefit from hematology work up for thrombocytosis. Sheath to be pulled at 8 PM. Performing Provider: Madhu Zhao Estimated blood loss (mL): 5 Complications: None Condition: stable Disposition: floor Coding Level of Care Code Acute Code for Zarina Hernandez
[2025-01-05] MEDS: tirofiban 5 MG/100 ML PREMIX 22.5 MG IV (16:00)
--- NOTE | 2025-01-05 16:26 | PC.NURSE ---
received from clinical laboratory assistant pt is s/p PCI with 1 GUSTABO to OM1.. Pt is sedated and still drowsy,able to open eyes when called. Pt is asked if he has any chest pain or discomfort, Pt stated, No. Pt is on 2 L NC. SR with occ PVC's, HR-70s. 6 Fr sheath intact and attached to pressure bag and in right femoral artery. Upon arrival to floor, No bleeding,hematoma or swelling when right groin site is palpated. Pedal pulses are doppled. telemetry and vs monitored per protocol post angiogram. Aggrastat drip running as ordered and per planning engineer to stop this drip in 4 Hrs. Educated sister at bedside on bedrest prior and post sheath removal to prevent bleeding risks. Sandbag applied on right leg to prevent movement of right leg. Call light provided. Bed alarm set.
--- NOTE | 2025-01-05 16:30 | PC.NURSE ---
pt reports of shoulder pain bilaterally rated pain 5 and half out of 10 per pain scale. Ekg taken and alerted Dr. Zhao via telephone. Received telephone orders to start Nitro drip at 5 mcg/min continuously for pain and repeat another EKG in 15 mins. Nitro drip started at 5 mcg/min. 1735 pain down to 3 out of 10 per pain scale. repeat ekg sent to dr zhao. 1800pm-pain is down to 2 and half out of 10. Vitals within normal limits on nitro drip. 1745 pt stated his pain is down to 1 out of 10 pain scale.
--- NOTE | 2025-01-05 16:55 | ECG_ITS ---
[facility]: 2025[facility]05 Pat Name: Bennett Millard Department: Room: 111 Gender: Male Construction Grip: : 1970 Requested By: Praveena Bustos Order Number: [id number] Jm MD: Praveena Bustos M.D. Measurements Intervals [place] Rate: 69 P: 53 NM: 184 QRS: -38 QRSD: 130 T: 112 QT: 413 QTc: 443 Interpretive Statements SINUS RHYTHM LEFT AXIS DEVIATION [QRS AXIS < -30] ANTEROSEPTAL MYOCARDIAL INFARCTION , OF INDETERMINATE AGE [40+ ms Q WAVE IN V1-V4] Compared to ECG 01/04/2025 02:18:58 No significant changes Electronically Signed On 01-05-2025 21:30:21 CDT by Praveena Bustos M.D. [email or web address] [id number]
[2025-01-05] MEDS: nitroglycerin drip 50 MG/250 ML PREMIX IV (17:25)
--- NOTE | 2025-01-05 17:58 | ECG_ITS ---
[facility] Date: 2025-01-05 Pat Name: Bennett Millard Department: Room: 111 Gender: Male Staking Engineer: : 1970 Requested By: Madhu Zhao Order Number: [id number] Jm MD: Praveena Bustos M.D. Measurements Intervals [place] Rate: 70 P: 50 IN: 181 QRS: -38 QRSD: 119 T: 110 QT: 416 QTc: 451 Interpretive Statements SINUS RHYTHM LEFT AXIS DEVIATION [QRS AXIS < -30] LOW QRS VOLTAGE IN PRECORDIAL LEADS [QRS DEFLECTION < 1.0 mV IN CHEST LEADS] ANTEROSEPTAL MYOCARDIAL INFARCTION , OF INDETERMINATE AGE [40+ ms Q WAVE IN V1-V4] Compared to ECG 01/05/2025 16:55:02 Low QRS voltage now present Myocardial infarct finding still present Electronically Signed On 01-05-2025 21:30:14 CDT by Praveean Bustos M.D. [id number] [id number]
[2025-01-05 18:22] LABS: LAB Peripheral Smear Sent for Review
[2025-01-05 18:42] LABS: Ferritin 272 ng/mL (30-400)
--- NOTE | 2025-01-05 19:32 | PC.NURSE ---
Clarified with Dr. Lal regarding aggrastat being shut off and shealth pull. Received orders that after aggrastat is turned off wait 45 minutes then can pull the shealth. At this time no orders for ptt.
--- NOTE | 2025-01-05 22:20 | PC.NURSE ---
Shedenita pull start at 2143 with Clair RN HS at bedside along with primary RN. Patient needed another dose of morphine 2mg prior to procedure. Patient then was able to tolerate procedure well. Hemostasis achieve with no hematoma formation or complications. Please see MAR and VS for more information.
[2025-01-06] VITALS (19 sets, daily range): BP systolic 94–115; BP diastolic 63–87; PULSE 66–85; RESP 11–21; TEMP 36.1–36.6; O2SAT 94–98
[2025-01-06 03:29] LABS: Hematocrit 45.2 % (37-53); Hemoglobin 14.60 g/dL (11.27-16.99); Mean Corpuscular HGB Conc 32.3 g/dL (30-55); Mean Corpuscular Hemoglobin 28.0 pg (27-33); Mean Corpuscular Volume 86.6 fl (82-101); Nucleated Red Blood Cells % 0 %; Platelet Count 754 10^3/cmm (157-399); Red Blood Count 5.22 10^6/uL (3.85-5.65); White Blood Count 13.00 10^3/uL (3.29-11.43)
[2025-01-06 03:44] LABS: Alanine Aminotransferase 41 U/L (0-41); Albumin Level 3.9 g/dL (3.5-5.2); Alkaline Phosphatase 86 U/L (40-130); Anion Gap 17.9 (5-19); Aspartate Amino Transferase 28 U/L (0-40); Blood Urea Nitrogen 16 mg/dL (6-20); Calcium 8.9 mg/dL (8.5-10.5); Carbon Dioxide 23 mmol/L (22-29); Chloride 104 mmol/L (98-107); Creatinine Clr Calc Pharmacy 173.8197; Globulin 2.1 g/dL (1.3-4.6); Glucose 75 mg/dL (65-115); Osmolality Calculated 290 mOsm/kg (285-295); Potassium 4.9 mmol/L (3.5-5.1); Sodium 140 mmol/L (136-145); Total Protein 6.0 g/dL (6.6-8.7)
[2025-01-06 03:56] LABS: Magnesium 2.3 mg/dL (1.7-2.3)
--- NOTE | 2025-01-06 08:01 | P.DS_ITS ---
Discharge Providers Date of Admission: 01/03/25 22:49 Date of Discharge: January 06, 2025 Attending Provider at Admission: Paolo Mccrray MD Attending Provider at Discharge: Aime Hernández MD Consults: Cardiology: Dr. Bustos Primary Care Provider: Chayo Gomez MD Diagnoses at Discharge Discharge Diagnosis 1. Atherosclerosis of [place] coronary artery of [place] heart with unstable angina pectoris: 2. Hypercholesterolemia: 3. History of arterial thrombosis: 4. Ischemic cardiomyopathy: 5. Nicotine dependence, cigarettes, uncomplicated: 6. Hypertension, essential: 7. Type 2 diabetes mellitus with diabetic neuropathy, with long-term current use of insulin: Reason for Visit Reason for Visit: CP SOb right arm pain Brief History: Per HPI: Bennett Millard is a 54 year old male with past medical history of hypertension, arterial insufficiency of the lower extremities s/p stenting, diabetes mellitus, coronary artery disease, nicotine dependence, hyperlipidemia, presented to the hospital with chest pain that felt like chest pressure, mid central, radiating to right arm with diaphoresis and mild dizziness. The patient did not report any nausea, vomiting, any syncope or abdominal pain. The patient had chronic lower leg pains/neuropathy secondary to arterial insufficiency. And he also suffers shortness of breath on exertion with claudication symptoms of his legs especially on the left side. The patient has been compliant to his medications however has been actively smoking about a pack a day. Patient did not report any fever, chills or any signs of infectious pathology. Rest of the review of system was unremarkable Hospital Course Hospital Course Patient was admitted to the hospital further evaluation and management of non-ST elevation MD. Cardiology was consulted. He was started on full dose anticoagulation. Critical limb ischemia was ruled out with arterial duplex which showed JOSH of 0.6. Because of ongoing chest heaviness he underwent cardiac angiogram on 01/05 and underwent PCI for severe OM1 stenosis. He was also found to have chronically occluded LAD and open RCA with disease PLV. He is been discharged dual antiplatelet therapy along with Eliquis with advised to follow-up with cardiology team as an outpatient. Physical Exam Narrative: General: Alert and oriented, lying comfortably without any distress HEENT: Normocephalic, atraumatic, grossly unremarkable exam Cardio: normal rate rhythm, normal S1-S2 without any murmurs, rubs, or gallops and JVD normal Respiratory: normal vascular breathing on auscultation without any wheezes, stridor, rhonchi GI: Abdomen soft, nontender, nondistended, normoactive bowel sounds present all 4 quadrants, Neuro: intact cranial nerves motor and sensory and cerebellar/coordination function without any focal neurological deficit Behavior: Appropriate and cooperative Extremities: Adequate palpable pulses however dorsalis pedis on the left side was feeble, having some discoloration of his little toe and side of the heel. Patient has Surgery alonso on medial and lateral side of the steele. Trace pedal edema Skin: As mentioned above Discharge Data Studies Completed and Pending Completed Studies During Hospitalization Category Date Time Status XR chest 1V portable [id number] Stat Exams 01/03/25 19:56 [place] [id number] Routine Ultrasound 01/04/25 23:52 Completed CV. 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 Right lower lobe 9.6 mm pulmonary nodule more prominent compared to prior exam, dedicated chest CT could further evaluate this. 2. Emphysematous changes. 3. Borderline cardiomegaly. Laboratory Results WBC 13.00 10^3/uL (3.29-11.43) H 01/06/25 01:14 RBC 5.22 10^6/uL (3.85-5.65) 01/06/25 01:14 Hgb 14.60 g/dL (11.27-16.99) 01/06/25 01:14 Hct 45.2 % (37-53) 01/06/25 01:14 MCV 86.6 fl (82-101) 01/06/25 01:14 MCH 28.0 pg (27-33) 01/06/25 01:14 MCHC 32.3 g/dL (30-55) 01/06/25 01:14 RDW 14.9 % (12.1-15.1) 01/06/25 01:14 Plt Count 754 10^3/cmm (157-399) H 01/06/25 01:14 MPV 8.9 fL (7.4-10.4) 01/06/25 01:14 Neut % (Auto) 63.9 % 01/06/25 01:14 Lymph % (Auto) 26.1 % 01/06/25 01:14 [place] % (Auto) 7.3 % 01/06/25 01:14 Eos % (Auto) 1.8 % 01/06/25 01:14 Baso % (Auto) 0.5 % 01/06/25 01:14 Neut # (Auto) 8.30 10^3/uL (1.8-7.7) H 01/06/25 01:14 Lymph # (Auto) 3.4 10^3/uL (0.8-4.8) 01/06/25 01:14 [place] # (Auto) 1.0 10^3/uL (0.2-0.9) H 01/06/25 01:14 Eos # (Auto) 0.2 10^3/uL (0.0-0.8) 01/06/25 01:14 Baso # (Auto) 0.1 10^3/uL (0.0-0.1) 01/06/25 01:14 Nucleated RBC % (auto) 0 % 01/06/25 01:14 Nucleated RBCs # 0.0 /100WBC 01/06/25 01:14 Peripher Smr Path Cons Sent for review 01/05/25 04:40 Sodium 140 mmol/L (136-145) 01/06/25 01:14 Potassium 4.9 mmol/L (3.5-5.1) 01/06/25 01:14 Chloride 104 mmol/L (98-107) 01/06/25 01:14 Carbon Dioxide 23 mmol/L (22-29) 01/06/25 01:14 Anion Gap 17.9 (5-19) 01/06/25 01:14 BUN 16 mg/dL (6-20) 01/06/25 01:14 Creatinine 0.7 mg/dL (0.7-1.2) 01/06/25 01:14 GFR Calculation 117.5 mL/min (90-130) 01/06/25 01:14 Glucose 75 mg/dL (65-115) 01/06/25 01:14 POC Glucose 167 mg/dL (70-110) H 01/05/25 19:59 Calculated Osmolality 290 mOsm/kg (285-295) 01/06/25 01:14 Calcium 8.9 mg/dL (8.5-10.5) 01/06/25 01:14 Magnesium 2.3 mg/dL (1.7-2.3) 01/06/25 01:14 Iron 52 ug/dL (59-158) L 01/04/25 02:12 TIBC 252 mcg/dl 01/04/25 02:12 % Saturation 20.6 % (20-50) 01/04/25 02:12 Unsat Iron Binding 200 ug/dL (112-347) 01/04/25 02:12 Ferritin 272 ng/mL (30-400) 01/05/25 04:40 Total Bilirubin 0.5 mg/dL (0.15-1.2) 01/06/25 01:14 AST 28 U/L (0-40) 01/06/25 01:14 ALT 41 U/L (0-41) 01/06/25 01:14 Alkaline Phosphatase 86 U/L (40-130) 01/06/25 01:14 Troponin T Baseline 69 ng/L (0-15) H 01/03/25 20:00 Troponin T 120 Minute 85.20 ng/L (0-15) H 01/03/25 21:47 Delta Troponin T 16.20 ABS# (0-10) H* 01/03/25 21:47 Troponin T Hi Sens 6Hr 178.0 ng/L (0-15) H 01/04/25 02:12 Troponin T Hi Sens 6Hr Delta 109.0 ng/L (0-12) H* 01/04/25 02:12 NT-Pro-B Natriuret Pep 697 pg/mL (0-125) H 01/03/25 20:00 Total Protein 6.0 g/dL (6.6-8.7) L 01/06/25 01:14 Albumin 3.9 g/dL (3.5-5.2) 01/06/25 01:14 Globulin 2.1 g/dL (1.3-4.6) 01/06/25 01:14 Triglycerides 224 mg/dL (0-150) H 01/04/25 02:12 Cholesterol 121 mg/dL (0-200) 01/04/25 02:12 LDL Cholesterol, Calc 54 mg/dL (50-129) 01/04/25 02:12 Total VLDL Cholesterol 45 mg/dL (0-30) H 01/04/25 02:12 HDL Cholesterol 22 mg/dL (60-100) L 01/04/25 02:12 Cholesterol/HDL Ratio 5.50 mg/dL (1.0-5.00) H 01/04/25 02:12 Vitamin B12 638 pg/mL (232-1245) 01/04/25 02:12 Folate 13.3 ng/mL (4.5-32.2) 01/05/25 04:40 TSH 1.50 uIU/mL (0.27-4.20) 01/03/25 20:00 Urine Color Yellow (Yellow) 01/05/25 04:35 Urine Appearance Clear (CLEAR) 01/05/25 04:35 Urine pH 5.0 (5-7) 01/05/25 04:35 Ur Specific [place] 1.019 (1.005-1.030) 01/05/25 04:35 Urine Protein Negative (Negative) 01/05/25 04:35 Urine Glucose (UA) 3+ (Normal) H 01/05/25 04:35 Urine Ketones Negative (Negative) 01/05/25 04:35 Urine Blood Negative (Negative) 01/05/25 04:35 Urine Nitrate Negative (Negative) 01/05/25 04:35 Urine Bilirubin Negative (Negative) 01/05/25 04:35 Urine Urobilinogen 0.2 mg/dL (Negative) 01/05/25 04:35 Ur Leukocyte Esterase Negative (Negative) 01/05/25 04:35 Urine RBC 0-2 /hpf (0-2) 01/05/25 04:35 Urine WBC 5-10 /hpf (0-5) H 01/05/25 04:35 Ur Squamous Epith Cells 5-10 /hpf (0-5) H 01/05/25 04:35 Amorphous Sediment Not Reportable 01/05/25 04:35 Urine Bacteria None /hpf (NONE) 01/05/25 04:35 Procedures Performed Cardiac angiogram Date of procedure: 01/05/25 Pre-procedure diagnosis: NSTEMI Post-procedure diagnosis: other (Severe OM 1 stenosis s/p PCI with 1 stent) Procedure: (Diagnostic cath performed by Dr Bustos, PCI performed by Dr Zhao) Severe OM 1 stenosis s/p PCI with 1 stent. LAD is totally occluded and is chronic. RCA is patent with PLV disease. Aggrastat for 4 hours. Will recommend triple therapy with aspirin, plavix and eliquis for atleast 1 month and then plavix and eliquis after that. Patient will benefit from hematology work up for thrombocytosis. Sheath to be pulled at 8 PM. Performing Provider: Madhu Zhao Estimated blood loss (mL): 5 Complications: Vitals Last Vital Signs Temp 96.9 F L 01/06/25 07:25 Pulse 75 01/06/25 07:25 Resp 17 01/06/25 07:25 BP 94/63 01/06/25 07:25 Pulse Ox 97 01/06/25 07:25 O2 Del Method Room Air 01/06/25 07:25 O2 Flow Rate 2 01/06/25 04:11 Discharge Plan Discharge Patient Disposition: Home Condition: Fair Prescriptions: New clopidogrel 75 mg Tablet 75 mg PO DAILY 30 Days Qty: 30 0RF Continued metoprolol tartrate 25 mg tablet 12.5 mg PO BID Qty: 60 5RF nitroglycerin 0.4 mg tablet, sublingual 0.4 mg sublingual Q5M PRN (Reason: chest pain) 30 Days Qty: 30 3RF Rx Instructions: until response; do not exceed 3 doses per episode (DME) OneTouch Ultra Test Strip See Rx Instructions .Route Qty: 100 3RF Rx Instructions: As directed (DME) blood-glucose meter Kit See Rx Instructions .Route Qty: 1 0RF Rx Instructions: As directed; ONe Touch (DME) lancets [OneTouch Delica Plus Lancet] 33 gauge misc See Rx Instructions .Route Qty: 100 3RF Rx Instructions: As directed Trulicity 0.75 mg/0.5 mL pen injector 0.75 mg SUBCUT .qwk Qty: 1 3RF atorvastatin 80 mg tablet See Rx Instructions .ROUTE .COMPLEX Qty: 30 5RF Dose Instruction: TAKE 1 TABLET BY MOUTH EVERY DAY Rx Instructions: TAKE 1 TABLET BY MOUTH EVERY DAY Eliquis 5 mg tablet See Rx Instructions .ROUTE .COMPLEX Qty: 60 5RF Dose Instruction: TAKE 1 TABLET BY MOUTH TWICE DAILY Rx Instructions: TAKE 1 TABLET BY MOUTH TWICE DAILY methocarbamol 500 mg tablet 500 mg PO TID PRN (Reason: muscle spasm) Qty: 90 5RF glimepiride 4 mg tablet 4 mg PO DAILY Qty: 90 0RF furosemide 20 mg tablet See Rx Instructions .ROUTE .COMPLEX Qty: 30 3RF Dose Instruction: TAKE 1 TABLET BY MOUTH DAILY as needed for fluid retention Rx Instructions: TAKE 1 TABLET BY MOUTH DAILY as needed for fluid retention gabapentin 300 mg capsule 600 mg PO TID Qty: 180 1RF pentoxifylline 400 mg tablet extended release 400 mg PO TID Qty: 90 4RF Rx Instructions: must administer with a meal/food aspirin 81 mg tablet,chewable 81 mg PO DAILY Qty: 30 5RF Discontinued spironolactone 25 mg tablet See Rx Instructions .ROUTE .COMPLEX Qty: 30 5RF Dose Instruction: TAKE 1 TABLET BY MOUTH EVERY DAY Rx Instructions: TAKE 1 TABLET BY MOUTH EVERY DAY No Action losartan 25 mg tablet 12.5 mg PO DAILY Qty: 30 5RF Discharge Order = DC NOW: Discharge Order (Routine); Ordered 01/06/25 Ordered By: Aime Hernández Referrals: Luis Hair MD [Hospitalist, Oncology] - 1 month Referral Note: We have notified your physician's clinic of the need for a follow-up appointment to be scheduled. If you have not heard from them within the next 2 business days, please call them directly. Praveena Bustos MD [Physician, Cardiology] - 01/22/25 3:15 pm Chayo Gomez MD [Primary Care Provider, Family Practice] - 01/20/25 3:00 pm Discharge Diet: Cardiac Discharge Activity: Resume usual activity and Increase activity as tolerated Patient Instructions: Clopidogrel (By mouth) (Plavix), Thrombocytopenia (DC), Angiogram (DC), Opioid Safety, Post Angiogram Home Care Instructions, Patient Portal & Stacey Instructions Activity Restrictions/Additional Instructions: Take aspirin, Plavix, Eliquis daily for now until discontinued by cardiology team. Check your blood pressure daily at home and maintain a blood pressure diary. Goal blood pressure is between 100?140 mmhg systolics. Once blood pressures are consistently over 120 mmHg you can start your losartan. Discharge Attestations Time Spent in Discharge Care*: greater than 30 min Specific Discharge Activities: educating patient, educating and/or supporting family/caregiver, discussing with pcp/other providers, discussing with [employer]/social workers/dc planners, documenting/other paperwork and evaluating patient/reviewing data Status at Discharge: Cognitive status at discharge: cognitively intact , Behavioral status at discharge: cooperative , Functional status at discharge: independent ambulation , Overall status at discharge: patient is back to baseline Quality Metrics Clinical Quality Measures [ No reported AMI, CVA or VTE this stay] Coding Level of Care Code 09469 Total time (in minutes) for Discharge: 65 Diagnoses Atherosclerosis of [place] coronary artery of [place] heart with unstable angina pectoris I25.110 [place] vs. transplanted heart: [place] heart Hypercholesterolemia E78.00 History of arterial thrombosis Z86.718 Ischemic cardiomyopathy I25.5 Nicotine dependence, cigarettes, uncomplicated F17.210 Hypertension, essential I10 Type 2 diabetes mellitus with diabetic neuropathy, with long-term current use of insulin E11.40; Z79.4 Diabetes mellitus complication detail: with unspecified neuropathy Diabetes mellitus complication status: with neurologic complications Diabetes mellitus halfway insulin use: with halfway use
--- NOTE | 2025-01-06 08:34 | PC.NURSE ---
patient ambulated [facility] down the [facility] hallway with no chest pain. Only needed to turn around due to foot pain.
--- NOTE | 2025-01-06 09:09 | P.PN_ITS ---
Subjective 2 Subjective: Patient is feeling okay. No recurrence of chest pain or shortness of breath. Vital signs are stable. Has no hematoma bleeding from the right groin. Medications: Medication Review Details: Current Medications Hydrocodone Bitart/Acetaminophen (Hydrocodone-Acetaminophen 5-325 Mg Tablet) 1 tab PO Q4H PRN PRN Reason: MODERATE TO SEVERE PAIN Last Admin: 01/05/25 05:51 Dose: 1 tab Al Hydrox/Mg Hydrox/Simethicone (Dgbq-Fiq-Nzucyyvrz-Katiana 30 Ml Udc) 15 ml PO Q6H PRN PRN Reason: INDIGESTION Alprazolam (Alprazolam 0.5 Mg Tablet) 0.25 mg PO TID PRN PRN Reason: ANXIETY Aspirin (Aspirin 81 Mg Chew Tablet) 81 mg PO DAILY [facility] Last Admin: 01/06/25 04:14 Dose: 81 mg Atorvastatin Calcium (Atorvastatin 40 Mg Tablet) 80 mg PO DAILY [facility] Last Admin: 01/06/25 04:14 Dose: 80 mg Atropine Sulfate (Atropine 1 Mg/Ml Sdv 1 Ml) 0.5 mg IVP PRN PRN PRN Reason: Symptomatic bradycardia Calcium Carbonate (Calcium Carbonate 500 Mg Chew Tablet) 1,000 mg PO Q4H PRN PRN Reason: DYSPEPSI Clopidogrel Bisulfate (Clopidogrel 75 Mg Tablet) 75 mg PO DAILY [facility] Last Admin: 01/06/25 04:14 Dose: 75 mg Gabapentin (Gabapentin 300 Mg Capsule) 600 mg PO TID [facility] Last Admin: 01/06/25 04:15 Dose: Not Given Glucagon (Glucagon 1 Mg/Ml Kit 1 Ml) 1 mg IM ONCE PRN; Protocol PRN Reason: Adult Acute Hypoglycemia Nursing Prot. Dextrose (D5w) 500 mls @ 0 mls/hr IV ONCE PRN; Protocol PRN Reason: Adult Acute Hypoglycemia Prot Dextrose (D10w) 125 mls @ 750 mls/hr IV PRN PRN; Protocol PRN Reason: Adult Acute Hypoglycemia Nursing Protocol Dextrose (D10w) 250 mls @ 1,000 mls/hr IV PRN PRN; Protocol PRN Reason: Adult Acute Hypoglycemia Nursing Protocol Sodium Chloride (Sodium Chloride 0.9%) 1,000 mls @ 100 mls/hr IV .Q10H [facility] Last Admin: 01/06/25 03:10 Dose: Not Given Tirofiban/Sodium Chloride (Aggrastat) 5 mg in 100 mls @ 0 mls/hr IV .Q0M [facility]; Protocol Last Titration: 01/05/25 20:05 Dose: 0 mcg/kg/min, 0 mls/hr Nitroglycerin/Dextrose (Nitroglycerin Drip) 50 mg in 250 mls @ 0 mls/hr IV .Q0M [facility]; Protocol Last Titration: 01/05/25 21:43 Dose: 0 mcg/min, 0 mls/hr Insulin Human Lispro (Insulin Lispro 100 Unit/1 Ml) 0 unit SUBCUT WM&BEDTIME [facility]; Protocol Last Admin: 01/06/25 07:34 Dose: Not Given Magnesium Hydroxide (Magnesium Hydroxide 30 Ml Udc) 30 ml PO DAILY PRN PRN Reason: CONSTIPATION Metoprolol Tartrate (Metoprolol Tartrate 25 Mg Tablet) 12.5 mg PO BID [facility] Last Admin: 01/06/25 04:15 Dose: 12.5 mg Morphine Sulfate (Morphine 4 Mg/Ml Sdv 1 Ml) 2 mg IVP Q4H PRN PRN Reason: SEVERE PAIN Last Admin: 01/05/25 21:14 Dose: 2 mg Naloxone HCl (Naloxone 0.4 Mg/Ml Sdv) 0.1 mg IVP Q2M PRN PRN Reason: RESPIRATORY RATE < 8/MIN Nicotine (Nicotine 21 Mg Patch) 1 patch TRANSDERMA DAILY [facility] Last Admin: 01/06/25 04:15 Dose: 1 patch Nitroglycerin (Nitroglycerin 0.4 Mg Sublingual Tablet) 0.4 mg SUBLINGUAL Q5M PRN PRN Reason: CHEST PAIN Ondansetron HCl (Ondansetron 2 Mg/Ml Sdv 2 Ml) 4 mg IVP Q8H PRN PRN Reason: vomiting, or N/V if npo Pantoprazole Sodium (Pantoprazole Dr 40 Mg Tablet) 40 mg PO DAILY [facility] Last Admin: 01/06/25 04:14 Dose: 40 mg Temazepam (Temazepam 15 Mg Capsule) 15 mg PO BEDTIME PRN PRN Reason: INSOMNIA Vitals/I&O/Wt Last Vital Signs Temp 96.9 F L 01/06/25 07:25 Pulse 73 01/06/25 08:21 Resp 17 01/06/25 07:25 BP 94/63 01/06/25 07:25 Pulse Ox 95 01/06/25 08:21 O2 Del Method Room Air 10/06/25 08:21 O2 Flow Rate 2 01/06/25 04:11 01/05/25 01/06/25 01/06/25 22:59 06:59 14:59 Intake Total 813.325 / 813.325 850 / 1663.325 765 / 765 Output Total 850 / 850 700 / 700 Balance -36.675 / -36.675 850 / 813.325 65 / 65 Weight last 48 hrs Weight 279 lb 6 oz Weight 274 lb 6.4 oz Physical Exam 2 Narrative: GENERAL: The patient is alert and oriented times three. Not in any acute distress. HEENT: No significant pallor, icterus or lymphadenopathy.Oral cavity: There are no mucous membrane lesions. NECK: Trachea appears to be central. No masses noted. No JVD or thyromegaly appreciated. RESPIRATORY: Chest is symmetrical. No intercostals muscle retraction or any accessory muscle activation. There is no chest wall tenderness. Breath sounds are heard bilaterally. No rales or rhonchi heard. No evidence of any consolidation. BREASTS: Deferred. HEART: The heart sounds are normal. No S3 or S4. No significant murmurs. No pericardial rub ABDOMEN: No vessel pulsations or distention. No tenderness. No organomegaly appreciated. Bowel sounds are normally heard. : Deferred. RECTAL: Deferred. LYMPHATIC: No lymphadenopathy noted in the neck. EXTREMITIES: The left little toe has bluish discoloration. This is somewhat chronic. It is painful as well. Dorsalis pedis and posterior to pulses are nonpalpable on the left side. Posterior tibial pulse is palpable on the right side but he is weak. No hematoma bleeding in the right groin. MUSCULOSKELETAL: No acute joint deformities or swelling SKIN: There are no significant rashes or ecchymosis NEUROPSYCHIATRIC: The patient is alert and oriented x3. Appears to be in a good mood. No tremors or rigidity noted. Data 01/06/25 01:14 01/06/25 01:14 Micro: Microbiology 01/05/25 04:40 Blood Culture - Preliminary Blood NEGATIVE TO DATE 01/05/25 04:38 Blood Culture - Preliminary Blood NEGATIVE TO DATE A&P Assessment and plan 1. Atherosclerosis of [place] coronary artery of [place] heart with unstable angina pectoris: Patient had a cardiac catheterization yesterday. He was found to have a high- grade lesion in the first obtuse marginal artery for which he underwent PCI. LAD was chronically occluded. Right coronary artery had mild diffuse disease and ectasia. PLV branch, relatively small caliber vessel he had a high-grade lesion at the ostium, appears to be recanalized. 2. Hypercholesterolemia: May continue on the current medications. 3. History of arterial thrombosis: Patient seems to have acute on chronic limb ischemia involving the left lower extremity. The JOSH on the left side is 0.6. Right JOSH could not be obtained because of the noncompressible ankle vessels. Patient is on long-term oral anticoagulation. 4. Ischemic cardiomyopathy: Echocardiogram was done yesterday. The LV ejection fraction was found to be 48%. Patient seems to have class II-III heart failure symptoms. We may consider GDMT 5. Nicotine dependence, cigarettes, uncomplicated: Patient strongly advised to quit smoking 6. Hypertension, essential: Currently the patient is normotensive. Continue on the current medications. 7. Type 2 diabetes mellitus with diabetic neuropathy, with long-term current use of insulin: The blood sugar need to be closely monitored. Blood sugar seems to be fairly under control. Plan: Other problems are thrombocytosis. And leukocytosis. If the patient continues to remain stable, may be discharged home from a cardiac standpoint. He needs to be kept on Eliquis, aspirin and Plavix. Increased chance of bleeding with this triple antiplatelet drug was discussed with the patient which she understands well. Please make an appointment to be seen in the [facility] in 2 weeks to see the nurse practitioner I may see him in the office in 1 month. PDMP PDMP Reviewed: Not Reviewed Attestations 2 Medical Necessity Statement*: Deferred to the primary Coding Level of Care Code 98030 Diagnoses Atherosclerosis of [place] coronary artery of [place] heart with unstable angina pectoris I25.110 [place] vs. transplanted heart: [place] heart Hypercholesterolemia E78.00 History of arterial thrombosis Z86.718 Ischemic cardiomyopathy I25.5 Nicotine dependence, cigarettes, uncomplicated F17.210 Hypertension, essential I10 Type 2 diabetes mellitus with diabetic neuropathy, with long-term current use of insulin E11.40; Z79.4 Diabetes mellitus complication detail: with unspecified neuropathy Diabetes mellitus complication status: with neurologic complications Diabetes mellitus half-way insulin use: with terminal carman use
== END 2025-01-06 11:14 | disposition home or self-care (01) | DRG 322 ==
LOC: ER 19:53 → CSU 23:40
PROVIDERS: Internal Medicine; Internal Medicine Cardiovascular Disease; Admitting Provider Student in an Organized Health Care Education/Training Program; Emergency Provider Emergency Medicine; PCP Family Medicine; Visit Provider Student in an Organized Health Care Education/Training Program
PROC: 027034Z Dilation of Coronary Artery, One Artery with Drug-eluting Intraluminal Device, Percutaneous Approach (ICD-10-PCS; principal; 2025-01-05 14:30)
DX: I21.4 Non-ST elevation (NSTEMI) myocardial infarction (principal); I50.22 Chronic systolic (congestive) heart failure; I25.2 Old myocardial infarction; I11.0 Hypertensive heart disease with heart failure; E11.40 Type 2 diabetes mellitus with diabetic neuropathy, unspecified; E11.51 Type 2 diabetes mellitus with diabetic peripheral angiopathy without gangrene; F17.210 Nicotine dependence, cigarettes, uncomplicated; I25.10 Atherosclerotic heart disease of native coronary artery without angina pectoris; I25.5 Ischemic cardiomyopathy; E78.00 Pure hypercholesterolemia, unspecified; E11.621 Type 2 diabetes mellitus with foot ulcer; L97.529 Non-pressure chronic ulcer of other part of left foot with unspecified severity; Z79.82 Long term (current) use of aspirin; Z79.84 Long term (current) use of oral hypoglycemic drugs; Z86.718 Personal history of other venous thrombosis and embolism
CPT/HCPCS: 36415; 36416; 71045; 80053; 80061; 80503; 81001; 82607; 82728; 82746; 82962; 83540; 83550; 83735; 83880; 84443; 84484; 85025; 87040; 92978; 93005; 93458; 93925; 96372; 96374; 96375; 96376; 99152; 99153; 99285; C1725; C1753; C1769; C1874; C1887; C1894; C8929; C9600; J1644; J1650; J1815; J2250; J2270; J2405; J3010; J3490; J7030; J9999; Q0163; Q9967

== ENCOUNTER → 2025-01-20 16:10 | Outpatient (BNVA) | payer BC, MEDICAID, SELFPAY | PROVIDERS: PCP Family Medicine; Visit Provider Family Medicine | DX: E11.40 Type 2 diabetes mellitus with diabetic neuropathy, unspecified (principal); Z79.4 Long term (current) use of insulin | CPT/HCPCS: 82043; 83036 ==

== ENCOUNTER 2025-01-22 07:30 | Oncology outpatient (recurring) (ONCR) | payer BC, MEDICAID, SELFPAY ==
[2025-01-08 09:39] LABS: Hematocrit 48.9 % (37-53); Hemoglobin 16.10 g/dL (11.27-16.99); Mean Corpuscular HGB Conc 32.9 g/dL (30-55); Mean Corpuscular Hemoglobin 28.0 pg (27-33); Mean Corpuscular Volume 84.9 fl (82-101); Nucleated Red Blood Cells % 0 %; Platelet Count 993 10^3/cmm (157-399); Red Blood Count 5.76 10^6/uL (3.85-5.65); White Blood Count 13.94 10^3/uL (3.29-11.43)
[2025-01-08 09:58] LABS: Alanine Aminotransferase 90 U/L (0-41); Albumin Level 4.3 g/dL (3.5-5.2); Alkaline Phosphatase 96 U/L (40-130); Anion Gap 18.3 (5-19); Aspartate Amino Transferase 50 U/L (0-40); Blood Urea Nitrogen 15 mg/dL (6-20); Calcium 9.3 mg/dL (8.5-10.5); Carbon Dioxide 23 mmol/L (22-29); Chloride 105 mmol/L (98-107); Creatinine Clr Calc Pharmacy 173.6954; Ferritin 283 ng/mL (30-400); Globulin 3.2 g/dL (1.3-4.6); Glucose 122 mg/dL (65-115); Iron 76 ug/dL (59-158); Osmolality Calculated 296 mOsm/kg (285-295); Potassium 4.3 mmol/L (3.5-5.1); Sodium 142 mmol/L (136-145); Total Iron Binding Capacity 241 mcg/dl; Total Protein 7.5 g/dL (6.6-8.7); Unsaturated Iron Binding 165 ug/dL (112-347)
--- NOTE | 2025-01-08 10:31 | PC.NURSE ---
Received call from [facility] lab stating SST5 tubes hydrolyzed. Upon reviewing labs, it was noted patients platelets were high possible creating the issue with hemolysis. Per Dr Shaffer, patient does not need to be called back in for a redraw. He will address the issue at his next visit.
[2025-01-09 14:29] LABS: Leukemia Profile (BBPL) See Report
--- NOTE | 2025-01-22 07:30 | USR_ITS ---
PROCEDURE INFORMATION: Exam: US Abdomen Complete Exam date and time: 01/22/2025 7:37 AM Age: 54 years old Clinical indication: Condition or disease; Other: Thrombocythemia TECHNIQUE: Imaging protocol: Real-time ultrasound of the abdomen with image documentation. Complete exam. COMPARISON: CT angio abd aorta runof [id number] 06/19/2024 4:00 PM FINDINGS: Liver: Measures 17.4 cm in length. Slight, diffuse increase in hepatic echogenicity. No discrete mass. Normal flow directionality in the main portal vein. Gallbladder: No visible gallstones. There is no gallbladder wall thickening. Biliary ducts: Nondilated. The common duct measures 5 mm. Pancreas: Unremarkable where imaged. Right kidney: Measures 12.8 cm in length. Cortical thickness and echogenicity within normal limits. No hydronephrosis. Simple appearing cyst measuring 2.7 cm. Left kidney: Measures 13.2 cm in length. No hydronephrosis. Cortical thickness and echogenicity within normal limits. Simple appearing cysts demonstrating posterior acoustic enhancement, measuring up to 9.0 cm. Spleen: Measures 12.6 cm in length. Aorta: Unremarkable where imaged. Inferior vena cava: Unremarkable where imaged. US/US abdomen complete* [id number] IMPRESSION: 1. No acute findings. 2. Borderline hepatomegaly with slightly increased echogenicity, could reflect mild hepatic steatosis or hepatocellular disease in the appropriate clinical setting. 3. Bilateral simple appearing renal cysts.
[2025-01-22 17:29] LABS: Anion Gap 17.7 (5-19); Blood Urea Nitrogen 19 mg/dL (6-20); Calcium 9.7 mg/dL (8.5-10.5); Carbon Dioxide 23 mmol/L (22-29); Chloride 107 mmol/L (98-107); Creatinine Clr Calc Pharmacy 151.9835; Glucose 131 mg/dL (65-115); NT Pro B Type Natriuretic Pept 494 pg/mL (0-125); Osmolality Calculated 300 mOsm/kg (285-295); Potassium 4.7 mmol/L (3.5-5.1); Sodium 143 mmol/L (136-145)
== END 2025-01-31 23:59 | disposition home or self-care (01) ==
LOC: RAD 01-23 → ONCMED 01-23 09:25
PROVIDERS: Internal Medicine; Internal Medicine Cardiovascular Disease; PCP Family Medicine; Visit Provider Internal Medicine Medical Oncology
DX: D75.839 Thrombocytosis, unspecified; R06.02 Shortness of breath; R16.0 Hepatomegaly, not elsewhere classified; R93.2 Abnormal findings on diagnostic imaging of liver and biliary tract; N28.1 Cyst of kidney, acquired; Z53.9 Procedure and treatment not carried out, unspecified reason
CPT/HCPCS: 36415; 76700; 80048; 80053; 82728; 83010; 83540; 83550; 83615; 83880; 85025; 86140; 88184; 88185

== ENCOUNTER 2025-02-12 13:38 | Outpatient (CLI) | payer BC, MEDICAID, SELFPAY ==
--- NOTE | 2025-02-12 13:42 | CTR_ITS ---
PROCEDURE INFORMATION: Exam: CT Chest With Contrast; Diagnostic Exam date and time: 02/12/2025 2:04 PM Age: 54 years old Clinical indication: Thrombocythemia TECHNIQUE: Imaging protocol: Diagnostic computed tomography of the chest with contrast. Radiation optimization: All CT scans at this facility use at least one of these dose optimization techniques: automated exposure control; mA and/or kV adjustment per patient size (includes targeted exams where dose is matched to clinical indication); or iterative reconstruction. Contrast material: OMNI 350; Contrast volume: 100 ml; Contrast route: INTRAVENOUS (IV); COMPARISON: CT chest con [id number] 11/07/2024 10:13 AM RADIATION DOSE METRICS: Total DLP (mGy-cm): 677.9 FINDINGS: Lungs: Centrilobular emphysema. No consolidation. In the right middle lobe, there are 2 pulmonary nodules. The more anterior one now measures 1.0 x 0.9 cm (previously measuring 0.9 x 0.6 cm when measured similarly) and the more posterior one measures 0.9 x 1.0 cm, unchanged. Nodule in the right lower lobe measuring up to 9 mm is also unchanged. There is an right upper lobe pulmonary nodule measuring approximately 4 mm, decreased from 5 mm on prior exam. Additional smaller pulmonary nodules are unchanged. Pleural spaces: No pneumothorax. No pleural effusion. Heart: No cardiomegaly. No pericardial effusion. Lymph nodes: Calcified mediastinal and hilar lymph nodes. Vasculature: The ascending thoracic aorta measures up to 4.2 cm. No aortic dissection. Bones/joints: No acute fracture. Soft tissues: Unremarkable. CT/CT chest w con* [id number] IMPRESSION: 1. No acute thoracic abnormality. 2. Scattered pulmonary nodules, many of which are unchanged. One of these (right middle lobe) is slightly larger and 1 of these (right upper lobe) is slightly smaller compared to 11/07/2024. If patient meets criteria for Fleischner guidelines (no history of malignancy) recommend follow-up CT in 3-6 months. If patient has a history of malignancy, recommend follow-up per oncologic guidelines. 3. Mild dilation of the ascending thoracic aorta measuring up to 4.2 cm. COMMENTS: The presence of pulmonary emphysema on CT is an independent risk factor for lung cancer. In the absence of a history or active diagnosis of lung cancer, it is recommended that this patient with emphysema be evaluated for enrollment in a low dose CT lung cancer screening program.
[2025-02-12] MEDS: iohexol 350 mg/mL 500 mL Btl (per mL) IV (14:14)
== END 2025-02-12 13:39 | disposition home or self-care (01) ==
LOC: RAD 13:39
PROVIDERS: PCP Family Medicine; Visit Provider Internal Medicine
DX: D75.839 Thrombocytosis, unspecified (principal)
CPT/HCPCS: 71260

== ENCOUNTER 2025-04-01 11:00 | Oncology outpatient (recurring) (ONCR) | payer BC, MEDICAID, SELFPAY ==
[2025-04-01 11:08] LABS: Hematocrit 49.0 % (37-53); Hemoglobin 15.90 g/dL (11.27-16.99); Mean Corpuscular HGB Conc 32.4 g/dL (30-55); Mean Corpuscular Hemoglobin 27.9 pg (27-33); Mean Corpuscular Volume 86.1 fl (82-101); Nucleated Red Blood Cells % 0 %; Platelet Count 1163 10^3/cmm (157-399); Red Blood Count 5.69 10^6/uL (3.85-5.65); White Blood Count 15.30 10^3/uL (3.29-11.43)
[2025-04-01 11:24] LABS: Alanine Aminotransferase 23 U/L (0-41); Albumin Level 4.2 g/dL (3.5-5.2); Alkaline Phosphatase 109 U/L (40-130); Anion Gap 16.4 (5-19); Aspartate Amino Transferase 17 U/L (0-40); Blood Urea Nitrogen 16 mg/dL (6-20); Calcium 9.1 mg/dL (8.5-10.5); Carbon Dioxide 24 mmol/L (22-29); Chloride 102 mmol/L (98-107); Globulin 2.7 g/dL (1.3-4.6); Glucose 152 mg/dL (65-115); Osmolality Calculated 290 mOsm/kg (285-295); Potassium 4.4 mmol/L (3.5-5.1); Sodium 138 mmol/L (136-145); Total Protein 6.9 g/dL (6.6-8.7)
[2025-04-02 05:55] LABS: PROTEIN, TOTAL 6.6 g/dL (6.1-8.1)
[2025-04-02 18:10] LABS: ALPHA 1 GLOBULIN 0.3 g/dL (0.2-0.3); ALPHA 2 GLOBULIN 0.8 g/dL (0.5-0.9); BETA 1 GLOBULIN 0.4 g/dL (0.4-0.6); BETA 2 GLOBULIN 0.5 g/dL (0.2-0.5)
[2025-04-08 13:38] LABS: CALR Exon 9 Mutation NOT DETECTED (NOT DETECTED); JAK2 Exon 12 Mutation NOT DETECTED (NOT DETECTED); JAK2 V617 Clinical Indication thrombocythemia; MPL Exon 10 Mutation DETECTED (NOT DETECTED); Specimen Source blood
== END 2025-04-02 23:59 | disposition home or self-care (01) ==
PROVIDERS: Internal Medicine; Nurse Practitioner Family; PCP Family Medicine; Visit Provider Internal Medicine Medical Oncology
DX: E78.00 Pure hypercholesterolemia, unspecified; D75.839 Thrombocytosis, unspecified; Z53.9 Procedure and treatment not carried out, unspecified reason
CPT/HCPCS: 80053; 81219; 81270; 81279; 81339; 84155; 84165; 85025; 86334; 88374